=== PATIENT | female | born 1970 | race Caucasian/White ===

== ENCOUNTER 2016-06-30 13:53 | Observation (INO) | payer OTHER ==
[2016-06-30] VITALS (11 sets, daily range): BP systolic 98–119; BP diastolic 49–74; PULSE 52–82; RESP 12–18; TEMP 97.1; O2SAT 71–99
[~2016-06-30] VITALS: Ht 147.3 cm; Wt 70.0 kg
[~2016-06-30 13:53] MED LIST: ABIL30TA2 PO; ANTI2CAP PO; BACT2OIN2 TOPICAL; CALC600T25 PO; CETALOT TOPICAL; CHOL50008 PO; DEPO150I IM; DIAZ5 PO; FERR325T PO; FURO1TAB60 PO; GUAI200T PO; HALC0.25 PO; IBUP-232 PO; K-TA10TA PO; LEXA20TA PO; LOTR15T TOPICAL; NIAC500C4 PO; PROBCAP28 PO; SODI1TAB PO; THERTAB17 PO; THICPOW5; TRIL600T PO; TYLE325T PO; ZOCO10TA PO; ZYRT10CA PO; [UNRECOGNIZED DRUG - CODE] PO; [UNRECOGNIZED DRUG - CODE] TOP; [UNRECOGNIZED DRUG - CODE] TOPICAL; [UNRECOGNIZED DRUG - OTHER] TOP; [UNRECOGNIZED DRUG - OTHER] TOP
[2016-06-30] MEDS ORDERED: RESP: ALBUTEROL 2.5 MG/IPRATROPIUM 0.5 MG NEB (SCH) INH ONE (14:00)
[2016-06-30 14:35] LABS: AUTOMATED NEUTROPHIL # 2.6 TH/MM3 (1.8-7.7); BASOPHIL # 0.1 TH/MM3 (0-0.2); BASOPHIL % 1.3 % (0.0-2.0); EOSINOPHIL # 0.3 TH/MM3 (0-0.4); EOSINOPHIL % 6.7 % (0.0-4.0); HEMO FLAGS DIFF FINAL; LYMPH % 36.3 % (9.0-44.0); LYMPHOCYTE # 1.9 TH/MM3 (1.0-4.8); MEAN CELL VOLUME 98.9 FL (80.0-100.0); MEAN CORPUSCULAR HEMOGLOBIN 32.6 PG (27.0-34.0); MONO % 5.9 % (0.0-8.0); NEUT % 49.8 % (16.0-70.0); PLATELET COUNT 192 TH/MM3 (150-450); RED BLOOD COUNT 3.54 MIL/MM3 (4.00-5.30); RED CELL DISTRIBUTION WIDTH 14.4 % (11.6-17.2); WHITE BLOOD COUNT 5.1 TH/MM3 (4.0-11.0)
--- NOTE | 2016-06-30 14:36 | RADRPT ---
EXAM DATE/TIME: 06/30/2016 13:56 [place] COMPARISON: CHEST SINGLE AP, January 28, 2013, 11:00. INDICATIONS : Short of breath. MEDICAL HISTORY : Down's syndrome. SURGICAL HISTORY : None. ENCOUNTER: Initial ACUITY: 1 day PAIN SCORE: 0/10 LOCATION: Bilateral chest FINDINGS: A single view of the chest demonstrates the lungs to be symmetrically aerated without evidence of mas s, infiltrate or effusion. The cardiomediastinal contours are unremarkable. Osseous structures are intact. CONCLUSION: No acute disease. Heidi Forbes MD on June 30, 2016 at 14:35 Board Certified Radiologist. This report was verified electronically.
[2016-06-30 14:41] LABS: PROTHROMBIN TIME - PATIENT 10.8 SEC (9.8-11.6)
--- NOTE | 2016-06-30 14:42 | PD ---
HPI Chief Complaint: Respiratory Symptoms Time Seen by Provider: 13:57 Travel History International Travel<30 days: No Contact w/Intl Traveler<30days: No Traveled to known affect area: No History of Present Illness HPI 46 years old female was brought in by EMS for respiratory distress and hypoxemia. Patient was seen at the dentist around 11:00 this morning and had IV sedation for dental work. Patient was discharged back to the [facility] facility. Patient was found to be lethargic and almost unresponsive on the couch by staff member. EMS was called. O2 saturation was 58%. Patient was given 1 nitroglycerin sublingual, Lasix 75 mg IV and transported to the ED. Patient has history of Down's syndrome and usually nonverbal. Patient is on Lasix 40 mg daily for edema. No reported history of CHF or COPD. Patient has history of seizure disorder, anemia, anxiety, dyslipidemia. PFSH Past Medical History Anemia: Yes (ANEMIA; HYPERLIPIDEMIA) Arthritis: No Asthma: No Autoimmune Disease: No Blood Disorders: Yes (ANEMIA) Anxiety: Yes Heart Rhythm Problems: No Cancer: No Cardiovascular Problems: Yes High Cholesterol: No Chemotherapy: No Chest Pain: No Congestive Heart Failure: No COPD: No Cerebrovascular Accident: No Developmental Delay: Yes (DOWN SYNDROME) Diabetes: No Diminished Hearing: No Endocrine: No Gastrointestinal Disorders: No GERD: No Glaucoma: No Genitourinary: No Headaches: No Hepatitis: No Hiatal Hernia: No Hypertension: No Immune Disorder: No Kidney Stones: No Musculoskeletal: No Neurologic: No Psychiatric: Yes (intermittent explosive d/o) Respiratory: Yes Myocardial Infarction: No Pneumonia: Yes Radiation Therapy: No Renal Failure: No Seizures: Yes Sleep Apnea: No Thyroid Disease: No Ulcer: No Tetanus Vaccination: < 5 Years Influenza Vaccination: No ?: Unknown Past Surgical History Abdominal Surgery: Yes ("GASTROINTESTINAL SURGERY UNSURE WHAT EXACTLY") AICD: No Joint Replacement: No Pacemaker: No Other Surgery: No Social History Alcohol Use: No Tobacco Use: No Substance Use: No Allergies-Medications (Allergen,Severity, Reaction): Coded Allergies: No Known Allergies (Unverified , 04/19/16) Reported Meds & Prescriptions Reported Meds & Active Scripts Active Reported Solbar Pf Liquid/Gel Spf3 (Sunscreens) 1 Gel Gel 1 Applic TOP DIRECTED PRN Halcion (Triazolam) 0.25 Mg Tab 0.5 Mg PO DIRECTED PRN Probiotic Daily (Probiotic Product) 1 Cap Cap 1 Cap PO DAILY Niacin Flush Free (Inositol Niacinate) 500 Mg Cap 500 Mg PO HS Calcium (Calcium Carbonate) 600 Mg Tab 1,200 Mg PO BID Off [facility] Unscented (Diethyltoluamide (Deet)) 7 % Spr 1 Applic TOP DIRECTED PRN Bactroban (Mupirocin) 2 % Oin 1 Applic TOPICAL BID PRN Ibuprofen 600 Mg Tab 600 Mg PO BID PRN Lotrisone Topical (Betamethasone/Clotrimazole) 1-0.05% Cream 1 Applic TOPICAL BID Apply to affected area(s) on arms,legs,perineal area for rash,mild burning or stinging Guaifenesin 200 Mg Tab 200 Mg PO Q4HR PRN Anti-Diarrheal (Loperamide HCl) 2 Mg Cap 2 Mg PO DIRECTED PRN One capsule after each loose stool. Not to exceed 4 capsules per day. Tylenol (Acetaminophen) 325 Mg Tab 650 Mg PO Q4H PRN Not to exceed 3,000mg/24hr Zeasorb-AF Topical Powder (Miconazole Topical Powder) 2 % Pow 1 Applic TOPICAL DAILY Apply to areas on inner thighs Thick-It Original (Starch-Maltodextrin (Thickenin) 1 Pow Pow DIRECTED [place] Thick Liquids Thera-M (Multiple Vitamins W/ Minerals) 1 Tab 1 Tab PO DAILY Sodium Chloride 1 Gm Tab 1 Gm PO BID Zocor (Simvastatin) 10 Mg Tab 10 Mg PO HS K-Tab (Potassium Chloride) 10 Meq Tab 10 Meq PO DAILY Trileptal (Oxcarbazepine) 600 Mg Tab 600 Mg PO BID Depo-Provera Inj (Medroxyprogesterone Inj) 150 Mg/Ml Inj 150 Mg IM Q90D Vitamin D3 (Cholecalciferol) 5,000 Unit Tab 5,000 Units PO DAILY @ 1700 Lasix (Furosemide) 40 Mg Tab 40 Mg PO DAILY Flexitol Heel [place] (Podiatric Products) 1 Oin Oin 1 Applic TOP BID Apply to both heels Ferrous Sulfate 325 Mg Tab 325 Mg PO BID Lexapro (Escitalopram Oxalate) 20 Mg Tab 20 Mg PO DAILY Valium (Diazepam) 5 Mg Tab 5 Mg PO TID [place] Pro-Health (Cetylpyridinium Chloride (Mout) 0.07 % Liq 1 Applic PO BID Moisten toothette swab with mouthwash for oral hygiene Zyrtec Allergy (Cetirizine HCl) 10 Mg Cap 10 Mg PO DAILY Cetaphil Moisturizing (Emollient) 1 Lot Lot 1 Applic TOPICAL DAILY APPLY FROM NECK TO TOES Abilify (Aripiprazole) 30 Mg Tab 30 Mg PO DAILY Review of Systems General / Constitutional: No: Fever Eyes: No: Visual changes HENT: No: Headaches Cardiovascular: No: Chest Pain or Discomfort Respiratory: No: Shortness of Breath Gastrointestinal: No: Abdominal Pain Genitourinary: No: Dysuria Musculoskeletal: No: Pain Skin: No Rash Neurologic: No: Weakness Psychiatric: No: Depression Endocrine: No: Polydipsia Hematologic/Lymphatic: No: Easy Bruising Physical Exam Narrative GENERAL: Well-nourished, well-developed patient. SKIN: Warm and dry. HEAD: Normocephalic. EYES: No scleral icterus. No injection or drainage. NECK: Supple, trachea midline. No JVD or lymphadenopathy. CARDIOVASCULAR: Regular rate and rhythm without murmurs, gallops, or rubs. RESPIRATORY: Breath sounds equal bilaterally. No accessory muscle use. Patient had diffuse rhonchi bilaterally with mild expiratory wheezes. GASTROINTESTINAL: Abdomen soft, non-tender, nondistended. MUSCULOSKELETAL: No cyanosis, or edema. BACK: Nontender without obvious deformity. No CVA tenderness. Neurologic exam: Patient awake and alert noncommunicative. Patient moves all extremity well. Data Data Last Documented VS Vital Signs Date Time Temp Pulse Resp B/P Pulse Ox O2 Delivery O2 Flow Rate FiO2 06/30/16 14:26 97 75 06/30/16 14:04 12 Non-Rebreather 15 06/30/16 14:04 75 98/57 06/30/16 13:57 97.1 Orders Electrocardiogram (06/30/16 13:57) Complete Blood Count With Diff (06/30/16 13:57) Comprehensive Metabolic Panel (06/30/16 13:57) Creatine Kinase (Cpk) (06/30/16 13:57) Troponin I (06/30/16 13:57) B-Type Natriuretic Peptide (06/30/16 13:57) Prothrombin Time / Inr (Pt) (06/30/16 13:57) Act Partial Throm Time (Ptt) (06/30/16 13:57) Blood Culture (06/30/16 13:57) Urinalysis - C+S If Indicated (06/30/16 13:57) Chest, Single Ap (06/30/16 13:57) Iv Access Insert/Monitor (06/30/16 13:57) Ecg Monitoring (06/30/16 13:57) Oximetry (06/30/16 13:57) Lactic Acid (06/30/16 13:57) Albuterol-Ipratropium Neb (Duoneb Neb) (06/30/16 14:00) Urinary Catheter Insert/Apply (06/30/16 14:27) Labs Laboratory Tests Test 06/30/16 06/30/16 06/30/16 14:00 14:15 14:30 White Blood Count 5.1 TH/MM3 Red Blood Count 3.54 MIL/MM3 Hemoglobin 11.5 GM/DL Hematocrit 35.0 % Mean Corpuscular Volume 98.9 FL Mean Corpuscular Hemoglobin 32.6 PG Mean Corpuscular Hemoglobin 33.0 % Concent Red Cell Distribution Width 14.4 % Platelet Count 192 TH/MM3 Mean Platelet Volume 10.5 FL Neutrophils (%) (Auto) 49.8 % Lymphocytes (%) (Auto) 36.3 % Monocytes (%) (Auto) 5.9 % Eosinophils (%) (Auto) 6.7 % Basophils (%) (Auto) 1.3 % Neutrophils # (Auto) 2.6 TH/MM3 Lymphocytes # (Auto) 1.9 TH/MM3 Monocytes # (Auto) 0.3 TH/MM3 Eosinophils # (Auto) 0.3 TH/MM3 Basophils # (Auto) 0.1 TH/MM3 CBC Comment DIFF FINAL Differential Comment Prothrombin Time 10.8 SEC Prothromb Time International 1.0 RATIO Ratio Activated Partial 24.0 SEC Thromboplast Time Sodium Level 134 MEQ/L Potassium Level 3.3 MEQ/L Chloride Level 98 MEQ/L Carbon Dioxide Level 27.1 MEQ/L Anion Gap 9 MEQ/L Blood Urea Nitrogen 8 MG/DL Creatinine 0.59 MG/DL Estimat Glomerular Filtration 110 ML/MIN Rate Random Glucose 123 MG/DL Calcium Level 8.1 MG/DL Total Bilirubin LESS THAN 0.1 MG/DL Aspartate Amino Transf 28 U/L (AST/SGOT) Alanine Aminotransferase 38 U/L (ALT/SGPT) Alkaline Phosphatase 102 U/L Total Creatine Kinase 91 U/L Troponin I LESS THAN 0.02 NG/ML B-Type Natriuretic Peptide 51 PG/ML Total Protein 6.8 GM/DL Albumin 2.9 GM/DL Lactic Acid Level 2.0 mmol/L Urine Color COLORLESS Urine Turbidity CLEAR Urine pH 7.0 Urine Specific [place] 1.006 Urine Protein NEG mg/dL Urine Glucose (UA) NEG mg/dL Urine Ketones NEG mg/dL Urine Occult Blood NEG Urine Nitrite NEG Urine Bilirubin NEG Urine Urobilinogen LESS THAN 2.0 MG/DL Urine Leukocyte Esterase NEG Urine RBC LESS THAN 1 /hpf Urine WBC LESS THAN 1 /hpf Urine Squamous Epithelial <1 /hpf Cells Urine Mucus FEW /lpf Microscopic Urinalysis Comment CULT NOT INDICATED MDM Medical Decision Making Medical Screen Exam Complete: Yes Emergency Medical Condition: Yes Interpretation(s) Last Impressions Chest X-Ray 06/30/16 1357 Signed Impressions: Service Date/Time: Thursday, June 30, 2016 13:56 - CONCLUSION: No acute disease. Heidi Forbes MD 1509 PM. CBC within normal limit. Sodium 134. Potassium 3.3. BNP 51. 1517 p.m. CMP within normal limit. Calcium 8.1. Cardiac enzymes are normal. UA is negative. Differential Diagnosis Differential diagnosis including medication overdose, CHF, reactive airway disease, respiratory failure, TIA, CVA, electrolyte imbalance, sepsis. Narrative Course 46 his old female with lethargy and shortness of breath. Status post sedation for dental work this morning. Patient has history of Down's syndrome and normally noncommunicative. Patient was given Lasix 75 mg IV ride to arrival. Albuterol Atrovent unit dose treatment times one. Diagnosis Primary Impression: Medication overdose Qualified Code: T50.901A - Medication overdose, accidental or unintentional, initial encounter Additional Impression: Reactive airway disease Qualified Code: J45.20 - Reactive airway disease, mild intermittent, uncomplicated Admitting Information Admitting Physician Requests: Observation Josh Painter MD Jun 30, 2016 14:41
[2016-06-30 14:54] LABS: ANION GAP 9 MEQ/L (5-15); BICARBONATE 27.1 MEQ/L (21.0-32.0); BLOOD UREA NITROGEN 8 MG/DL (7-18); CHLORIDE 98 MEQ/L (98-107); GLOMERULAR FILTRATION RATE 110 ML/MIN (>89); POTASSIUM 3.3 MEQ/L (3.5-5.1); SODIUM (NA) 134 MEQ/L (136-145)
[2016-06-30 15:00] LABS: ALKALINE PHOSPHATASE 102 U/L (45-117); ALT (GPT) 38 U/L (10-53); AST (GOT) 28 U/L (15-37); TOTAL BILIRUBIN ADULT LESS THAN 0.1 MG/DL (0.2-1.0)
[2016-06-30 15:10] LABS: CREATINE KINASE 91 U/L (26-192)
[2016-06-30 15:11] LABS: BLOOD, URINE NEG (NEG); COMMENT (UR) CULT NOT INDICATED; CULTURE IF INDICATED CULT NOT INDICATED; GLUCOSE,URINE NEG (NEG); KETONE, URINE NEG (NEG); MUCUS URINE FEW /lpf (OCC); NITRITE,URINE NEG (NEG); SQUAMOUS EPITHELIAL CELL URINE <1 /hpf (0-5); URINE COLOR COLORLESS (YELLW/STRAW)
--- NOTE | 2016-06-30 16:59 | HHI.HP ---
[facility] Service [place] [facility] Primary Care Physician Unknown Admission Diagnosis medication overdose. Reactive airway disease. Diagnoses: Travel History International Travel<30 Days: No Contact w/Intl Traveler <30 Da: No Traveled to Known Affected Are: No Past Family Social History Allergies: Coded Allergies: No Known Allergies (Unverified , 04/19/16) Physical Exam Vital Signs Vital Signs Date Time Temp Pulse Resp B/P Pulse Ox O2 Delivery O2 Flow Rate FiO2 06/30/16 15:59 52 12 107/49 90 Non-Rebreather 15 06/30/16 15:00 52 12 101/53 99 Non-Rebreather 06/30/16 14:26 97 75 06/30/16 14:04 12 91 Non-Rebreather 15 06/30/16 14:04 75 12 98/57 85 BiPAP 06/30/16 14:04 83 12 90 Non-Rebreather 15 06/30/16 13:57 97.1 82 12 117/55 71 Physical Exam GENERAL: This is a well-nourished, well-developed patient, in no apparent distress. SKIN: No rashes, ecchymoses or lesions. Cool and dry. HEAD: Atraumatic. Normocephalic. No temporal or scalp tenderness. EYES: Pupils equal round and reactive. Extraocular motions intact. No scleral icterus. No injection or drainage. ENT: Nose without bleeding, purulent drainage or septal hematoma. Throat without erythema, tonsillar hypertrophy or exudate. Uvula midline. Airway patent. NECK: Trachea midline. No JVD or lymphadenopathy. Supple, nontender, no meningeal signs. CARDIOVASCULAR: Regular rate and rhythm without murmurs, gallops, or rubs. RESPIRATORY: Clear to auscultation. Breath sounds equal bilaterally. No wheezes , rales, or rhonchi. GASTROINTESTINAL: Abdomen soft, non-tender, nondistended. No hepato-splenomegaly , or palpable masses. No guarding. MUSCULOSKELETAL: Extremities without clubbing, cyanosis, or edema. No joint tenderness, effusion, or edema noted. No calf tenderness. Negative Homans sign bilaterally. NEUROLOGICAL: Awake and alert. Cranial nerves II through XII intact. Motor and sensory grossly within normal limits. Five out of 5 muscle strength in all muscle groups. Normal speech. Laboratory Laboratory Tests Test 06/30/16 06/30/16 06/30/16 14:00 14:15 14:30 White Blood Count 5.1 Red Blood Count 3.54 Hemoglobin 11.5 Hematocrit 35.0 Mean Corpuscular Volume 98.9 Mean Corpuscular Hemoglobin 32.6 Mean Corpuscular Hemoglobin 33.0 Concent Red Cell Distribution Width 14.4 Platelet Count 192 Mean Platelet Volume 10.5 Neutrophils (%) (Auto) 49.8 Lymphocytes (%) (Auto) 36.3 Monocytes (%) (Auto) 5.9 Eosinophils (%) (Auto) 6.7 Basophils (%) (Auto) 1.3 Neutrophils # (Auto) 2.6 Lymphocytes # (Auto) 1.9 Monocytes # (Auto) 0.3 Eosinophils # (Auto) 0.3 Basophils # (Auto) 0.1 CBC Comment DIFF FINAL Differential Comment Prothrombin Time 10.8 Prothromb Time International 1.0 Ratio Activated Partial 24.0 Thromboplast Time Sodium Level 134 Potassium Level 3.3 Chloride Level 98 Carbon Dioxide Level 27.1 Anion Gap 9 Blood Urea Nitrogen 8 Creatinine 0.59 Estimat Glomerular Filtration 110 Rate Random Glucose 123 Calcium Level 8.1 Total Bilirubin LESS THAN 0.1 Aspartate Amino Transf 28 (AST/SGOT) Alanine Aminotransferase 38 (ALT/SGPT) Alkaline Phosphatase 102 Total Creatine Kinase 91 Troponin I LESS THAN 0.02 B-Type Natriuretic Peptide 51 Total Protein 6.8 Albumin 2.9 Lactic Acid Level 2.0 Urine Color COLORLESS Urine Turbidity CLEAR Urine pH 7.0 Urine Specific [place] 1.006 Urine Protein NEG Urine Glucose (UA) NEG Urine Ketones NEG Urine Occult Blood NEG Urine Nitrite NEG Urine Bilirubin NEG Urine Urobilinogen LESS THAN 2.0 Urine Leukocyte Esterase NEG Urine RBC LESS THAN 1 Urine WBC LESS THAN 1 Urine Squamous Epithelial <1 Cells Urine Mucus FEW Microscopic Urinalysis Comment CULT NOT INDICATED Date/Time Procedure Status Source Growth 06/30/16 14:15 Aerobic Blood Culture Received Blood Peripheral Pending 06/30/16 14:15 Anaerobic Blood Culture Received Blood Peripheral Pending Result Diagram: 06/30/16 1400 06/30/16 1400 Physician Certification Order for Inpatient Services The services are ordered in accordance with Medicare regulations or non- Medicare payer requirements, as applicable. In the case of services not specified as inpatient-only, they are appropriately provided as inpatient services in accordance with the 2-midnight benchmark. days is the estimated time the patient will need to remain in the hospital, assuming treatment plan goals are met and no additional complications. Yesi Garza Jun 30, 2016 16:59
[2016-06-30] MEDS ORDERED: guaiFENesin SOLUTION 200 MG/10 ML CUP PO PRN (17:15)
[2016-06-30] MEDS ORDERED: ONDANSETRON HCL 4 MG/2 ML VIAL IVP PRN (17:15)
[2016-06-30] MEDS ORDERED: RESP: ALBUTEROL 2.5 MG/IPRATROPIUM 0.5 MG NEB (PRN) NEB (17:15)
[2016-06-30] MEDS ORDERED: SODIUM CHLORIDE 0.9% FLUSH 5 ML FLUSH FLUSH PRN (17:15)
[2016-06-30] MEDS ORDERED: ACETAMINOPHEN 325 MG TAB PO PRN (17:15)
[2016-06-30] MEDS ORDERED: POTASSIUM CL 40 MEQ/30 ML LIQ UDC PO ONE (17:15)
[2016-06-30] MEDS ORDERED: NALOXONE HCL 0.4 MG/ML AMP IV PRN (17:15)
--- NOTE | 2016-06-30 18:59 | HHI.PR ---
Objective Objective Results - Vital Signs Date Time Temp Pulse Resp B/P Pulse Ox O2 Delivery O2 Flow Rate FiO2 06/30/16 18:30 75 18 119/72 96 Nasal Cannula 3 06/30/16 17:32 72 18 119/62 97 Partial Rebreather 15 06/30/16 15:59 52 12 107/49 90 Non-Rebreather 15 06/30/16 15:00 52 12 101/53 99 Non-Rebreather 06/30/16 14:26 97 75 06/30/16 14:04 12 91 Non-Rebreather 15 06/30/16 14:04 75 12 98/57 85 BiPAP 06/30/16 14:04 83 12 90 Non-Rebreather 15 06/30/16 13:57 97.1 82 12 117/55 71 Result Diagram: 06/30/16 1400 06/30/16 1400 Other Results Laboratory Tests Test 06/30/16 06/30/16 06/30/16 14:00 14:15 14:30 White Blood Count 5.1 Red Blood Count 3.54 Hemoglobin 11.5 Hematocrit 35.0 Mean Corpuscular Volume 98.9 Mean Corpuscular Hemoglobin 32.6 Mean Corpuscular Hemoglobin 33.0 Concent Red Cell Distribution Width 14.4 Platelet Count 192 Mean Platelet Volume 10.5 Neutrophils (%) (Auto) 49.8 Lymphocytes (%) (Auto) 36.3 Monocytes (%) (Auto) 5.9 Eosinophils (%) (Auto) 6.7 Basophils (%) (Auto) 1.3 Neutrophils # (Auto) 2.6 Lymphocytes # (Auto) 1.9 Monocytes # (Auto) 0.3 Eosinophils # (Auto) 0.3 Basophils # (Auto) 0.1 CBC Comment DIFF FINAL Differential Comment Prothrombin Time 10.8 Prothromb Time International 1.0 Ratio Activated Partial 24.0 Thromboplast Time Sodium Level 134 Potassium Level 3.3 Chloride Level 98 Carbon Dioxide Level 27.1 Anion Gap 9 Blood Urea Nitrogen 8 Creatinine 0.59 Estimat Glomerular Filtration 110 Rate Random Glucose 123 Calcium Level 8.1 Total Bilirubin LESS THAN 0.1 Aspartate Amino Transf 28 (AST/SGOT) Alanine Aminotransferase 38 (ALT/SGPT) Alkaline Phosphatase 102 Total Creatine Kinase 91 Troponin I LESS THAN 0.02 B-Type Natriuretic Peptide 51 Total Protein 6.8 Albumin 2.9 Lactic Acid Level 2.0 Urine Color COLORLESS Urine Turbidity CLEAR Urine pH 7.0 Urine Specific [place] 1.006 Urine Protein NEG Urine Glucose (UA) NEG Urine Ketones NEG Urine Occult Blood NEG Urine Nitrite NEG Urine Bilirubin NEG Urine Urobilinogen LESS THAN 2.0 Urine Leukocyte Esterase NEG Urine RBC LESS THAN 1 Urine WBC LESS THAN 1 Urine Squamous Epithelial <1 Cells Urine Mucus FEW Microscopic Urinalysis Comment CULT NOT INDICATED Date/Time Procedure Status Source Growth 06/30/16 14:15 Aerobic Blood Culture Received Blood Peripheral Pending 06/30/16 14:15 Anaerobic Blood Culture Received Blood Peripheral Pending Physical Exam Physical Exam PT is seen & Examined d/w PT's intensive care anaesthetist at bedside d/w Yesi see orders see H&P will observe overnight will f/u Rosanna Allen MD Jun 30, 2016 18:59
[2016-06-30] MEDS: RESP: ALBUTEROL 2.5 MG/IPRATROPIUM 0.5 MG NEB (SCH) NEB (20:18)
--- NOTE | 2016-06-30 20:35 | HHI.HP ---
HPI Service [facility] Primary Care Physician Unknown Admission Diagnosis medication overdose. Reactive airway disease. Diagnoses: Chief Complaint: lethargic, hypoxic (Yesi Garza) Travel History International Travel<30 Days: No Contact w/Intl Traveler <30 Da: No Traveled to Known Affected Are: No (Yesi Gazra) History of Present Illness This a 46-year-old female with history of Down syndrome explosive disorder, anemia, hyperlipidemia. Patient was brought in for evaluation for respiratory distress and hypoxemia. Patient is unable to provide any details, information is obtained from the emergency room record. Apparently patient had a dental procedure on 11 AM and was given IV sedation. Patient was discharge back to the detention. A staff member found the patient lethargic, almost unresponsive. EMS was called and O2 sats were found at 58%. Patient was given nitroglycerin sublingual, Lasix 75 mg IV and oxygen. Patient was transported for evaluation. Patient does take Lasix 40 mg possibly for edema, no documented history of congestive heart failure. No history of COPD. Patient is not on any oxygen at home. Patient was given DuoNeb's, was initially put on CPAP then changed to BiPAP. She was noted with diffuse rhonchi and expiratory wheezing. Laboratory workup was completed, no elevation in troponin, BNP was 51. Lactic acid was 2. Patient was hypokalemic, potassium of 3.3. Sodium was 134. White blood count elevation, hemoglobin 11.5, hematocrit 35. Blood pressure was 117/55, temperature 97.1, respiratory rate 12, pulse rate 82. EKG did not show any acute ST segment elevation, was noted with bradycardia and occasional PVC. Chest x-ray did not reveal any fluid overload, no infiltrates. Blood cultures were obtained, no antibiotics were initiated. There is no reported cough, no sputum, no fever. Patient is evaluated in the emergency room , caregiver is at bedside. Patient is calm, she is noncommunicative. Per caregiver, she only talks to people familiar to her. She is ambulatory, no recent illnesses. Does have history of explosive disorder and occasional becomes agitated. Patient has been titrated down to 3 L, she is on a face mask as she was removing nasal cannula. There is no accessory muscle use. Patient is not able to verbalize whether she is in any discomfort. Sats are 97%. Patient is admitted for further evaluation and treatment. (Yesi Garza) Review of Systems ROS Limitations: Poor Historian (Yesi Garza) Past Family Social History Past Medical History Anemia Hyperlipidemia Down syndrome Intermittent explosive disorder Prior history of pneumonia Left eye blindness Dysphagia Constipation Past Surgical History Recent dental surgery Umbilical hernia repair Reported Medications Reported Meds & Active Scripts Active Reported Solbar Pf Liquid/Gel Spf3 (Sunscreens) 1 Gel Gel 1 Applic TOP DIRECTED PRN Halcion (Triazolam) 0.25 Mg Tab 0.5 Mg PO DIRECTED PRN Probiotic Daily (Probiotic Product) 1 Cap Cap 1 Cap PO DAILY Niacin Flush Free (Inositol Niacinate) 500 Mg Cap 500 Mg PO HS Calcium (Calcium Carbonate) 600 Mg Tab 1,200 Mg PO BID Off [facility] Unscented (Diethyltoluamide (Deet)) 7 % Spr 1 Applic TOP DIRECTED PRN Bactroban (Mupirocin) 2 % Oin 1 Applic TOPICAL BID PRN Ibuprofen 600 Mg Tab 600 Mg PO BID PRN Lotrisone Topical (Betamethasone/Clotrimazole) 1-0.05% Cream 1 Applic TOPICAL BID Apply to affected area(s) on arms,legs,perineal area for rash,mild burning or stinging Guaifenesin 200 Mg Tab 200 Mg PO Q4HR PRN Anti-Diarrheal (Loperamide HCl) 2 Mg Cap 2 Mg PO DIRECTED PRN One capsule after each loose stool. Not to exceed 4 capsules per day. Tylenol (Acetaminophen) 325 Mg Tab 650 Mg PO Q4H PRN Not to exceed 3,000mg/24hr Zeasorb-AF Topical Powder (Miconazole Topical Powder) 2 % Pow 1 Applic TOPICAL DAILY Apply to areas on inner thighs Thick-It Original (Starch-Maltodextrin (Thickenin) 1 Pow Pow DIRECTED [place] Thick Liquids Thera-M (Multiple Vitamins W/ Minerals) 1 Tab 1 Tab PO DAILY Sodium Chloride 1 Gm Tab 1 Gm PO BID Zocor (Simvastatin) 10 Mg Tab 10 Mg PO HS K-Tab (Potassium Chloride) 10 Meq Tab 10 Meq PO DAILY Trileptal (Oxcarbazepine) 600 Mg Tab 600 Mg PO BID Depo-Provera Inj (Medroxyprogesterone Inj) 150 Mg/Ml Inj 150 Mg IM Q90D Vitamin D3 (Cholecalciferol) 5,000 Unit Tab 5,000 Units PO DAILY @ 1700 Lasix (Furosemide) 40 Mg Tab 40 Mg PO DAILY Flexitol Heel [place] ([employer]iatric Products) 1 Oin Oin 1 Applic TOP BID Apply to both heels Ferrous Sulfate 325 Mg Tab 325 Mg PO BID Lexapro (Escitalopram Oxalate) 20 Mg Tab 20 Mg PO DAILY Valium (Diazepam) 5 Mg Tab 5 Mg PO TID [place] [facility] (Cetylpyridinium Chloride (Mout) 0.07 % Liq 1 Applic PO BID Moisten toothette swab with mouthwash for oral hygiene Zyrtec Allergy (Cetirizine HCl) 10 Mg Cap 10 Mg PO DAILY Cetaphil Moisturizing (Emollient) 1 Lot Lot 1 Applic TOPICAL DAILY APPLY FROM NECK TO TOES Abilify (Aripiprazole) 30 Mg Tab 30 Mg PO DAILY (Yesi Garza) Allergies: Coded Allergies: No Known Allergies (Unverified , 04/19/16) Active Ordered Medications Inpatient Medications Acetaminophen (Tylenol) 650 mg Q4H PRN PO TEMP > 100.4; Start 06/30/16 at 17:15 Albuterol/ Ipratropium (Duoneb Neb) 1 ampule Q4HR NEB PRN NEB WHEEZING; Start 06/30/16 at 17:15 Aripiprazole (Abilify) 30 mg DAILY PO ; Start 07/01/16 at 09:00 Cetirizine HCl (ZyrTEC) 10 mg DAILY PO ; Start 07/01/16 at 09:00 Escitalopram Oxalate (Lexapro) 20 mg DAILY PO ; Start 07/01/16 at 09:00 Ferrous Sulfate (Ferrous Sulfate) 325 mg BID PO ; Start 06/30/16 at 21:00 Furosemide (Lasix) 40 mg DAILY PO ; Start 07/01/16 at 09:00 Guaifenesin (Robitussin Liq) 200 mg Q4HR PRN PO COUGH; Start 06/30/16 at 17:15 IV Flush (NS Flush) 2 ml BID FLUSH ; Start 06/30/16 at 21:00 Naloxone HCl (Narcan Inj) 0.4 mg UNSCH PRN IV SEE LABEL COMMENTS; Start at 17:15 Ondansetron HCl (Zofran Inj) 4 mg Q6H PRN IVP NAUSEA OR VOMITING; Start at 17:15 Oxcarbazepine (Trileptal) 600 mg BID PO ; Start 06/30/16 at 21:00 Potassium Chloride (KCl 40 Meq/30 ml Liq) 40 meq ONCE ONCE PO Last administered on 06/30/16t 17:15; Start 06/30/16 at 17:15; Stop 06/30/16 at 17:31 ; Status DC Potassium Chloride (KCl) 10 meq DAILY PO ; Start 07/01/16 at 09:00 Pravastatin Sodium (Pravachol) 20 mg HS PO CM; Start 06/30/16 at 21:00 Family History Unable to obtain Social History Resident at a detention, has family who live out of town. No documented history of smoking, no alcohol, no illegal drug use. (Yesi Garza) Physical Exam Vital Signs Vital Signs Date Time Temp Pulse Resp B/P Pulse Ox O2 Delivery O2 Flow Rate FiO2 06/30/16 19:41 65 18 110/71 99 Nasal Cannula 3 06/30/16 18:30 75 18 119/72 96 Nasal Cannula 3 06/30/16 17:32 72 18 119/62 97 Partial Rebreather 15 06/30/16 15:59 52 12 107/49 90 Non-Rebreather 15 06/30/16 15:00 52 12 101/53 99 Non-Rebreather 06/30/16 14:26 97 75 06/30/16 14:04 12 91 Non-Rebreather 15 06/30/16 14:04 75 12 98/57 85 BiPAP 06/30/16 14:04 83 12 90 Non-Rebreather 15 06/30/16 13:57 97.1 82 12 117/55 71 Physical Exam GENERAL: This is a well-nourished female, does not appear in any distress. SKIN: No rashes, ecchymoses or lesions. Cool and dry. HEAD: Atraumatic. Normocephalic. No temporal or scalp tenderness. EYES: Left diaper line. Right eye exophthalmus, possibly prosthetic eye. ENT: Nose without bleeding, purulent drainage or septal hematoma. Throat without erythema, tonsillar hypertrophy or exudate. Uvula midline. Airway patent. Oral mucosa dry. Poor dentition. NECK: Trachea midline. No JVD or lymphadenopathy. Supple, nontender, no meningeal signs. CARDIOVASCULAR: Regular rate and rhythm without murmurs, gallops, or rubs. RESPIRATORY: Faint bibasilar Rales, diminished, mild expiratory wheezes. No accessory muscle use. GASTROINTESTINAL: Abdomen soft, non-tender, nondistended. No hepato-splenomegaly , or palpable masses. No guarding. MUSCULOSKELETAL: Extremities without clubbing, cyanosis, has trace ankle edema. Pedal pulses 1+ bilat. No joint tenderness, effusion, or edema noted. No calf tenderness. Negative Homans sign bilaterally. NEUROLOGICAL: Patient is awake, she is not talking, not following commands. Cooperative. Appears to move all extremities well. Laboratory Laboratory Tests Test 06/30/16 06/30/16 06/30/16 14:00 14:15 14:30 White Blood Count 5.1 Red Blood Count 3.54 Hemoglobin 11.5 Hematocrit 35.0 Mean Corpuscular Volume 98.9 Mean Corpuscular Hemoglobin 32.6 Mean Corpuscular Hemoglobin 33.0 Concent Red Cell Distribution Width 14.4 Platelet Count 192 Mean Platelet Volume 10.5 Neutrophils (%) (Auto) 49.8 Lymphocytes (%) (Auto) 36.3 Monocytes (%) (Auto) 5.9 Eosinophils (%) (Auto) 6.7 Basophils (%) (Auto) 1.3 Neutrophils # (Auto) 2.6 Lymphocytes # (Auto) 1.9 Monocytes # (Auto) 0.3 Eosinophils # (Auto) 0.3 Basophils # (Auto) 0.1 CBC Comment DIFF FINAL Differential Comment Prothrombin Time 10.8 Prothromb Time International 1.0 Ratio Activated Partial 24.0 Thromboplast Time Sodium Level 134 Potassium Level 3.3 Chloride Level 98 Carbon Dioxide Level 27.1 Anion Gap 9 Blood Urea Nitrogen 8 Creatinine 0.59 Estimat Glomerular Filtration 110 Rate Random Glucose 123 Calcium Level 8.1 Total Bilirubin LESS THAN 0.1 Aspartate Amino Transf 28 (AST/SGOT) Alanine Aminotransferase 38 (ALT/SGPT) Alkaline Phosphatase 102 Total Creatine Kinase 91 Troponin I LESS THAN 0.02 B-Type Natriuretic Peptide 51 Total Protein 6.8 Albumin 2.9 Lactic Acid Level 2.0 Urine Color COLORLESS Urine Turbidity CLEAR Urine pH 7.0 Urine Specific [place] 1.006 Urine Protein NEG Urine Glucose (UA) NEG Urine Ketones NEG Urine Occult Blood NEG Urine Nitrite NEG Urine Bilirubin NEG Urine Urobilinogen LESS THAN 2.0 Urine Leukocyte Esterase NEG Urine RBC LESS THAN 1 Urine WBC LESS THAN 1 Urine Squamous Epithelial <1 Cells Urine Mucus FEW Microscopic Urinalysis Comment CULT NOT INDICATED Date/Time Procedure Status Source Growth 06/30/16 14:15 Aerobic Blood Culture Received Blood Peripheral Pending 06/30/16 14:15 Anaerobic Blood Culture Received Blood Peripheral Pending (Yesi Garza) Result Diagram: 06/30/16 1400 06/30/16 1400 Imaging Last Impressions Chest X-Ray 06/30/16 1357 Signed Impressions: Service Date/Time: Thursday, June 30, 2016 13:56 - CONCLUSION: No acute disease. Heidi Forbes MD (Yesi Garza) Assessment and Plan Problem List: (1) Respiratory failure with hypoxia Plan: resolved (2) Medication overdose (3) Reactive airway disease (4) History of recent dental procedure (5) Down syndrome (6) Hyperlipidemia Assessment and Plan Admit to Dr. Allen 46-year-old female with history of Down syndrome, underwent dental procedure today and was discharged back to detention. Patient was found lethargic, almost unresponsive with hypoxia, sats 58%. Patient was given Lasix, Ntg paste , DuoNeb, was put on him CPAP and BiPAP. Patient is now awake, no respiratory distress, oxygen down to 3 L. No evidence of infection, no evidence of congestive heart failure via x-ray. Possibly medication overdose leading to hypoxic respiratory failure. Patient is on oral diuretics at home. No history of CHF. -Patient will be monitored closely, continue with oxygen at 3 L via facemask, keep sats greater than 92% DuoNeb's 4 times a day and when necessary Cardiac telemetry -We will check 2-D echo -We will resume Lasix 40 mg by mouth daily Hypokalemia Replace potassium History of Down syndrome with explosive disorder, cooperative at this time, not agitated. Patient has 24-hour ggenr-knb-rftoa caregiver, she will stay with patient Continue with home medications Hyperlipidemia Continue with home medications SCDs for DVT prophylaxis Plan of care has been discussed with the patient's caregiver, RN and attending. Further management of the patient will be dependent on the hospital course This patient was seen by myself and Dr. Allen, this H&P is written on his behalf (Yesi Garza) Assessment and Plan PT is seen & Examined d/w PT's pet care technician at bedside d/w Yesi see orders see H&P will observe overnight will f/u Rosanna Allen MD Jun 30, 2016 18:59 (Rosanna Allen MD) Problem Qualifiers (1) Respiratory failure with hypoxia: Qualified Code: J96.01 - Acute respiratory failure with hypoxia (2) Medication overdose: Qualified Code: T50.901A - Medication overdose, accidental or unintentional, initial encounter (3) Reactive airway disease: Qualified Code: J45.20 - Reactive airway disease, mild intermittent, uncomplicated (4) Hyperlipidemia: Qualified Code: E78.5 - Hyperlipidemia, unspecified hyperlipidemia type Yesi Garza Jun 30, 2016 20:35 Rosanna Allen MD Jul 02, 2016 09:26
[2016-06-30] MEDS: SODIUM CHLORIDE 0.9% FLUSH 5 ML FLUSH FLUSH SCH (21:00)
[2016-06-30] MEDS: PRAVASTATIN SOD 20 MG TAB PO SCH (21:24)
[2016-06-30] MEDS: FERROUS SULFATE 325 MG (65 MG ELEMENTAL IRON) TAB PO SCH (21:24)
[2016-06-30] MEDS: OXcarbazepine 600 MG TAB PO SCH (21:25)
[2016-07-01] VITALS (7 sets, daily range): BP systolic 90–117; BP diastolic 50–64; PULSE 63–84; RESP 18–20; TEMP 96.9–98.6; O2SAT 95–97
[2016-07-01 05:19] LABS: BASOPHIL % 0.4 % (0.0-2.0); EOSINOPHIL # 0.1 TH/MM3 (0-0.4); EOSINOPHIL % 0.7 % (0.0-4.0); HEMATOCRIT 31.6 % (35.0-46.0); HEMO FLAGS DIFF FINAL; LYMPH % 6.5 % (9.0-44.0); LYMPHOCYTE # 0.6 TH/MM3 (1.0-4.8); MEAN CELL VOLUME 96.7 FL (80.0-100.0); MEAN CORPUSCULAR HEMOGLOBIN 32.9 PG (27.0-34.0); MONO % 2.5 % (0.0-8.0); NEUT % 89.9 % (16.0-70.0); PLATELET COUNT 166 TH/MM3 (150-450); RED BLOOD COUNT 3.27 MIL/MM3 (4.00-5.30); RED CELL DISTRIBUTION WIDTH 14.2 % (11.6-17.2); WHITE BLOOD COUNT 8.9 TH/MM3 (4.0-11.0)
[2016-07-01 05:38] LABS: BICARBONATE 30.2 MEQ/L (21.0-32.0); POTASSIUM 3.9 MEQ/L (3.5-5.1)
[2016-07-01] MEDS: RESP: ALBUTEROL 2.5 MG/IPRATROPIUM 0.5 MG NEB (SCH) NEB ×4 (08:00→20:06)
--- NOTE | 2016-07-01 08:54 | HHI.PR ---
Subjective History of Present Illness sitting up in bed smiling/playing w her Dolls Non verbal occ follow very simple commands not able to communicate or provide info Vitals/Results Vital Signs Vital Signs Date Time Temp Pulse Resp B/P Pulse Ox O2 Delivery O2 Flow Rate FiO2 07/01/16 07:56 98.5 76 18 103/50 97 07/01/16 04:02 98.6 84 20 90/50 95 07/01/16 02:40 80 07/01/16 00:09 97.6 84 20 99/64 96 06/30/16 23:09 18 97 Room Air 06/30/16 21:57 60 18 112/74 94 Nasal Cannula 3 06/30/16 20:22 94 21 06/30/16 19:41 65 18 110/71 99 Nasal Cannula 3 06/30/16 18:30 75 18 119/72 96 Nasal Cannula 3 06/30/16 17:32 72 18 119/62 97 Partial Rebreather 15 06/30/16 15:59 52 12 107/49 90 Non-Rebreather 15 06/30/16 15:00 52 12 101/53 99 Non-Rebreather 06/30/16 14:26 97 75 06/30/16 14:04 12 91 Non-Rebreather 15 06/30/16 14:04 75 12 98/57 85 BiPAP 06/30/16 14:04 83 12 90 Non-Rebreather 15 06/30/16 13:57 97.1 82 12 117/55 71 CBC/BMP: 07/01/16 0454 07/01/16 0454 Lab Results Laboratory Tests Test 06/30/16 06/30/16 06/30/16 06/30/16 14:00 14:15 14:30 20:45 White Blood Count 5.1 TH/MM3 Red Blood Count 3.54 MIL/MM3 Hemoglobin 11.5 GM/DL Hematocrit 35.0 % Mean Corpuscular Volume 98.9 FL Mean Corpuscular Hemoglobin 32.6 PG Mean Corpuscular Hemoglobin 33.0 % Concent Red Cell Distribution Width 14.4 % Platelet Count 192 TH/MM3 Mean Platelet Volume 10.5 FL Neutrophils (%) (Auto) 49.8 % Lymphocytes (%) (Auto) 36.3 % Monocytes (%) (Auto) 5.9 % Eosinophils (%) (Auto) 6.7 % Basophils (%) (Auto) 1.3 % Neutrophils # (Auto) 2.6 TH/MM3 Lymphocytes # (Auto) 1.9 TH/MM3 Monocytes # (Auto) 0.3 TH/MM3 Eosinophils # (Auto) 0.3 TH/MM3 Basophils # (Auto) 0.1 TH/MM3 CBC Comment DIFF FINAL Differential Comment Prothrombin Time 10.8 SEC Prothromb Time International 1.0 RATIO Ratio Activated Partial 24.0 SEC Thromboplast Time Sodium Level 134 MEQ/L Potassium Level 3.3 MEQ/L Chloride Level 98 MEQ/L Carbon Dioxide Level 27.1 MEQ/L Anion Gap 9 MEQ/L Blood Urea Nitrogen 8 MG/DL Creatinine 0.59 MG/DL Estimat Glomerular Filtration 110 ML/MIN Rate Random Glucose 123 MG/DL Calcium Level 8.1 MG/DL Total Bilirubin LESS THAN 0.1 MG/DL Aspartate Amino Transf 28 U/L (AST/SGOT) Alanine Aminotransferase 38 U/L (ALT/SGPT) Alkaline Phosphatase 102 U/L Total Creatine Kinase 91 U/L 117 U/L Troponin I LESS THAN 0.02 0.12 NG/ML NG/ML B-Type Natriuretic Peptide 51 PG/ML Total Protein 6.8 GM/DL Albumin 2.9 GM/DL Lactic Acid Level 2.0 mmol/L Urine Color COLORLESS Urine Turbidity CLEAR Urine pH 7.0 Urine Specific [place] 1.006 Urine Protein NEG mg/dL Urine Glucose (UA) NEG mg/dL Urine Ketones NEG mg/dL Urine Occult Blood NEG Urine Nitrite NEG Urine Bilirubin NEG Urine Urobilinogen LESS THAN 2.0 MG/DL Urine Leukocyte Esterase NEG Urine RBC LESS THAN 1 /hpf Urine WBC LESS THAN 1 /hpf Urine Squamous Epithelial <1 /hpf Cells Urine Mucus FEW /lpf Microscopic Urinalysis Comment CULT NOT INDICATED Test 07/01/16 04:54 White Blood Count 8.9 TH/MM3 Red Blood Count 3.27 MIL/MM3 Hemoglobin 10.7 GM/DL Hematocrit 31.6 % Mean Corpuscular Volume 96.7 FL Mean Corpuscular Hemoglobin 32.9 PG Mean Corpuscular Hemoglobin 34.0 % Concent Red Cell Distribution Width 14.2 % Platelet Count 166 TH/MM3 Mean Platelet Volume 10.5 FL Neutrophils (%) (Auto) 89.9 % Lymphocytes (%) (Auto) 6.5 % Monocytes (%) (Auto) 2.5 % Eosinophils (%) (Auto) 0.7 % Basophils (%) (Auto) 0.4 % Neutrophils # (Auto) 8.0 TH/MM3 Lymphocytes # (Auto) 0.6 TH/MM3 Monocytes # (Auto) 0.2 TH/MM3 Eosinophils # (Auto) 0.1 TH/MM3 Basophils # (Auto) 0.0 TH/MM3 CBC Comment DIFF FINAL Differential Comment Sodium Level 136 MEQ/L Potassium Level 3.9 MEQ/L Chloride Level 99 MEQ/L Carbon Dioxide Level 30.2 MEQ/L Anion Gap 7 MEQ/L Blood Urea Nitrogen 10 MG/DL Creatinine 0.72 MG/DL Estimat Glomerular Filtration 87 ML/MIN Rate Random Glucose 91 MG/DL Calcium Level 8.6 MG/DL Total Creatine Kinase 67 U/L Troponin I 0.07 NG/ML Microbiology Microbiology 06/30/16 Aerobic Blood Culture, Received Pending 06/30/16 Anaerobic Blood Culture, Received Pending 06/30/16 Aerobic Blood Culture, Received Pending 06/30/16 Anaerobic Blood Culture, Received Pending Physical Exam General General Appearance: No Acute Distress, Comfortable Eyes Eye Remarks keeps left eye close, Right pupil appears ok Throat Throat Exam: Oral Mucosa [place] & Moist Throat Remarks poor dentition Pulmonary Resp Exam: Clear Bilaterally, Breath Sounds Equal Cardiology CV Exam: Regular, Normal Sinus Rhythm Gastrointestinal/Abdomen GI Exam: Soft, Non-Tender Integumentary Skin Exam: Warm, Dry Neurologic Neuro Exam: Alert, Awake, Moving All Extremities Assessment/Plan Assessment/Plan Assessment and Plan Problem List: (1) s/p Hypoxemic Respiratory failure, Resolved (2) possible Medication overdose (3) Reactive airway disease (4) History of recent dental procedure (5) Down syndrome/ severe Mental Retardation (6) Hyperlipidemia (7) Elevated trop ? sig ?? NSTEMI Assessment and Plan 46-year-old female with history of Down syndrome, underwent dental procedure today and was [facility]. Patient was found lethargic, almost unresponsive with hypoxia, sats 58%. Patient was given Lasix, Ntg paste , DuoNeb, -Off oxygen. On RA sat 9ater than 92% DuoNeb's 4 times a day and when necessary Cardiac telemetry - 2-D echo [p] -Lasix 40 mg by mouth daily -Trop noted - start ASA - obtain card consult - check lipid profile - I am not sure if pt is candidate for any procedure d/t her severe mental retardation. - I called & poke w PT's mother over the phone d/w findings with her , explained her theoretical need for further diagnostic w/u & explained her practical limitations d/t her mental retardation. Mom verbalized understanding & Requested conservative treatment . R/B were explained to her. We decided not to persue invasive testing or treatment. Hypokalemia Replace potassium History of Down syndrome with explosive disorder, cooperative at this time, not agitated. Patient has 24-hour soiey-egy-uzrle caregiver, she will stay with patient Continue with home medications severe Mental retardation d/t down syndrome Hyperlipidemia Continue with home medications SCDs for DVT prophylaxis Rosanna Allen MD Jul 01, 2016 08:54
[2016-07-01] MEDS: SODIUM CHLORIDE 0.9% FLUSH 5 ML FLUSH FLUSH SCH ×2 (09:00→21:55)
[2016-07-01] MEDS: FERROUS SULFATE 325 MG (65 MG ELEMENTAL IRON) TAB PO SCH ×2 (09:00→22:00)
[2016-07-01] MEDS ORDERED: ASPI325T PO (09:48)
[2016-07-01] MEDS: OXcarbazepine 600 MG TAB PO SCH ×2 (10:11→22:00)
[2016-07-01] MEDS: POTASSIUM CHLORIDE 10 MEQ CONTROLLED RELEASE TAB PO SCH (10:12)
[2016-07-01] MEDS: ARIPiprazole 30 MG TAB PO SCH (10:12)
[2016-07-01] MEDS: CETIRIZINE HCL 10 MG TAB PO SCH (10:12)
[2016-07-01] MEDS: ASPIRIN 325 MG TAB PO SCH (10:12)
[2016-07-01] MEDS: FUROSEMIDE 40 MG TAB PO SCH (10:12)
[2016-07-01] MEDS: ESCITALOPRAM OXALATE 20 MG TAB PO SCH (10:13)
--- NOTE | 2016-07-01 12:03 | MB ---
cc: TONI DUPONT M.D. DATE OF CONSULTATION 07/01/2016 REASON FOR THE CONSULTATION Abnormal troponin levels. HISTORY OF THE PRESENT ILLNESS History is obtained from medical records as the patient is nonverbal and has a history of Down syndrome. She is a 46-year-old white female with a history of Down syndrome, intermittent explosive disorder, pneumonia in 2012, seizure disorder, hyperlipidemia, who was brought to the hospital with respiratory distress. The patient apparently was at the dentist's office yesterday morning where she was given intravenous sedation for dental work. In the early afternoon she was found to be lethargic, minimally responsive with oxygen saturation in the 50's. Chest x-ray in the emergency department apparently showed no acute disease. Troponin levels were checked and found to be slightly abnormal. There is no definite documented history of congenital heart disease. PAST MEDICAL HISTORY As above. CURRENT CARDIAC MEDICATIONS 1. Furosemide 40 mg p.o. daily. 2. Potassium chloride 10 mEq p.o. daily. 3. Aspirin 325 mg p.o. q.d. 4. Pravastatin 20 mg p.o. q.h.s. ALLERGIES No known drug allergies. FAMILY HISTORY Unobtainable. SOCIAL HISTORY The patient apparently has no history of alcohol or tobacco use. REVIEW OF SYSTEMS Currently unobtainable. PHYSICAL EXAMINATION VITAL SIGNS: On physical examination her blood pressure is 103/50 with a pulse of 76, respirations 18. GENERAL: She is a well-developed, well-nourished white female currently in no acute distress and playing with her dolls. HEENT EXAMINATION/NECK: Jugular venous pressure is normal. Carotid pulses are 2+ bilaterally and without bruits. EXAMINATION OF THE CHEST: Clear lung rowe. CARDIAC EXAMINATION: She has a regular rhythm and rate with a grade 2/6 systolic ejection murmur heard at the base of the heart. The S2 heart sound is normal. No gallop is audible. ABDOMINAL EXAMINATION: She has a soft, nontender abdomen. Bowel sounds are present. There is no definite hepatosplenomegaly. EXTREMITIES: Examination of the extremities reveals no clubbing, cyanosis or edema. LABORATORY DATA WBC 0.9, hemoglobin 10.7, platelets 166. Potassium 3.9, BUN 10, creatinine 0.72. CK 117. Troponin 0.12. CHEST X-RAY No acute disease. EKG From today shows a normal sinus rhythm, left atrial abnormality. IMPRESSION Slightly abnormal troponin levels in this 46-year-old white female with a history of Down syndrome, intermittent explosive disorder, hyperlipidemia, seizure disorder. Overall I doubt the slightly elevated troponin level is due to an acute coronary process. There is no definite evidence for acute EKG changes. There is no evidence for congestive heart failure. The patient does have a murmur, probably of aortic valve origin by exam, although exam suggests the aortic stenosis is not severe. Overall she is not a good candidate for aggressive cardiac evaluation. RECOMMENDATIONS 1. Continue daily aspirin and statin therapy. 2. Check a 2-D echo to assess her left ventricular function. MD MAHI Llanes/MAYTE /11:29 AM /11:53 AM IVETT
--- NOTE | 2016-07-01 16:27 | EC ---
Study Study Date:07/01/2016 STUDY CONCLUSIONS SUMMARY - Procedure narrative: Image quality was fair. The study was technically limited due to poor acoustic window availability and poor patient compliance. - Left ventricle: The cavity size was normal. Systolic function was normal. The estimated ejection fraction was in the range of 55% to 60%. Although no diagnostic regional wall motion abnormality was identified, this possibility cannot be completely excluded on the basis of this study. - Pulmonary arteries: PA peak pressure: 45mm Hg (S). - Pericardium, extracardiac: A trivial pericardial effusion was identified. If LV function is below 40, please consider prescribing an ACEI or ARB or document rationale for non-use. PROCEDURE DATA STUDY STATUS: Elective. Procedure: Transthoracic echocardiography. Image quality was fair. The study was technically limited due to poor acoustic window availability and poor patient compliance. Scanning was performed from the parasternal, apical, and subcostal acoustic windows. Study completion: The patient tolerated the procedure well. Transthoracic echocardiography. M-mode, complete 2D, complete spectral Doppler, and color Doppler. Patient status: Inpatient. CARDIAC ANATOMY LEFT VENTRICLE: The cavity size was normal. There was no hypertrophy. Systolic function was normal. The estimated ejection fraction was in the range of 55% to 60%. Although no diagnostic regional wall motion abnormality was identified, this possibility cannot be completely excluded on the basis of this study. AORTIC VALVE: The valve appears to be grossly normal. Trileaflet. Doppler: There was no stenosis. No significant regurgitation. MITRAL VALVE: The valve appears to be grossly normal. Normal thickness leaflets, . Doppler: There was no evidence for stenosis. Trace regurgitation. Mean gradient: 2mm Hg (D). Peak gradient: 8mm Hg (D). LEFT ATRIUM: The atrium was normal in size. ATRIAL SEPTUM: No defect or patent foramen ovale was identified. RIGHT VENTRICLE: The cavity size was normal. Systolic function was normal. PULMONIC VALVE: Not well visualized. Doppler: There was no evidence for stenosis. Trace regurgitation. TRICUSPID VALVE: The valve appears to be grossly normal. Doppler: There was no evidence for stenosis. Trace regurgitation. PERICARDIUM: A trivial pericardial effusion was identified. BASIC MEASUREMENTS ADULT Normal Left ventricle LV internal dimension, ED, chordal level, *39.8 mm 43-52 PLAX LV posterior wall thickness, ED 5.43 mm IVS/LVPW ratio, ED *1.54 <1.3 Ventricular septum Septal thickness, ED 8.38 mm Left atrium Anterior-posterior dimension 23 mm Right ventricle RV internal dimension, ED, PLAX 19.4 mm 19-38 DOPPLER MEASUREMENTS ADULT Normal Main pulmonary artery Pressure, S *45 mm Hg =30 Aortic valve VTI, S 51.9 cm Mitral valve Peak E-wave velocity 121 cm/s Peak A-wave velocity 73.4 cm/s Mean velocity, D 61.1 cm/s Mean gradient, D 2 mm Hg Peak gradient, D 8 mm Hg Peak E/A ratio 1.6 Tricuspid valve Regurgitant peak velocity 238 cm/s Peak RV-RA gradient, S 23 mm Hg Maximal regurgitant velocity 238 cm/s Systemic veins Estimated CVP 10 mm Hg Right ventricle RV pressure, S *45 mm Hg <30 LEGEND: Mean values are shown as u=mean value. Asterisk (*) herring values outside specified normal range. Prepared and signed by Washington Badillo [id number]
--- NOTE | 2016-07-01 20:58 | EKG ---
Date Performed: 07/01/2016 Time Performed: 04:07:56 PTAGE: 46 years EKG: Sinus rhythm POSSIBLE LEFT ATRIAL ENLARGEMENT BORDERLINE ECG PREVIOUS TRACING : 06/30/2016 21.13 DOCTOR: Brandon Gentile Interpretating Date/Time 07/01/2016 20:55:40
--- NOTE | 2016-07-01 21:06 | EKG ---
Date Performed: 06/30/2016 Time Performed: 21:13:04 PTAGE: 46 years EKG: Sinus rhythm POSSIBLE LEFT ATRIAL ENLARGEMENT BORDERLINE ECG PREVIOUS TRACING : 06/30/2016 16.15 DOCTOR: Brandon Gentile Interpretating Date/Time 07/01/2016 21:02:24
--- NOTE | 2016-07-01 21:15 | EKG ---
Date Performed: 06/30/2016 Time Performed: 16:15:37 PTAGE: 46 years EKG: SINUS BRADYCARDIA WITH OCCASIONAL VENTRICULAR PREMATURE COMPLEXES BORDERLINE ECG PREVIOUS TRACING : 12/25/2012 09.25 DOCTOR: Brandon Gentile Interpretating Date/Time 07/01/2016 21:07:05
[2016-07-01] MEDS: PRAVASTATIN SOD 20 MG TAB PO SCH (22:00)
[2016-07-02 04:42] VITALS: BP 161/74; PULSE 53; RESP 19; TEMP 97.2; O2SAT 94
--- NOTE | 2016-07-02 07:20 | PD.CARD.PN ---
Subjective Subjective Remarks Awake. Nonverbal. Appears comfortable. Objective Medications Item Value Date Time Furosemide 40 mg 07/01/16 0900 (Lasix) DAILY/PO 07/01/16 1012 Aspirin 325 mg 07/01/16 0900 (Aspirin) DAILY/PO 07/01/16 1012 Potassium Chloride 10 meq 07/01/16 0900 (KCl) DAILY/PO 07/01/16 1012 Pravastatin Sodium 20 mg 06/30/16 2100 (Pravachol) HS/PO 07/01/16 2200 Vital Signs / I&O Vital Signs Date Time Temp Pulse Resp B/P Pulse Ox O2 Delivery O2 Flow Rate FiO2 07/02/16 04:42 97.2 53 19 161/74 94 07/01/16 21:28 96.9 65 19 110/60 95 07/01/16 15:46 98.1 64 18 103/55 07/01/16 11:32 98.0 63 18 117/63 97 07/01/16 07:56 98.5 76 18 103/50 97 I/O 07/01/16 07/01/16 07/01/16 07/02/16 07/02/16 07/02/16 07:00 15:00 23:00 07:00 15:00 23:00 Intake Total 120 ml Balance 120 ml Intake Oral 120 ml # Voids 1 2 Physical Exam GENERAL: Well developed, well nourished. No acute distress. HEENT: Jugular venous pressure is normal. CHEST: Lungs clear to auscultation bilaterally. Unlabored respiratory effort. CARDIAC: Regular rate and rhythm without S3, S4. II/ MATEO base. Normal S2. ABDOMEN: Soft, nontender, no hepatosplenomegaly. Bowel sounds present. EXTREMITIES: No clubbing, cyanosis, or edema. Assessment and Plan Problem List: (1) Elevated troponin Assessment and Plan: Cardiac status stable overnight. Echo reportedly unremarkable. Etiology of slight troponin elevation not entirely clear. In light of her comorbid conditions, recommend conservative cardiac management. REC OK to discharge from a cardiac standpoint Code Status full code Ivan Velazquez MD Jul 02, 2016 07:20
[2016-07-02 07:46] VITALS: BP 130/60; PULSE 64; RESP 18; TEMP 98.5; O2SAT 97
[2016-07-02] MEDS: RESP: ALBUTEROL 2.5 MG/IPRATROPIUM 0.5 MG NEB (SCH) NEB ×2 (08:43→11:50)
[2016-07-02 08:46] VITALS: O2SAT 97
[2016-07-02] MEDS: FERROUS SULFATE 325 MG (65 MG ELEMENTAL IRON) TAB PO SCH (09:00)
[2016-07-02] MEDS: ASPIRIN 325 MG TAB PO SCH (09:42)
[2016-07-02] MEDS: ARIPiprazole 30 MG TAB PO SCH (09:42)
[2016-07-02] MEDS: SODIUM CHLORIDE 0.9% FLUSH 5 ML FLUSH FLUSH SCH (09:42)
[2016-07-02] MEDS: CETIRIZINE HCL 10 MG TAB PO SCH (09:42)
[2016-07-02] MEDS: FUROSEMIDE 40 MG TAB PO SCH (09:43)
[2016-07-02] MEDS: POTASSIUM CHLORIDE 10 MEQ CONTROLLED RELEASE TAB PO SCH (09:43)
[2016-07-02] MEDS: OXcarbazepine 600 MG TAB PO SCH (09:43)
[2016-07-02] MEDS: ESCITALOPRAM OXALATE 20 MG TAB PO SCH (09:43)
[2016-07-02 09:44] LABS: HEMATOCRIT 34.1 % (35.0-46.0); MEAN CORPUSCULAR HEMOGLOBIN 33.2 PG (27.0-34.0); MEAN CORPUSCULAR HGB CONC 34.3 % (32.0-36.0); PLATELET COUNT 168 TH/MM3 (150-450); RED BLOOD COUNT 3.51 MIL/MM3 (4.00-5.30); RED CELL DISTRIBUTION WIDTH 14.4 % (11.6-17.2); REVIEW FLAG FINAL; WHITE BLOOD COUNT 4.3 TH/MM3 (4.0-11.0)
--- NOTE | 2016-07-02 10:28 | HHI.PR ---
Subjective History of Present Illness PT's d/c was with held yesterday d/t +ve blood c/s resting comfortably in bed smiling/playing w her Dolls Non verbal occ follow very simple commands had breakfast this am not able to communicate or provide info health care technician at bedside , per her pt is back to her baseline Vitals/Results Intake & Output 07/01/16 07/01/16 07/02/16 15:00 23:00 07:00 Intake Total 120 ml Balance 120 ml Intake Oral 120 ml # Voids 2 Vital Signs Vital Signs Date Time Temp Pulse Resp B/P Pulse Ox O2 Delivery O2 Flow Rate FiO2 07/02/16 08:46 97 07/02/16 07:46 98.5 64 18 130/60 97 07/02/16 04:42 97.2 53 19 161/74 94 07/01/16 21:28 96.9 65 19 110/60 95 07/01/16 15:46 98.1 64 18 103/55 07/01/16 11:32 98.0 63 18 117/63 97 CBC/BMP: 07/02/16 0841 07/01/16 0454 Lab Results Laboratory Tests Test 07/02/16 08:41 White Blood Count 4.3 TH/MM3 Red Blood Count 3.51 MIL/MM3 Hemoglobin 11.7 GM/DL Hematocrit 34.1 % Mean Corpuscular Volume 97.0 FL Mean Corpuscular Hemoglobin 33.2 PG Mean Corpuscular Hemoglobin 34.3 % Concent Red Cell Distribution Width 14.4 % Platelet Count 168 TH/MM3 Mean Platelet Volume 10.5 FL Physical Exam General General Appearance: No Acute Distress, Comfortable Eyes Eye Remarks keeps left eye close, Right pupil appears ok Throat Throat Exam: Oral Mucosa Amber & Moist Throat Remarks poor dentition Pulmonary Resp Exam: Clear Bilaterally, Breath Sounds Equal Cardiology CV Exam: Regular, Normal Sinus Rhythm Gastrointestinal/Abdomen GI Exam: Soft, Non-Tender Integumentary Skin Exam: Warm, Dry Neurologic Neuro Exam: Alert, Awake, Moving All Extremities Assessment/Plan Assessment/Plan Assessment and Plan Problem List: (1) s/p Hypoxemic Respiratory failure, Resolved (2) possible Medication overdose (3) Reactive airway disease (4) History of recent dental procedure (5) Down syndrome/ severe Mental Retardation (6) Hyperlipidemia (7) Elevated trop ? sig ?? NSTEMI Assessment and Plan 46-year-old female with history of Down syndrome, underwent dental procedure today and was discharged back to [facility]. Patient was found lethargic, almost unresponsive with hypoxia, sats 58%. Patient was given Lasix, Ntg paste , DuoNeb, -Off oxygen. On RA sat 9ater than 92% DuoNeb's 4 times a day and when necessary Cardiac telemetry - 2-D echo NL LVF EF 55 to 60% No wall motion abn No sig valvular disease -Lasix 40 mg by mouth daily -Trop noted - start ASA - card consult appreciated No cardiac intervention rec - GPC in blood likely a contaminant -I called [facility], they are working on ID of blood c/s -left my cell number - Hypokalemia Replace potassium History of Down syndrome with explosive disorder, cooperative at this time, not agitated. Patient has 24-hour [id number] caregiver, she will stay with patient Continue with home medications severe Mental retardation d/t down syndrome Hyperlipidemia Continue with home medications SCDs for DVT prophylaxis ADDENDUM 2 diff types of CONS in blood c/s , most likely contaminant NO further testing clinically no s/s of infection d/c back to [facility] Rosanna Allen MD Jul 02, 2016 10:28
[2016-07-02 11:33] VITALS: BP 118/60; PULSE 63; RESP 18; TEMP 99.1; O2SAT 95
== END 2016-07-02 12:45 | disposition home or self-care (01) ==
LOC: NEPA 13:53 → NEDA 16:10 → NEDH 21:43 → NEPHCDU 23:41
PROVIDERS: ADMIT Specialist; ATTEND Specialist
DX: T50.901A Poisoning by unspecified drugs, medicaments and biological substances, accidental (unintentional), initial encounter (principal); J96.01 Acute respiratory failure with hypoxia; J45.20 Mild intermittent asthma, uncomplicated; Q90.9 Down syndrome, unspecified; G40.909 Epilepsy, unspecified, not intractable, without status epilepticus; E78.5 Hyperlipidemia, unspecified; D64.9 Anemia, unspecified; F63.81 Intermittent explosive disorder; Z79.899 Other long term (current) drug therapy; E87.6 Hypokalemia; D72.829 Elevated white blood cell count, unspecified; H54.42 Blindness, left eye, normal vision right eye; R13.10 Dysphagia, unspecified; K59.00 Constipation, unspecified; R01.1 Cardiac murmur, unspecified; F72 Severe intellectual disabilities
CPT/HCPCS: 71010; 80048; 80053; 81001; 82550; 83605; 83880; 84484; 85025; 85027; 85610; 85730; 86403; 87040; 87205; 93005; 93306; 94002; 94640; 94664; 99285; G0378

== ENCOUNTER 2016-07-21 11:50 | Emergency (ER) | payer OTHER ==
[~2016-07-21] VITALS: Ht 154.9 cm; Wt 70.0 kg
[~2016-07-21 11:50] MED LIST changes: +ASPI325T PO; -HALC0.25 PO; -SODI1TAB PO
[2016-07-21 11:53] VITALS: BP 115/81; PULSE 78; RESP 20; TEMP 98.4; O2SAT 94
--- NOTE | 2016-07-21 15:17 | PD ---
HPI Chief Complaint: Cold / Flu Symptoms Time Seen by Provider: 15:15 Travel History International Travel<30 days: No Contact w/Intl Traveler<30days: No Traveled to known affect area: No History of Present Illness HPI 46 -year-old female presents to the emergency department for evaluation of cough and runny nose that started this morning. Patient has a history severe mental retardation, Down syndrome. She is nonverbal. According to caregiver at bedside, she lives in a assisted. She started with coughing and runny nose this morning. No fevers. No other complaints. According to chart, she does have a history of asthma. PFSH Past Medical History Anemia: Yes (ANEMIA; HYPERLIPIDEMIA) Arthritis: No Asthma: No Autoimmune Disease: No Blood Disorders: Yes (ANEMIA) Anxiety: Yes Heart Rhythm Problems: No Cancer: No Cardiovascular Problems: Yes High Cholesterol: Yes Chemotherapy: No Chest Pain: No Congestive Heart Failure: No COPD: No Cerebrovascular Accident: No Developmental Delay: Yes (DOWN SYNDROME) Diabetes: No Diminished Hearing: No Endocrine: No Gastrointestinal Disorders: No GERD: No Glaucoma: No Genitourinary: No Headaches: No Hepatitis: No Hiatal Hernia: No Hypertension: No Immune Disorder: No Kidney Stones: No Musculoskeletal: No Neurologic: No Psychiatric: Yes (intermittent explosive d/o) Respiratory: Yes (resp. distress after IV sedation at dentist) Myocardial Infarction: No Pneumonia: Yes Radiation Therapy: No Renal Failure: No Seizures: Yes Sleep Apnea: No Thyroid Disease: No Ulcer: No Past Surgical History Abdominal Surgery: Yes ("GASTROINTESTINAL SURGERY UNSURE WHAT EXACTLY") AICD: No Joint Replacement: No Pacemaker: No Other Surgery: No Social History Alcohol Use: No Tobacco Use: No Substance Use: No Allergies-Medications (Allergen,Severity, Reaction): Coded Allergies: No Known Allergies (Unverified , 07/21/16) Reported Meds & Prescriptions Reported Meds & Active Scripts Active Flonase Allergy Relief Nasal [place] (Fluticasone Nasal [place]) 50 Mcg/Act [place] 50 Mcg EACH NARE BID Robitussin 12 Hour Cough Liq (Dextromethorphan Polistirex Liq) 30 Mg/5 Ml Gaye 5 Ml PO Q12H PRN 5 Days Ventolin Hfa 18 GM Inh (Albuterol Sulfate) 90 Mcg/Act Aer 2 Puff INH Q4H PRN Aspirin 325 Mg Tab 325 Mg PO DAILY Reported Solbar Pf Liquid/Gel Spf3 (Sunscreens) 1 Gel Gel 1 Applic TOP DIRECTED PRN Probiotic Daily (Probiotic Product) 1 Cap Cap 1 Cap PO DAILY Niacin Flush Free (Inositol Niacinate) 500 Mg Cap 500 Mg PO HS Calcium (Calcium Carbonate) 600 Mg Tab 1,200 Mg PO BID Off Familycare Unscented (Diethyltoluamide (Deet)) 7 % Spr 1 Applic TOP DIRECTED PRN Bactroban (Mupirocin) 2 % Oin 1 Applic TOPICAL BID PRN Ibuprofen 600 Mg Tab 600 Mg PO BID PRN Lotrisone Topical (Betamethasone/Clotrimazole) 1-0.05% Cream 1 Applic TOPICAL BID Apply to affected area(s) on arms,legs,perineal area for rash,mild burning or stinging Guaifenesin 200 Mg Tab 200 Mg PO Q4HR PRN Anti-Diarrheal (Loperamide HCl) 2 Mg Cap 2 Mg PO DIRECTED PRN One capsule after each loose stool. Not to exceed 4 capsules per day. Tylenol (Acetaminophen) 325 Mg Tab 650 Mg PO Q4H PRN Not to exceed 3,000mg/24hr Zeasorb-AF Topical Powder (Miconazole Topical Powder) 2 % Pow 1 Applic TOPICAL DAILY Apply to areas on inner thighs Thick-It Original (Starch-Maltodextrin (Thickenin) 1 Pow Pow DIRECTED [place] Thick Liquids Thera-M (Multiple Vitamins W/ Minerals) 1 Tab 1 Tab PO DAILY Zocor (Simvastatin) 10 Mg Tab 10 Mg PO HS K-Tab (Potassium Chloride) 10 Meq Tab 10 Meq PO DAILY Trileptal (Oxcarbazepine) 600 Mg Tab 600 Mg PO BID Depo-Provera Inj (Medroxyprogesterone Inj) 150 Mg/Ml Inj 150 Mg IM Q90D Vitamin D3 (Cholecalciferol) 5,000 Unit Tab 5,000 Units PO DAILY @ 1700 Lasix (Furosemide) 40 Mg Tab 40 Mg PO DAILY Flexitol Heel [place] (Podiatric Products) 1 Oin Oin 1 Applic TOP BID Apply to both heels Ferrous Sulfate 325 Mg Tab 325 Mg PO BID Lexapro (Escitalopram Oxalate) 20 Mg Tab 20 Mg PO DAILY Valium (Diazepam) 5 Mg Tab 5 Mg PO TID [place] Pro-Health (Cetylpyridinium Chloride (Mout) 0.07 % Liq 1 Applic PO BID Moisten toothette swab with mouthwash for oral hygiene Zyrtec Allergy (Cetirizine HCl) 10 Mg Cap 10 Mg PO DAILY Cetaphil Moisturizing (Emollient) 1 Lot Lot 1 Applic TOPICAL DAILY APPLY FROM NECK TO TOES Abilify (Aripiprazole) 30 Mg Tab 30 Mg PO DAILY Review of Systems Except as stated in HPI: all other systems reviewed are Neg Physical Exam Narrative GENERAL: Well-developed well-nourished female patient, afebrile. SKIN: Warm and dry. HEAD: Normocephalic. Atraumatic. EYES: No scleral icterus. No injection or drainage. NECK: Supple, trachea midline. No JVD or lymphadenopathy. CARDIOVASCULAR: Regular rate and rhythm without murmurs, gallops, or rubs. RESPIRATORY: Breath sounds equal bilaterally. No accessory muscle use. Lungs sounds are clear to auscultation. GASTROINTESTINAL: Abdomen soft, non-tender, nondistended. MUSCULOSKELETAL: No cyanosis, or edema. BACK: Nontender without obvious deformity. No CVA tenderness. Data Data Last Documented VS Vital Signs Date Time Temp Pulse Resp B/P Pulse Ox O2 Delivery O2 Flow Rate FiO2 07/21/16 15:56 97 18 114/74 98 Room Air 07/21/16 11:53 98.4 Orders Influenzae A/B Antigen (07/21/16 15:14) Chest, Single Ap (07/21/16 ) MDM Medical Decision Making Medical Screen Exam Complete: Yes Emergency Medical Condition: Yes Medical Record Reviewed: Yes Differential Diagnosis Pneumonia versus bronchitis versus URI versus asthma exacerbation Narrative Course 46 year old female presents to the emergency department for evaluation of cough and runny nose that started this morning. Patient appears well on exam. Influenza and chest x-ray are ordered and pending. Workup is initiated in triage. Patient will be moved to medical pod for further evaluation and disposition. Scripts Fluticasone Nasal [place] (Flonase Allergy Relief Nasal [place])50 Mcg/Act Spray50 Mcg EACH NARE BID #1 BOTTLE Ref 0 Prov:Janneth Toledo DO 07/21/16 Dextromethorphan Polistirex Liq (Robitussin 12 Hour Cough Liq)30 Mg/5 Ml Sus5 Ml PO Q12H PRN (COUGH) 5 Days Ref 0 Prov:Janneth Toledo DO 07/21/16 Albuterol 18 GM Inh (Ventolin Hfa 18 GM Inh)90 Mcg/Act Aer2 Puff INH Q4H PRN ( SHORTNESS OF BREATH) #1 INHALER Ref 0 Prov:Janneth Toledo DO 07/21/16 Lupis Mon Jul 21, 2016 15:17
[2016-07-21 15:56] VITALS: BP 114/74; PULSE 97; RESP 18; O2SAT 98
--- NOTE | 2016-07-21 16:04 | RADRPT ---
EXAM DATE/TIME: 07/21/2016 15:49 [facility] COMPARISON: CHEST SINGLE AP, June 30, 2016, 13:56. INDICATIONS : Cough. MEDICAL HISTORY : None. SURGICAL HISTORY : None. ENCOUNTER: Initial ACUITY: 1 day PAIN SCORE: 0/10 LOCATION: Bilateral chest FINDINGS: A single view of the chest demonstrates the lungs to be symmetrically aerated without evidence of mas s, infiltrate or effusion. The cardiomediastinal contours are unremarkable. Scoliosis otherwise neg ative. CONCLUSION: No acute disease. Delonte Ibarra MD FACR on July 21, 2016 at 16:01 Board Certified Radiologist. This report was verified electronically.
[2016-07-21] MEDS ORDERED: DEXT1SUS PO (17:45)
[2016-07-21] MEDS ORDERED: VENTAER INH (17:45)
[2016-07-21] MEDS ORDERED: FLUT1SPR5 EACH NARE (17:45)
--- NOTE | 2016-07-21 17:45 | PD ---
HPI Chief Complaint: Cold / Flu Symptoms Time Seen by Provider: 17:29 Travel History International Travel<30 days: No Contact w/Intl Traveler<30days: No Traveled to known affect area: No History of Present Illness HPI 46yo F with Down Syndrome, asthma presents from [facility] with c/o cough and nasal congestion for 1 day. Denies any fever or any other complaints. Pt is at baseline mental status and has a one to one aid. PFSH Past Medical History Anemia: Yes (ANEMIA; HYPERLIPIDEMIA) Arthritis: No Asthma: No Autoimmune Disease: No Blood Disorders: Yes (ANEMIA) Anxiety: Yes Heart Rhythm Problems: No Cancer: No Cardiovascular Problems: Yes High Cholesterol: Yes Chemotherapy: No Chest Pain: No Congestive Heart Failure: No COPD: No Cerebrovascular Accident: No Developmental Delay: Yes (DOWN SYNDROME) Diabetes: No Diminished Hearing: No Endocrine: No Gastrointestinal Disorders: No GERD: No Glaucoma: No Genitourinary: No Headaches: No Hepatitis: No Hiatal Hernia: No Hypertension: No Immune Disorder: No Kidney Stones: No Musculoskeletal: No Neurologic: No Psychiatric: Yes (intermittent explosive d/o) Respiratory: Yes (resp. distress after IV sedation at dentist) Myocardial Infarction: No Pneumonia: Yes Radiation Therapy: No Renal Failure: No Seizures: Yes Sleep Apnea: No Thyroid Disease: No Ulcer: No ?: Not Past Surgical History Abdominal Surgery: Yes ("GASTROINTESTINAL SURGERY UNSURE WHAT EXACTLY") AICD: No Joint Replacement: No Pacemaker: No Other Surgery: No Social History Alcohol Use: No Tobacco Use: No Substance Use: No Allergies-Medications (Allergen,Severity, Reaction): Coded Allergies: No Known Allergies (Unverified , 07/21/16) Reported Meds & Prescriptions Reported Meds & Active Scripts Active Aspirin 325 Mg Tab 325 Mg PO DAILY Reported Solbar Pf Liquid/Gel Spf3 (Sunscreens) 1 Gel Gel 1 Applic TOP DIRECTED PRN Probiotic Daily (Probiotic Product) 1 Cap Cap 1 Cap PO DAILY Niacin Flush Free (Inositol Niacinate) 500 Mg Cap 500 Mg PO HS Calcium (Calcium Carbonate) 600 Mg Tab 1,200 Mg PO BID Off Familycare Unscented (Diethyltoluamide (Deet)) 7 % Spr 1 Applic TOP DIRECTED PRN Bactroban (Mupirocin) 2 % Oin 1 Applic TOPICAL BID PRN Ibuprofen 600 Mg Tab 600 Mg PO BID PRN Lotrisone Topical (Betamethasone/Clotrimazole) 1-0.05% Cream 1 Applic TOPICAL BID Apply to affected area(s) on arms,legs,perineal area for rash,mild burning or stinging Guaifenesin 200 Mg Tab 200 Mg PO Q4HR PRN Anti-Diarrheal (Loperamide HCl) 2 Mg Cap 2 Mg PO DIRECTED PRN One capsule after each loose stool. Not to exceed 4 capsules per day. Tylenol (Acetaminophen) 325 Mg Tab 650 Mg PO Q4H PRN Not to exceed 3,000mg/24hr Zeasorb-AF Topical Powder (Miconazole Topical Powder) 2 % Pow 1 Applic TOPICAL DAILY Apply to areas on inner thighs Thick-It Original (Starch-Maltodextrin (Thickenin) 1 Pow Pow DIRECTED [place] Thick Liquids Thera-M (Multiple Vitamins W/ Minerals) 1 Tab 1 Tab PO DAILY Zocor (Simvastatin) 10 Mg Tab 10 Mg PO HS K-Tab (Potassium Chloride) 10 Meq Tab 10 Meq PO DAILY Trileptal (Oxcarbazepine) 600 Mg Tab 600 Mg PO BID Depo-Provera Inj (Medroxyprogesterone Inj) 150 Mg/Ml Inj 150 Mg IM Q90D Vitamin D3 (Cholecalciferol) 5,000 Unit Tab 5,000 Units PO DAILY @ 1700 Lasix (Furosemide) 40 Mg Tab 40 Mg PO DAILY Flexitol Heel [place] (Podiatric Products) 1 Oin Oin 1 Applic TOP BID Apply to both heels Ferrous Sulfate 325 Mg Tab 325 Mg PO BID Lexapro (Escitalopram Oxalate) 20 Mg Tab 20 Mg PO DAILY Valium (Diazepam) 5 Mg Tab 5 Mg PO TID [facility] (Cetylpyridinium Chloride (Mout) 0.07 % Liq 1 Applic PO BID Moisten toothette swab with mouthwash for oral hygiene Zyrtec Allergy (Cetirizine HCl) 10 Mg Cap 10 Mg PO DAILY Cetaphil Moisturizing (Emollient) 1 Lot Lot 1 Applic TOPICAL DAILY APPLY FROM NECK TO TOES Abilify (Aripiprazole) 30 Mg Tab 30 Mg PO DAILY Review of Systems Except as stated in HPI: all other systems reviewed are Neg Physical Exam Narrative GENERAL: 46yo F not in distress. SKIN: Warm and dry. HEAD: Atraumatic. Normocephalic. EYES: Pupils equal and round. No scleral icterus. No injection or drainage. ENT: +Increased nasal turbinate edema. Throat: Clear. NECK: Trachea midline. No JVD. CARDIOVASCULAR: Regular rate and rhythm. No murmur appreciated. RESPIRATORY: No accessory muscle use. Clear to auscultation. Breath sounds equal bilaterally. GASTROINTESTINAL: Abdomen soft, non-tender, nondistended. Hepatic and splenic margins not palpable. MUSCULOSKELETAL: No obvious deformities. No clubbing. No cyanosis. No edema. NEUROLOGICAL: Awake and alert. Pt is at baseline mental status. Nonverbal. Not following commands. Data Data Last Documented VS Vital Signs Date Time Temp Pulse Resp B/P Pulse Ox O2 Delivery O2 Flow Rate FiO2 07/21/16 15:56 97 18 114/74 98 Room Air 07/21/16 11:53 98.4 Orders Influenzae A/B Antigen (07/21/16 15:14) Chest, Single Ap (07/21/16 ) MDM Medical Decision Making Medical Screen Exam Complete: Yes Emergency Medical Condition: Yes Interpretation(s) Last Impressions Chest X-Ray 07/21/16 0000 Signed Impressions: Service Date/Time: Thursday, July 21, 2016 15:49 - CONCLUSION: No acute disease. Delonte Ibarra MD FACR Differential Diagnosis URI vs. asthma exacerbation vs. bronchitis Narrative Course 46yo F here with URI like symptoms. Pt is not tachypneic and saturating at 98% on room air. No wheezing on exam and does not take any medications for asthma at home. CXR showed no acute disease. VS stable. Will discharge with flonase , ventolin PRN and robitussin. Return precautions given. Diagnosis Primary Impression: URI (upper respiratory infection) Qualified Code: J06.9 - Upper respiratory tract infection, unspecified type Patient Instructions: General Instructions Departure Forms: Tests/Procedures Additional Instructions: Please return to the ED if she has any fever, worsening breathing or any other concerning symptoms. Please follow up with PMD in 3-7 days. Med/Other Pt SpecificInfo: Prescription(s) given Scripts Fluticasone Nasal [place] (Flonase Allergy Relief Nasal [place])50 Mcg/Act Spray50 Mcg EACH NARE BID #1 BOTTLE Ref 0 Prov:Janneth Toledo DO 07/21/16 Dextromethorphan Polistirex Liq (Robitussin 12 Hour Cough Liq)30 Mg/5 Ml Sus5 Ml PO Q12H PRN (COUGH) 5 Days Ref 0 Prov:Janneth Toledo DO 07/21/16 Albuterol 18 GM Inh (Ventolin Hfa 18 GM Inh)90 Mcg/Act Aer2 Puff INH Q4H PRN ( SHORTNESS OF BREATH) #1 INHALER Ref 0 Prov:Janneth Toledo DO 07/21/16 Disposition: 01 DISCHARGE HOME Condition: Stable Janneth Toledo DO Jul 21, 2016 17:45
== END 2016-07-21 18:24 | disposition home or self-care (01) ==
LOC: NEPB 11:50
DX: J06.9 Acute upper respiratory infection, unspecified (principal); D64.9 Anemia, unspecified; E78.00 Pure hypercholesterolemia, unspecified; E78.5 Hyperlipidemia, unspecified; Q90.9 Down syndrome, unspecified; F72 Severe intellectual disabilities
CPT/HCPCS: 71010; 87804; 99283

== ENCOUNTER → 2016-09-28 | Outpatient (CLI) | payer OTHER ==
[~2016-09-28] MED LIST changes: +CEPH500C PO; +CETACRE5; +DEXT1SUS PO; +FLUT1SPR5 EACH NARE; +PRED10PA PO; +VENTAER INH
--- NOTE | 2016-09-28 12:03 | RADRPT ---
EXAM DATE/TIME: 09/28/2016 00:00 CORRECTION Corrected on: September 29, 2016; report was replaced [facility] COMPARISON: BA SWALLOW W/SPEECH PATHOLOGY, February 06, 2013, 0:00. INDICATIONS : Dysphagia. FLUORO TIME: 2.0 minutes IMAGE COUNT: 0 CONTRAST: Dose as prescribed by speech pathologist. MEDICAL HISTORY : None. SURGICAL HISTORY : None. ENCOUNTER: Initial ACUITY: 1 month PAIN SCORE: 0/10 LOCATION: Esophagus. FINDINGS: A modified barium swallow was performed with speech pathology. Patient was given a variety of liquids , semisolid, and solid to swallow. There is some aspiration seen swallowing of liquids. This is delayed and caused from Elan spell int o the larynx from the hypopharynx. There is normal swallowing mechanics with thicker consistency. For a full detailed report, see report by the speech pathologist. CONCLUSION: There is some aspiration seen with liquids. Julito Suh MD on September 28, 2016 at 12:01 Board Certified Radiologist. This report was verified electronically. Julito Suh MD on September 29, 2016 at 9:41 Board Certified Radiologist. This report was verified electronically.
== END ==
LOC: HRAD 10:13
PROVIDERS: ATTEND Family Medicine
DX: R13.10 Dysphagia, unspecified (principal); F72 Severe intellectual disabilities
CPT/HCPCS: 74230; 92611; G8996; G8997; G8998

== ENCOUNTER 2016-10-15 08:47 | Emergency (ER) | payer OTHER ==
[~2016-10-15] VITALS: Ht 154.9 cm; Wt 70.0 kg
[~2016-10-15 08:47] MED LIST changes: -CEPH500C PO; -CETACRE5; -PRED10PA PO
[2016-10-15 08:49] VITALS: BP 134/68; PULSE 54; RESP 15; TEMP 97.6; O2SAT 100
[2016-10-15 09:05] VITALS: BP 133/60; PULSE 56; RESP 18; O2SAT 98
[2016-10-15] MEDS ORDERED: RESP: ALBUTEROL 2.5 MG/IPRATROPIUM 0.5 MG NEB (SCH) NEB ONE (09:30)
--- NOTE | 2016-10-15 09:49 | PD ---
HPI Chief Complaint: Respiratory Symptoms Time Seen by Provider: 09:17 Travel History International Travel<30 days: No Contact w/Intl Traveler<30days: No Traveled to known affect area: No History of Present Illness HPI This is a 46-year-old female with history of Down syndrome, asthma, reactive airway disease, presents today with complaints of wheezing. The patient ran out of her albuterol and has had wheezing for the last 2 days. Caregiver also states that she got into some crackers and had a choking episode last night. They sent her here to be checked out. They're also requesting I write a prescription for an albuterol MDI with spacer and large facemask. PFSH Past Medical History Anemia: Yes (ANEMIA; HYPERLIPIDEMIA) Arthritis: No Asthma: No Autoimmune Disease: No Blood Disorders: Yes (ANEMIA) Anxiety: Yes Heart Rhythm Problems: No Cancer: No Cardiovascular Problems: Yes High Cholesterol: Yes Chemotherapy: No Chest Pain: No Congestive Heart Failure: No COPD: No Cerebrovascular Accident: No Developmental Delay: Yes (DOWN SYNDROME) Diabetes: No Diminished Hearing: No Endocrine: No Gastrointestinal Disorders: No GERD: No Glaucoma: No Genitourinary: No Headaches: No Hepatitis: No Hiatal Hernia: No Hypertension: No Immune Disorder: No Kidney Stones: No Musculoskeletal: No Neurologic: No Psychiatric: Yes (intermittent explosive d/o) Respiratory: Yes (resp. distress after IV sedation at dentist) Myocardial Infarction: No Pneumonia: Yes Radiation Therapy: No Renal Failure: No Seizures: Yes Sleep Apnea: No Thyroid Disease: No Ulcer: No Tetanus Vaccination: < 5 Years Influenza Vaccination: Yes ?: Not Past Surgical History Abdominal Surgery: Yes ("GASTROINTESTINAL SURGERY UNSURE WHAT EXACTLY") AICD: No Joint Replacement: No Pacemaker: No Other Surgery: No Social History Alcohol Use: No Tobacco Use: No Substance Use: No Allergies-Medications (Allergen,Severity, Reaction): Coded Allergies: No Known Allergies (Unverified , 07/21/16) Reported Meds & Prescriptions Reported Meds & Active Scripts Active Ventolin Hfa 18 GM Inh (Albuterol Sulfate) 90 Mcg/Act Aer 2 Puff INH Q6H PRN Flonase Nasal [place] (Fluticasone Nasal [place]) 50 Mcg/Act [place] 50 Mcg EACH NARE BID Ventolin Hfa 18 GM Inh (Albuterol Sulfate) 90 Mcg/Act Aer 2 Puff INH Q4H PRN Aspirin 325 Mg Tab 325 Mg PO DAILY Reported Cetaphil (Emollient) 1 Cre Cre DAILY Solbar Pf Liquid/Gel Spf3 (Sunscreens) 1 Gel Gel 1 Applic TOP DIRECTED PRN Probiotic Daily (Probiotic Product) 1 Cap Cap 1 Cap PO DAILY Niacin Flush Free (Inositol Niacinate) 500 Mg Cap 500 Mg PO HS Calcium (Calcium Carbonate) 600 Mg Tab 1,200 Mg PO BID Bactroban (Mupirocin) 2 % Oin 1 Applic TOPICAL BID PRN Ibuprofen 600 Mg Tab 600 Mg PO BID PRN Lotrisone Topical (Betamethasone/Clotrimazole) 1-0.05% Cream 1 Applic TOPICAL BID Apply to affected area(s) on arms,legs,perineal area for rash,mild burning or stinging Guaifenesin 200 Mg Tab 200 Mg PO Q4HR PRN Anti-Diarrheal (Loperamide HCl) 2 Mg Cap 2 Mg PO DIRECTED PRN One capsule after each loose stool. Not to exceed 4 capsules per day. Tylenol (Acetaminophen) 325 Mg Tab 650 Mg PO Q4H PRN Not to exceed 3,000mg/24hr Zeasorb-AF Topical Powder (Miconazole Topical Powder) 2 % Pow 1 Applic TOPICAL DAILY Apply to areas on inner thighs Thick-It Original (Starch-Maltodextrin (Thickenin) 1 Pow Pow DIRECTED [place] Thick Liquids Thera-M (Multiple Vitamins W/ Minerals) 1 Tab 1 Tab PO DAILY Zocor (Simvastatin) 10 Mg Tab 10 Mg PO HS K-Tab (Potassium Chloride) 10 Meq Tab 10 Meq PO DAILY Trileptal (Oxcarbazepine) 600 Mg Tab 600 Mg PO BID Depo-Provera Inj (Medroxyprogesterone Inj) 150 Mg/Ml Inj 150 Mg IM Q90D Lasix (Furosemide) 40 Mg Tab 40 Mg PO DAILY Flexitol Heel [place] (Podiatric Products) 1 Oin Oin 1 Applic TOP BID Apply to both heels Ferrous Sulfate 325 Mg Tab 325 Mg PO BID Lexapro (Escitalopram Oxalate) 20 Mg Tab 20 Mg PO DAILY Valium (Diazepam) 5 Mg Tab 5 Mg PO TID [facility] (Cetylpyridinium Chloride (Mout) 0.07 % Liq 1 Applic PO BID Moisten toothette swab with mouthwash for oral hygiene Zyrtec Allergy (Cetirizine HCl) 10 Mg Cap 10 Mg PO DAILY Cetaphil Moisturizing (Emollient) 1 Lot Lot 1 Applic TOPICAL DAILY APPLY FROM NECK TO TOES Abilify (Aripiprazole) 30 Mg Tab 30 Mg PO DAILY Review of Systems ROS Limitations: Other: (patient with Down syndrome and not able to provide any history.) Respiratory: Positive: Wheezing, Other (coughing and choking episode last night , none today.) Gastrointestinal: No: Vomiting, Abdominal Pain Physical Exam Narrative GENERAL: Well-nourished, well-developed patient. SKIN: Focused skin assessment warm/dry. HEAD: Normocephalic/atraumatic. EYES: No scleral icterus. No injection or drainage. NECK: Supple, trachea midline. CARDIOVASCULAR: Regular rate and rhythm without murmurs, gallops, or rubs. RESPIRATORY: Fine wheezes heard at the bilateral lung bases. No Rales. No stridor. MUSCULOSKELETAL: No cyanosis, or edema. NEUROLOGICAL: Awake and alert. Cranial nerves II through XII intact. Motor grossly within normal limits. Five out of 5 muscle strength in all muscle groups. Data Data Last Documented VS Vital Signs Date Time Temp Pulse Resp B/P Pulse Ox O2 Delivery O2 Flow Rate FiO2 10/15/16 09:05 56 20 98 Room Air 10/15/16 09:05 133/60 10/15/16 08:49 97.6 Orders Chest, Single Ap (10/15/16 09:17) Albuterol-Ipratropium Neb (Duoneb Neb) (10/15/16 09:30) MDM Medical Decision Making Medical Screen Exam Complete: Yes Emergency Medical Condition: Yes Differential Diagnosis Asthma exacerbation versus pneumonia versus aspiration versus bronchitis Narrative Course 46-year-old female with a history of Down syndrome, reactive airway disease, who presents from the care facility for complaints of wheezing. Patient has out of her albuterol. The patient also had an episode of choking while eating crackers yesterday. That has since resolved. There is no evidence of Rales on examination. Chest x-ray shows no acute findings. She's been given 1 DuoNeb. She'll be discharged with a prescription for an albuterol MDI. She also be given a prescription for a spacer and facemask. She'll be discharged back to her facility. Diagnosis Primary Impression: Reactive airway disease Med/Other Pt SpecificInfo: Prescription(s) given Scripts Albuterol 18 GM Inh (Ventolin Hfa 18 GM Inh)90 Mcg/Act Aer2 Puff INH Q6H PRN ( SHORTNESS OF BREATH) #1 INHALER Ref 1 Prov:Loco Mcdowell MD 10/15/16 Disposition: 01 DISCHARGE HOME Condition: Stable Loco Mcdowell MD October 15, 2016 09:48
--- NOTE | 2016-10-15 09:55 | RADRPT ---
EXAM DATE/TIME: 10/15/2016 09:21 [facility] COMPARISON: CHEST SINGLE AP, July 21, 2016, 15:49. INDICATIONS : Wheezing, cough and congestion. MEDICAL HISTORY : Down's syndrome. SURGICAL HISTORY : None. ENCOUNTER: Initial ACUITY: 1 week PAIN SCORE: Non-responsive. LOCATION: Bilateral chest FINDINGS: Rotated and underinflated AP view of the chest demonstrates a normal-sized cardiac silhouette. No eff usion, consolidation, or pneumothorax is visualized. There is mild atelectasis at the lung bases. The re is thoracolumbar scoliosis. CONCLUSION: Underinflation with mild atelectasis at the bases. However, no acute cardiopulmonary abnormality is i dentified. Marco Fitch MD on October 15, 2016 at 9:52 Board Certified Radiologist. This report was verified electronically.
[2016-10-15] MEDS ORDERED: CETACRE5 (10:33)
[2016-10-15] MEDS ORDERED: VENTAER INH (10:54)
== END 2016-10-15 11:22 | disposition home or self-care (01) ==
LOC: NEPC 08:47
DX: J45.909 Unspecified asthma, uncomplicated (principal); Q90.9 Down syndrome, unspecified
CPT/HCPCS: 71010; 94664; 99283

== ENCOUNTER 2016-11-17 09:27 | Observation (INO) | payer OTHER ==
[~2016-11-17] VITALS: Ht 144.8 cm; Wt 66.0 kg
[~2016-11-17 09:27] MED LIST changes: +CETACRE5; -CHOL50008 PO; -DEXT1SUS PO; -[UNRECOGNIZED DRUG - CODE] TOP
[2016-11-17 09:30] VITALS: BP 123/59; PULSE 65; RESP 18; TEMP 97.9; O2SAT 94
[2016-11-17] MEDS ORDERED: SODIUM CHLORIDE 0.9% FLUSH 10 ML FLUSH IVF PRN (10:00)
[2016-11-17] MEDS ORDERED: methylPREDNISolone SOD SUCC 125 MG/2 ML VIAL IVP ONE (10:00)
--- NOTE | 2016-11-17 10:01 | PD ---
HPI Chief Complaint: Cold / Flu Symptoms Time Seen by Provider: 09:54 Travel History International Travel<30 days: No Contact w/Intl Traveler<30days: No Traveled to known affect area: No History of Present Illness HPI 46-year-old female with history of Down syndrome currently living in a group facility, presents to the ER today brought in by her plastics worker because she has had several days' history of cough, cold symptoms, and today was wheezing. They had given her several her nebulizers without significant improvement. They deny any fevers, vomiting, or any other issues. Patient is nonverbal and unable to give any further history. They do not know any sick contacts. Next Modifying Factors: None Associated Signs & Symptoms: Cough, cold symptoms, wheezing Risk Factors: Down syndrome PFSH Past Medical History Anemia: Yes (ANEMIA; HYPERLIPIDEMIA) Arthritis: No Asthma: No Autoimmune Disease: No Blood Disorders: Yes (ANEMIA) Anxiety: Yes Heart Rhythm Problems: No Cancer: No Cardiovascular Problems: Yes High Cholesterol: Yes Chemotherapy: No Chest Pain: No Congestive Heart Failure: No COPD: No Cerebrovascular Accident: No Developmental Delay: Yes (DOWN SYNDROME) Diabetes: No Diminished Hearing: No Endocrine: No Gastrointestinal Disorders: No GERD: No Glaucoma: No Genitourinary: No Headaches: No Hepatitis: No Hiatal Hernia: No Hypertension: No Immune Disorder: No Kidney Stones: No Musculoskeletal: No Neurologic: No Psychiatric: Yes (intermittent explosive d/o) Respiratory: Yes (resp. distress after IV sedation at dentist) Myocardial Infarction: No Pneumonia: Yes Radiation Therapy: No Renal Failure: No Seizures: Yes Sleep Apnea: No Thyroid Disease: No Ulcer: No Past Surgical History Abdominal Surgery: Yes ("GASTROINTESTINAL SURGERY UNSURE WHAT EXACTLY") AICD: No Joint Replacement: No Pacemaker: No Other Surgery: No Social History Alcohol Use: No Tobacco Use: No Substance Use: No Allergies-Medications (Allergen,Severity, Reaction): Coded Allergies: No Known Allergies (Unverified , 11/17/16) Reported Meds & Prescriptions Reported Meds & Active Scripts Active Ventolin Hfa 18 GM Inh (Albuterol Sulfate) 90 Mcg/Act Aer 2 Puff INH Q6H PRN Flonase Nasal [place] (Fluticasone Nasal [place]) 50 Mcg/Act [place] 50 Mcg EACH NARE BID Ventolin Hfa 18 GM Inh (Albuterol Sulfate) 90 Mcg/Act Aer 2 Puff INH Q4H PRN Aspirin 325 Mg Tab 325 Mg PO DAILY Reported Cetaphil (Emollient) 1 Cre Cre DAILY Solbar Pf Liquid/Gel Spf3 (Sunscreens) 1 Gel Gel 1 Applic TOP DIRECTED PRN Probiotic Daily (Probiotic Product) 1 Cap Cap 1 Cap PO DAILY Niacin Flush Free (Inositol Niacinate) 500 Mg Cap 500 Mg PO HS Calcium (Calcium Carbonate) 600 Mg Tab 1,200 Mg PO BID Bactroban (Mupirocin) 2 % Oin 1 Applic TOPICAL BID PRN Ibuprofen 600 Mg Tab 600 Mg PO BID PRN Lotrisone Topical (Betamethasone/Clotrimazole) 1-0.05% Cream 1 Applic TOPICAL BID Apply to affected area(s) on arms,legs,perineal area for rash,mild burning or stinging Guaifenesin 200 Mg Tab 200 Mg PO Q4HR PRN Anti-Diarrheal (Loperamide HCl) 2 Mg Cap 2 Mg PO DIRECTED PRN One capsule after each loose stool. Not to exceed 4 capsules per day. Tylenol (Acetaminophen) 325 Mg Tab 650 Mg PO Q4H PRN Not to exceed 3,000mg/24hr Zeasorb-AF Topical Powder (Miconazole Topical Powder) 2 % Pow 1 Applic TOPICAL DAILY Apply to areas on inner thighs Thick-It Original (Starch-Maltodextrin (Thickenin) 1 Pow Pow DIRECTED [place] Thick Liquids Thera-M (Multiple Vitamins W/ Minerals) 1 Tab 1 Tab PO DAILY Zocor (Simvastatin) 10 Mg Tab 10 Mg PO HS K-Tab (Potassium Chloride) 10 Meq Tab 10 Meq PO DAILY Trileptal (Oxcarbazepine) 600 Mg Tab 600 Mg PO BID Depo-Provera Inj (Medroxyprogesterone Inj) 150 Mg/Ml Inj 150 Mg IM Q90D Lasix (Furosemide) 40 Mg Tab 40 Mg PO DAILY Flexitol Heel [place] (Podiatric Products) 1 Oin Oin 1 Applic TOP BID Apply to both heels Ferrous Sulfate 325 Mg Tab 325 Mg PO BID Lexapro (Escitalopram Oxalate) 20 Mg Tab 20 Mg PO DAILY Valium (Diazepam) 5 Mg Tab 5 Mg PO TID [facility] (Cetylpyridinium Chloride (Mout) 0.07 % Liq 1 Applic PO BID Moisten toothette swab with mouthwash for oral hygiene Zyrtec Allergy (Cetirizine HCl) 10 Mg Cap 10 Mg PO DAILY Cetaphil Moisturizing (Emollient) 1 Lot Lot 1 Applic TOPICAL DAILY APPLY FROM NECK TO TOES Abilify (Aripiprazole) 30 Mg Tab 30 Mg PO DAILY Review of Systems ROS Limitations: Poor Historian (Down syndrome) Physical Exam Narrative GENERAL: Well-developed middle age mentally impaired white female patient currently in mild distress. Awake and alert. SKIN: Focused skin assessment warm/dry. HEAD: Atraumatic. Normocephalic. EYES: No scleral icterus. No injection or drainage. ENT: No nasal bleeding or discharge. Mucous membranes pink and moist. NECK: Trachea midline. No JVD. CARDIOVASCULAR: Regular rate and rhythm. No murmur appreciated. RESPIRATORY: Mild accessory muscle use. Wheezing throughout bilaterally. Breath sounds equal bilaterally. GASTROINTESTINAL: Abdomen soft, non-tender, nondistended. Hepatic and splenic margins not palpable. MUSCULOSKELETAL: No obvious deformities. No clubbing. No cyanosis. No edema. NEUROLOGICAL: Awake and alert. No obvious cranial nerve deficits although exam is limited secondary to patient's Down syndrome and inability to follow directions. Moving all 4 extremities. Nonverbal. Data Data Last Documented VS Vital Signs Date Time Temp Pulse Resp B/P Pulse Ox O2 Delivery O2 Flow Rate FiO2 11/17/16 10:19 96 21 11/17/16 10:08 Room Air 11/17/16 10:01 70 11/17/16 09:30 97.9 18 123/59 Orders Complete Blood Count With Diff (11/17/16 09:54) Comprehensive Metabolic Panel (11/17/16 09:54) Chest, Single Ap (11/17/16 09:54) Ecg Monitoring (11/17/16 09:54) Iv Access Insert/Monitor (11/17/16 09:54) Oximetry (11/17/16 09:54) Oxygen Administration (11/17/16 09:54) Methylprednisolone So Succ Inj (Solumedr (11/17/16 10:00) Albuterol-Ipratropium Neb (Duoneb Neb) (11/17/16 10:00) Sodium Chloride 0.9% Flush (Ns Flush) (11/17/16 10:00) Influenzae A/B Antigen (11/17/16 09:54) Albuterol-Ipratropium Neb (Duoneb Neb) (11/17/16 11:15) Admit Order (Ed Use Only) (11/17/16 12:38) Labs Laboratory Tests Test 11/17/16 10:11 White Blood Count 5.5 TH/MM3 Red Blood Count 3.40 MIL/MM3 Hemoglobin 11.3 GM/DL Hematocrit 33.1 % Mean Corpuscular Volume 97.3 FL Mean Corpuscular Hemoglobin 33.1 PG Mean Corpuscular Hemoglobin 34.0 % Concent Red Cell Distribution Width 14.7 % Platelet Count 167 TH/MM3 Mean Platelet Volume 11.0 FL Neutrophils (%) (Auto) 75.4 % Lymphocytes (%) (Auto) 10.1 % Monocytes (%) (Auto) 4.3 % Eosinophils (%) (Auto) 9.3 % Basophils (%) (Auto) 0.9 % Neutrophils # (Auto) 4.2 TH/MM3 Lymphocytes # (Auto) 0.6 TH/MM3 Monocytes # (Auto) 0.2 TH/MM3 Eosinophils # (Auto) 0.5 TH/MM3 Basophils # (Auto) 0.0 TH/MM3 CBC Comment DIFF FINAL Differential Comment Sodium Level 134 MEQ/L Potassium Level 3.7 MEQ/L Chloride Level 96 MEQ/L Carbon Dioxide Level 32.7 MEQ/L Anion Gap 5 MEQ/L Blood Urea Nitrogen 9 MG/DL Creatinine 0.69 MG/DL Estimat Glomerular Filtration 92 ML/MIN Rate Random Glucose 97 MG/DL Calcium Level 8.9 MG/DL Total Bilirubin LESS THAN 0.1 MG/DL Aspartate Amino Transf 26 U/L (AST/SGOT) Alanine Aminotransferase 32 U/L (ALT/SGPT) Alkaline Phosphatase 108 U/L Total Protein 7.5 GM/DL Albumin 3.1 GM/DL MDM Medical Decision Making Medical Screen Exam Complete: Yes Emergency Medical Condition: Yes Medical Record Reviewed: Yes Interpretation(s) Laboratory Tests Test 11/17/16 10:11 Red Blood Count 3.40 MIL/MM3 (4.00-5.30) Hemoglobin 11.3 GM/DL (11.6-15.3) Hematocrit 33.1 % (35.0-46.0) Neutrophils (%) (Auto) 75.4 % (16.0-70.0) Eosinophils (%) (Auto) 9.3 % (0.0-4.0) Lymphocytes # (Auto) 0.6 TH/MM3 (1.0-4.8) Eosinophils # (Auto) 0.5 TH/MM3 (0-0.4) Sodium Level 134 MEQ/L (136-145) Chloride Level 96 MEQ/L (98-107) Carbon Dioxide Level 32.7 MEQ/L (21.0-32.0) Total Bilirubin LESS THAN 0.1 MG/DL (0.2-1.0) Albumin 3.1 GM/DL (3.4-5.0) Differential Diagnosis Coughing, wheezing, cold symptomsbronchitis versus asthma exacerbation versus pneumonia Narrative Course Chest x-ray is unremarkable for any significant acute pulmonary processes. Influenza is negative. I suspect underlying bronchitis and asthma exacerbation. Patient was given Solu-Medrol and DuoNeb's in the ER. And after reevaluation, patient needed further nebulizers and is continuing to wheeze. At this point, my plan would be to admit the patient for further treatment. Case was discussed with PA for [facility] hospitalists for admission. Diagnosis Primary Impression: Bronchitis Additional Impression: Asthma, intrinsic, without status asthmaticus Admitting Information Admitting Physician Requests: Admit Joseph Tipton MD Nov 17, 2016 10:01
[2016-11-17] MEDS: RESP: ALBUTEROL 2.5 MG/IPRATROPIUM 0.5 MG NEB (SCH) INH ×2 (10:15→11:29)
[2016-11-17 10:19] VITALS: O2SAT 96
[2016-11-17 10:27] LABS: AUTOMATED NEUTROPHIL # 4.2 TH/MM3 (1.8-7.7); BASOPHIL % 0.9 % (0.0-2.0); EOSINOPHIL # 0.5 TH/MM3 (0-0.4); EOSINOPHIL % 9.3 % (0.0-4.0); HEMATOCRIT 33.1 % (35.0-46.0); HEMO FLAGS DIFF FINAL; LYMPH % 10.1 % (9.0-44.0); LYMPHOCYTE # 0.6 TH/MM3 (1.0-4.8); MEAN CELL VOLUME 97.3 FL (80.0-100.0); MEAN CORPUSCULAR HEMOGLOBIN 33.1 PG (27.0-34.0); MONO % 4.3 % (0.0-8.0); NEUT % 75.4 % (16.0-70.0); PLATELET COUNT 167 TH/MM3 (150-450); RED CELL DISTRIBUTION WIDTH 14.7 % (11.6-17.2); WHITE BLOOD COUNT 5.5 TH/MM3 (4.0-11.0)
[2016-11-17 10:41] LABS: ALT (GPT) 32 U/L (10-53); ANION GAP 5 MEQ/L (5-15); AST (GOT) 26 U/L (15-37); BICARBONATE 32.7 MEQ/L (21.0-32.0); BLOOD UREA NITROGEN 9 MG/DL (7-18); CHLORIDE 96 MEQ/L (98-107); GLOMERULAR FILTRATION RATE 92 ML/MIN (>89); POTASSIUM 3.7 MEQ/L (3.5-5.1); SODIUM (NA) 134 MEQ/L (136-145)
[2016-11-17 10:44] LABS: ALKALINE PHOSPHATASE 108 U/L (45-117); TOTAL BILIRUBIN ADULT LESS THAN 0.1 MG/DL (0.2-1.0)
--- NOTE | 2016-11-17 11:00 | RADRPT ---
EXAM DATE/TIME: 11/17/2016 10:04 [facility] COMPARISON: CHEST SINGLE AP, October 15, 2016, 9:21. INDICATIONS : Wheezing and flu like symptoms. MEDICAL HISTORY : Seizures. Down syndrome. SURGICAL HISTORY : None. ENCOUNTER: Initial ACUITY: 3 days PAIN SCORE: 0/10 LOCATION: Bilateral chest FINDINGS: A single portable frontal view the chest shows the patient's chin and soft tissues obscuring the left lung apex. Visualized lungs are clear. No effusions. Heart is normal in size. Scoliotic curvature of the spine. CONCLUSION: No acute disease. Julito Shukla Jr., MD on November 17, 2016 at 10:57 Board Certified Radiologist. This report was verified electronically.
[2016-11-17] MEDS ORDERED: ONDANSETRON HCL 4 MG/2 ML VIAL IVP PRN (12:45)
[2016-11-17] MEDS ORDERED: LACTULOSE SYRUP 20 GM/30 ML CUP PO PRN (12:45)
[2016-11-17] MEDS ORDERED: ACETAMINOPHEN 325 MG TAB PO PRN (12:45)
[2016-11-17] MEDS ORDERED: MAGNESIUM HYDROXIDE SUSP 30 ML CUP PO PRN (12:45)
[2016-11-17] MEDS: SODIUM CHLORIDE 0.9% FLUSH 10 ML FLUSH IV FLUSH SCH ×2 (12:45→22:09)
[2016-11-17] MEDS ORDERED: SODIUM CHLORIDE 0.9% FLUSH 10 ML FLUSH IV FLUSH PRN (12:45)
[2016-11-17] MEDS ORDERED: NALOXONE HCL 0.4 MG/ML AMP IV PRN (12:45)
[2016-11-17] MEDS ORDERED: SENNOSIDES 8.6 MG TAB PO PRN (12:45)
[2016-11-17] MEDS ORDERED: RESP: ALBUTEROL 2.5 MG/IPRATROPIUM 0.5 MG NEB (PRN) NEB (13:00)
[2016-11-17] MEDS: HEPARIN SODIUM - SQ 10,000 UNITS/ML VIAL SQ SCH (13:00)
--- NOTE | 2016-11-17 14:03 | MH ---
cc: SINDHU MCDUFFIE MD DATE OF ADMISSION 11/17/2016 DATE OF 1970 REASON FOR EVALUATION AND ADMISSION Shortness of breath and wheezing. TRAVEL HISTORY In the last 30 days, none. HISTORY OF PRESENT ILLNESS This is a 46-year-old female currently living in her group for greater than 10 years, with Down syndrome. She had some cough and cold symptoms which had been noted per her caregivers which has waxed and waned over the past few days. She also was noted for some wheezing yesterday and today and was given her inhalers but did not seem to correct her shortness of breath. There is a caregiver currently with her who denies any fever, no nausea no vomiting. She is positive for some decreased appetite and some lethargy. According to the record and the patient care secretary and my assessment the patient is nonverbal and unable to contribute to her history. Most of the information is being gathered per the caregiver and the medical record. MEDICAL HISTORY Anemia, hyperlipidemia, anxiety disorder, Down syndrome since , cardiovascular disease, anxiety with explosive intermittent disorder, asthma, previous pneumonia, seizures, COPD. PAST SURGICAL HISTORY Some type of GI surgery. ALLERGIES None known. MEDICATIONS Reported: 1. Emollients. 2. Sunscreens. 3. Probiotics. 4. Niacin. 5. Calcium. 6. Bactroban ophthalmic ointment. 7. Ibuprofen. 8. Lotrisone. 9. Guaifenesin. 10. Antidiarrheal medications. 11. Tylenol. 12. Zeasorb. 13. Thick-It for her meals. 14. Vitamins. 15. Simvastatin. 16. K-Tab. 17. Trilpetal. 18. Depo-Provera. 19. Lasix. 20. Flexitol. 21. Iron tablets. 22. Lexapro. 23. Valium. 24. Mouth wash. 25. [facility] 26. Zyrtec. 27. Cetaphil moisturizer to neck and toes. 28. Abilify. SOCIAL HISTORY The patient currently lives in a long-term. She has been with this home for greater than 10 years. According to the caregiver no history of alcohol, tobacco or illicit drugs. PHYSICAL EXAMINATION VITAL SIGNS: Temperature is 97.9, pulse 70, respirations 18, blood pressure 123/59, O2 sat 94, currently on room air. GENERAL: Well-nourished, well-developed middle-aged white female with Down symptoms. She is resting on the stretcher. Eyes are closed. Does appear lethargic but does respond to tactile stimuli. SKIN: Warm and dry. HEENT: Atraumatic, normocephalic with small, low set ears. No nasal discharged or scleral icterus noted. NECK: Neck is supple. Trachea is midline. No nasal discharge. CARDIOVASCULAR: Regular rate and rhythm. Soft systolic murmur grade 3/6 to the left sternal border. RESPIRATORY: Volumes are low with some diminished breath sounds, mild wheezing noted anteriorly and posteriorly especially in the upper rowe. GI: Abdomen is flat, soft, nontender, nondistended. Active bowel sounds. MUSCULOSKELETAL: The patient is curled up in a position but laying on her back. She has no obvious deformities. No edema. NEUROLOGICALLY: She is lethargic but responds to soft, tactile stimuli. Non-verbal. She does appear to move her extremities randomly DIAGNOSTIC STUDIES WBC count 5.5, RBC 3.4, hemoglobin 11.3, hematocrit 33.1, platelet count 167, neutrophil count percentage auto 75.4, lymphocytes and 10.1, monocytes, 4.3 eosinophils 9.3. Chemistry, sodium 134, potassium 3.7, chloride 96, carbon dioxide 32.7, BUN is 9, creatinine 0.69, bilirubin less than 0.1, calcium 8.9, albumin is 3.1. IMAGING STUDIES Shows her chest x-ray to have no acute disease. ASSESSMENT Possible bronchitis with COPD exacerbation. History of Down syndrome, hyperlipidemia. Reactive airway disease. History of asthma without status asthmaticus. PLAN Our plan is to admit for observation. We will monitor her vital signs q. 4. Activity will be out of bed with assistance according to what her routine is. Will place her on telemetry, give her DuoNebs. Reconcile her medications. Maintain her IV access. P.r.n. meds for pain, nausea and fever. Will monitor her labs, DVT prophylaxis with SCDs and heparin. Stool softeners and bowel regimen according to what her needs are. In the emergency room she was given a dose of methylprednisolone 125, DuoNeb treatment, and continuous monitoring of her ECG. We will go ahead and continue IV steroids for at least 24 hours to control the patient's wheezing. To my knowledge and according to her records she is full code, full aggressive care. Her ventilator status has not been addressed but there is a note from her mother who is her POA that she requests no feeding tube or no artificial feeding for the patient. We will follow. Dictated by: ANTONETTE Lazo MD YUMIKO Parra/OPAL /1:13 PM /1:31 PM
[2016-11-17] MEDS: CEPHALEXIN MONOHYDRATE 500 MG CAP PO SCH ×2 (15:06→22:09)
[2016-11-17 15:18] VITALS: BP 134/86; PULSE 86; RESP 15; TEMP 98; O2SAT 95
[2016-11-17] MEDS: methylPREDNISolone SOD SUCC 40 MG/1 ML VIAL IV PUSH SCH (17:48)
[2016-11-17 19:53] VITALS: BP 131/81; PULSE 96; RESP 20; TEMP 98.2; O2SAT 93
[2016-11-17 20:08] VITALS: O2SAT 95
[2016-11-17] MEDS: DOCUSATE SODIUM 50 MG/SENNA 8.6 MG TAB PO SCH (22:09)
[2016-11-18 00:01] VITALS: BP 131/65; PULSE 95; RESP 20; TEMP 98.6; O2SAT 90
[2016-11-18] MEDS: methylPREDNISolone SOD SUCC 40 MG/1 ML VIAL IV PUSH SCH ×2 (02:25→08:05)
[2016-11-18] MEDS: HEPARIN SODIUM - SQ 10,000 UNITS/ML VIAL SQ SCH ×2 (02:30→13:04)
[2016-11-18 03:44] VITALS: PULSE 83
[2016-11-18 05:38] LABS: BICARBONATE 26.8 MEQ/L (21.0-32.0)
[2016-11-18] MEDS: CEPHALEXIN MONOHYDRATE 500 MG CAP PO SCH ×2 (05:39→14:51)
[2016-11-18 07:08] VITALS: BP 146/65; PULSE 87; RESP 20; TEMP 98.3; O2SAT 96
[2016-11-18] MEDS: DOCUSATE SODIUM 50 MG/SENNA 8.6 MG TAB PO SCH (08:05)
[2016-11-18] MEDS: SODIUM CHLORIDE 0.9% FLUSH 10 ML FLUSH IV FLUSH SCH (08:06)
[2016-11-18 08:45] VITALS: O2SAT 95
--- NOTE | 2016-11-18 08:45 | HHI.PR ---
Subjective Remarks awake non verbal now, but does cry out at times. anxiety taking off clothes, IV , telemetry (Selam Alvarado) Objective Objective Results - Vital Signs Date Time Temp Pulse Resp B/P Pulse Ox O2 Delivery O2 Flow Rate FiO2 11/18/16 07:08 98.3 87 20 146/65 96 11/18/16 03:44 83 11/18/16 00:01 98.6 95 20 131/65 90 11/17/16 20:08 95 21 11/17/16 19:53 98.2 96 20 131/81 93 11/17/16 15:18 98.0 86 15 134/86 95 11/17/16 10:19 96 21 11/17/16 10:08 97 Room Air 11/17/16 10:01 70 97 Room Air 11/17/16 09:30 97.9 65 18 123/59 94 (Selam Alvarado) Result Diagram: 11/17/16 1011 11/18/16 0443 ROS General: Weakness (mild), Other (10 point ROS done. positives noted) HEENT: Other (lt. eye ) Pulmonary: SOB (occ.) Neuro/MS: Confusion (new surroundings) (Selam Alvarado) Physical Exam Physical Exam PHYSICAL EXAMINATION GENERAL: This is a female who appears to be having no shortness of breath at present She is awake, not sleeping this past a.m. according to staff HEAD: Low-set ears, Down syndrome OROPHARYNGEAL: Oropharynx clear NECK: Supple. Trachea midline without deviation. CARDIAC: Regular rhythm, regular rate, S1 and S2 are heard distant LUNGS: Low volumes to auscultation bilaterally. Occasional upper airway wheeze , no rhonchi no rales ABDOMEN: Soft, nontender, EXTREMITIES: No acute edema. Pulses intact NEUROLOGICAL: Patient mood and affect flat, mild anxiety, unfamiliar surroundings SKIN:Warm , dry (Selam Alvarado) A/P Assessment and Plan Possible bronchitis COPD exacerbation. History of Down syndrome, hyperlipidemia. Reactive airway disease. History of asthma Monitoring her vital signs, monitoring her safety, patient did not sleep last and did occasionally cries out with some shortness of breath. Want keep any IVs O2 or or her garments on Monitor for her safety O2 if she wears Medical management with meds to control her COPD exacerbation and wheezes Discussed with nurse Discussed with Dr. 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
[2016-11-18 11:28] VITALS: BP 129/64; PULSE 71; RESP 17; TEMP 98.2; O2SAT 91
[2016-11-18] MEDS ORDERED: PRED10PA PO (12:54)
[2016-11-18] MEDS ORDERED: CEPH500C PO (12:54)
--- NOTE | 2016-11-18 15:50 | OTSOAPIP ---
TIME SESSION COMPLETED: PM TREATMENT TIME: 0 MINS. CHART REVIEWED. ATTEMPTED TO SEE FOR OT EVALUATION, HOWEVER PT ALREADY DISCHARGED. Therapist: DENILSON SALCIDO OT/L Signature on file
--- NOTE | 2016-11-18 17:36 | HHI.DS ---
Discharge Summary Admission Date Nov 17, 2016 at 12:40 Discharge Date: Nov 18, 2016 Admitting Diagnosis asthma exacerbation Procedures none CBC/BMP: 11/17/16 1011 11/18/16 0443 Significant Findings Laboratory Tests Test 11/17/16 11/18/16 10:11 04:43 Red Blood Count 3.40 MIL/MM3 (4.00-5.30) Hemoglobin 11.3 GM/DL (11.6-15.3) Hematocrit 33.1 % (35.0-46.0) Neutrophils (%) (Auto) 75.4 % (16.0-70.0) Eosinophils (%) (Auto) 9.3 % (0.0-4.0) Lymphocytes # (Auto) 0.6 TH/MM3 (1.0-4.8) Eosinophils # (Auto) 0.5 TH/MM3 (0-0.4) Sodium Level 134 MEQ/L 131 MEQ/L (136-145) (136-145) Chloride Level 96 MEQ/L 96 MEQ/L (98-107) (98-107) Carbon Dioxide Level 32.7 MEQ/L (21.0-32.0) Total Bilirubin LESS THAN 0.1 MG/DL (0.2-1.0) Albumin 3.1 GM/DL (3.4-5.0) Imaging Last Impressions Chest X-Ray 11/17/16 0967 Signed Impressions: Service Date/Time: Tuesday, November 17, 2016 10:04 - CONCLUSION: No acute disease. Julito Shukla Jr., MD Pt Condition on Discharge: Stable Discharge Disposition: Discharge Home Discharge Instructions DIET: Follow Instructions for: Heart Healthy Diet Speech Therapy-Diet Recommends: Pudding Thickened Liquids Activities you can perform: Regular-No Restrictions New Medications: Prednisone (21) 10 mg tab Dose Pack (Prednisone (21) 10 mg tab Dose Pack) 10 Mg Pack 10 MG PO DIRECTED Inflammation #1 Ref 0 DSPK Cephalexin (Cephalexin) 500 Mg Cap 500 MG PO Q8HR bronchitis #21 CAP Continued Medications: Acetaminophen (Tylenol) 325 Mg Tab 650 MG PO Q4H Not to exceed 3,000mg/24hr PRN PAIN 1-10 AND/OR FEVER >101F Ref 0 TAB Albuterol 18 GM Inh (Ventolin Hfa 18 GM Inh) 90 Mcg/Act Aer 2 PUFF INH Q4H PRN SHORTNESS OF BREATH #1 Ref 0 INHALER Albuterol 18 GM Inh (Ventolin Hfa 18 GM Inh) 90 Mcg/Act Aer 2 PUFF INH Q6H PRN SHORTNESS OF BREATH #1 Ref 1 INHALER Aripiprazole (Abilify) 30 Mg Tab 30 MG PO DAILY #30 Ref 0 TAB Aspirin (Aspirin) 325 Mg Tab 325 MG PO DAILY hypercholesterolemia #30 TAB Betamethasone-Clotrimazole Topical (Lotrisone Topical) 1-0.05% Cream 1 APPLIC TOPICAL BID Apply to affected area(s) on arms,legs,perineal area for rash,mild burning or stinging Fungal infection #15 Ref 0 GM Calcium Carbonate (Calcium) 600 Mg Tab 1200 MG PO BID Cetylpyridinium Chloride (Mout (Crest Pro-Health) 0.07 % Liq 1 APPLIC PO BID Moisten toothette swab with mouthwash for oral hygiene Diazepam (Valium) 5 Mg Tab 5 MG PO TID ANXIETY/AGITATION Ref 0 TAB Emollient (Cetaphil Moisturizing) 1 Lot Lot 1 APPLIC TOPICAL DAILY APPLY FROM NECK TO TOES Escitalopram (Lexapro) 20 Mg Tab 20 MG PO DAILY DEPRESSIVE DISORDER #30 Ref 0 TAB Ferrous Sulfate (Ferrous Sulfate) 325 Mg Tab 325 MG PO BID ANEMIA #30 Ref 0 TAB Fluticasone Nasal [place] (Flonase Nasal [place]) 50 Mcg/Act [place] 50 MCG EACH NARE BID Allergies #1 Ref 0 BOTTLE Furosemide (Lasix) 40 Mg Tab 40 MG PO DAILY EDEMA #30 Ref 0 TAB Guaifenesin (Guaifenesin) 200 Mg Tab 200 MG PO Q4HR PRN COUGH Medroxyprogesterone Inj (Depo-Provera Inj) 150 Mg/Ml Inj 150 MG IM Q90D Control Ref 0 VIAL Miconazole Topical Powder (Zeasorb-AF Topical Powder) 2 % Pow 1 APPLIC TOPICAL DAILY Apply to areas on inner thighs Ref 0 CAN Multiple Vitamins W/ Minerals (Thera-M) 1 Tab 1 TAB PO DAILY Nutritional Supplement Ref 0 TAB Mupirocin (Bactroban) 2 % Oin 1 APPLIC TOPICAL BID PRN PREVENT SKIN INFECTION Oxcarbazepine (Trileptal) 600 Mg Tab 600 MG PO BID EXPLOSIVE BEHAVIOR #60 Ref 0 TAB Podiatric Products (Flexitol Heel [place]chor) 1 Oin Oin 1 APPLIC TOP BID Apply to both heels Potassium Chloride ER (K-Tab) 10 Meq Tab 10 MEQ PO DAILY Electrolyte Replacement #30 Ref 0 TAB Probiotic Product (Probiotic Daily) 1 Cap Cap 1 CAP PO DAILY Simvastatin (Zocor) 10 Mg Tab 10 MG PO HS Cholesterol Management #30 Ref 0 TAB Starch-Maltodextrin (Thickenin (Thick-It Original) 1 Pow Pow DIRECTED [place] Thick Liquids Sunscreens (Solbar Pf Liquid/Gel Spf3) 1 Gel Gel 1 APPLIC TOP DIRECTED PRN PREVENT SUNBURN Discontinued Medications: Cetirizine (Zyrtec Allergy) 10 Mg Cap 10 MG PO DAILY Allergies Ref 0 CAP Emollient (Cetaphil) 1 Cre Cre DAILY Dry Skin Ibuprofen (Ibuprofen) 600 Mg Tab 600 MG PO BID PRN MENSES PAIN Ref 0 TAB Inositol Niacinate (Niacin Flush Free) 500 Mg Cap 500 MG PO HS LOW LDL Loperamide (Anti-Diarrheal) 2 Mg Cap 2 MG PO DIRECTED One capsule after each loose stool. Not to exceed 4 capsules per day. PRN DIARRHEA CAP Selam Alvarado Nov 18, 2016 17:36
== END 2016-11-18 15:32 | disposition home or self-care (01) ==
LOC: NEPE 09:27 → NEDA 12:40 → NEPGCP 14:14
PROVIDERS: ADMIT Internal Medicine; ATTEND Internal Medicine
DX: J44.1 Chronic obstructive pulmonary disease with (acute) exacerbation (principal); Q90.9 Down syndrome, unspecified; D64.9 Anemia, unspecified; E78.5 Hyperlipidemia, unspecified; F41.9 Anxiety disorder, unspecified; E78.00 Pure hypercholesterolemia, unspecified; F63.81 Intermittent explosive disorder; Z79.82 Long term (current) use of aspirin; Z87.01 Personal history of pneumonia (recurrent)
CPT/HCPCS: 71010; 80048; 80053; 85025; 87804; 94640; 94664; 96372; 96374; 97162; 99285; G0378; G8987; G8988; G8989; J1644; J2920; J2930

== ENCOUNTER 2017-05-01 15:07 | Observation (INO) | payer OTHER ==
[2017-05-01] VITALS (7 sets, daily range): BP systolic 103–135; BP diastolic 49–73; PULSE 70–91; RESP 16–20; TEMP 97.9–98.2; O2SAT 97–100
[~2017-05-01] VITALS: Ht 147.3 cm; Wt 68.0 kg
[~2017-05-01 15:07] MED LIST changes: -ABIL30TA2 PO; +ABIL30TA5 PO; -ANTI2CAP PO; +ASPI-183 PO; -ASPI325T PO; -CALC600T25 PO; +CALC600T5 PO; +CEPH500C PO; -CETACRE5; -IBUP-232 PO; -NIAC500C4 PO; +PRED10PA PO; -ZYRT10CA PO
--- NOTE | 2017-05-01 17:08 | PD ---
HPI Chief Complaint: GI Complaint Time Seen by Provider: 16:19 Travel History International Travel<30 days: No Contact w/Intl Traveler<30days: No Traveled to known affect area: No History of Present Illness HPI This is a 47-year-old female who has a history of Down syndrome who presents to the emergency department with constipation. Her staff at her [facility] living thinks that she has a fecal impaction because he can see stool in her rectum and she can't get it out. She seems uncomfortable. She has vomited twice today. She is unable to provide any history. PFSH Past Medical History Anemia: Yes (ANEMIA; HYPERLIPIDEMIA) Arthritis: No Asthma: No Autoimmune Disease: No Blood Disorders: No Anxiety: Yes Depression: No Heart Rhythm Problems: No Cancer: No Cardiovascular Problems: No High Cholesterol: Yes Chemotherapy: No Chest Pain: No Congestive Heart Failure: No COPD: No Cerebrovascular Accident: No Developmental Delay: Yes (DOWN SYNDROME) Diabetes: No Diminished Hearing: No Endocrine: No Gastrointestinal Disorders: No GERD: No Glaucoma: No Genitourinary: No Headaches: No Hepatitis: No Hiatal Hernia: No Hypertension: No Immune Disorder: No Kidney Stones: No Musculoskeletal: No Neurologic: Yes Psychiatric: Yes Reproductive: No Respiratory: No Myocardial Infarction: No Pneumonia: Yes Radiation Therapy: No Renal Failure: No Seizures: Yes Sleep Apnea: No Thyroid Disease: No Ulcer: No Tetanus Vaccination: < 5 Years Influenza Vaccination: Yes ?: Not Past Surgical History Abdominal Surgery: Yes ("GASTROINTESTINAL SURGERY UNSURE WHAT EXACTLY") AICD: No Joint Replacement: No Pacemaker: No Other Surgery: No Social History Alcohol Use: No Tobacco Use: No Substance Use: No Allergies-Medications (Allergen,Severity, Reaction): Coded Allergies: No Known Allergies (Unverified Adverse Reaction, Unknown, 05/01/17) Reported Meds & Prescriptions Reported Meds & Active Scripts Active Ventolin Hfa 18 GM Inh (Albuterol Sulfate) 90 Mcg/Act Aer 2 Puff INH Q6H PRN Reported Calcium (Calcium Carbonate) 600 Mg Tab 1,200 Mg PO BID Zocor (Simvastatin) 10 Mg Tab 10 Mg PO HS K-Tab (Potassium Chloride) 10 Meq Tab 10 Meq PO DAILY Trileptal (Oxcarbazepine) 600 Mg Tab 600 Mg PO BID Lasix (Furosemide) 40 Mg Tab 40 Mg PO DAILY Lexapro (Escitalopram Oxalate) 20 Mg Tab 20 Mg PO DAILY Abilify (Aripiprazole) 30 Mg Tab 30 Mg PO DAILY Review of Systems ROS Limitations: Poor Historian Physical Exam Exam Limitations: Uncooperative Narrative Deferred until patient received sedation Data Data Last Documented VS Vital Signs Date Time Temp Pulse Resp B/P (MAP) Pulse Ox O2 Delivery O2 Flow Rate FiO2 05/01/17 15:08 97.9 91 20 135/73 (93) 97 Room Air MDM Medical Decision Making Medical Screen Exam Complete: Yes Emergency Medical Condition: Yes Differential Diagnosis Constipation, fecal impaction, bowel obstruction, ileus Narrative Course This is a 47-year-old female who has a history of Down syndrome who presents to the emergency department impacted having had an episode of vomiting. She is difficult to examine and will lay down. I think she'll require some sedation and then we can try to do a manual fecal impaction and see if this takes her feel better. If this is unsuccessful she may require CT imaging. Paola Nino MD May 01, 2017 17:08
[2017-05-01] MEDS ORDERED: LORazepam 2 MG/ML VIAL IM ONE (17:15)
--- NOTE | 2017-05-01 17:18 | PD ---
Physical Exam Date Seen by Provider: May 01, 2017 Time Seen by Provider: 17:18 Narrative 47-year-old female history of mental retardation presents to the emergency department for constipation. The patient does not answer any questions. Her are at the [facility] is at bedside. She states that she has not had a bowel movement 3 days. She states this is quite unusual for the patient is a patient usually has diarrhea. The patient is uncooperative with exam, but this is apparently her baseline. They state they can see stool coming out of her rectum , but she is unable to go. She has vomited twice. The patient herself is a poor historian and unable to contribute any history or physical. GENERAL: Well-nourished, well-developed female patient, afebrile. SKIN: Focused skin assessment warm/dry. HEAD: Normocephalic. Atraumatic. EYES: No scleral icterus. No injection or drainage. NECK: Supple, trachea midline. No JVD or lymphadenopathy. CARDIOVASCULAR: Regular rate and rhythm without murmurs, gallops, or rubs. RESPIRATORY: Breath sounds equal bilaterally. No accessory muscle use. GASTROINTESTINAL: Abdomen soft, non-tender, nondistended. Patient does have large umbilical hernia. There is no moaning or grimacing upon my examination. MUSCULOSKELETAL: No cyanosis, or edema. BACK: Nontender without obvious deformity. No CVA tenderness. Data Data Last Documented VS Vital Signs Date Time Temp Pulse Resp B/P (MAP) Pulse Ox O2 Delivery O2 Flow Rate FiO2 05/01/17 20:45 100 4.00 05/01/17 20:45 Nasal Cannula 05/01/17 19:41 18 05/01/17 18:55 98.2 89 Orders Orders Lorazepam Inj (Ativan Inj) (05/01/17 17:15) Fleets Enema (Adult) (Fleets Enema (Adul (05/01/17 18:00) Complete Blood Count With Diff (05/01/17 18:00) Comprehensive Metabolic Panel (05/01/17 18:00) Lipase (05/01/17 18:00) Prothrombin Time / Inr (Pt) (05/01/17 18:00) Act Partial Throm Time (Ptt) (05/01/17 18:00) Ct Abd/Pel W Iv Contrast(Rout) (05/01/17 18:00) Iv Access Insert/Monitor (05/01/17 18:00) Ecg Monitoring (05/01/17 18:00) Oximetry (05/01/17 18:00) Sodium Chloride 0.9% Flush (Ns Flush) (05/01/17 18:00) Type And Screen (05/01/17 18:00) Sodium Chlorid 0.9% 500 Ml Inj (Ns 500 M (05/01/17 18:00) Ketamine Inj (Ketalar Inj) (05/01/17 20:15) Lorazepam Inj (Ativan Inj) (05/01/17 20:15) Iohexol 350 Inj (Omnipaque 350 Inj) (05/01/17 20:51) Admit Order (Ed Use Only) (05/01/17 21:24) Labs Laboratory Tests Test 05/01/17 18:44 White Blood Count 8.1 TH/MM3 Red Blood Count 2.91 MIL/MM3 Hemoglobin 9.7 GM/DL Hematocrit 30.4 % Mean Corpuscular Volume 104.5 FL Mean Corpuscular Hemoglobin 33.4 PG Mean Corpuscular Hemoglobin Concent 32.0 % Red Cell Distribution Width 19.1 % Platelet Count 186 TH/MM3 Mean Platelet Volume 10.8 FL Neutrophils (%) (Auto) 81.0 % Lymphocytes (%) (Auto) 14.6 % Monocytes (%) (Auto) 3.7 % Eosinophils (%) (Auto) 0.3 % Basophils (%) (Auto) 0.4 % Neutrophils # (Auto) 6.6 TH/MM3 Lymphocytes # (Auto) 1.2 TH/MM3 Monocytes # (Auto) 0.3 TH/MM3 Eosinophils # (Auto) 0.0 TH/MM3 Basophils # (Auto) 0.0 TH/MM3 CBC Comment DIFF FINAL Differential Comment Prothrombin Time 10.6 SEC Prothromb Time International Ratio 1.0 RATIO Activated Partial Thromboplast Time 26.1 SEC Blood Urea Nitrogen 18 MG/DL Creatinine 0.89 MG/DL Random Glucose 61 MG/DL Total Protein 7.1 GM/DL Albumin 2.9 GM/DL Calcium Level 8.3 MG/DL Alkaline Phosphatase 111 U/L Aspartate Amino Transf (AST/SGOT) 55 U/L Alanine Aminotransferase (ALT/SGPT) 60 U/L Total Bilirubin 0.2 MG/DL Sodium Level 144 MEQ/L Potassium Level 3.5 MEQ/L Chloride Level 109 MEQ/L Carbon Dioxide Level 27.0 MEQ/L Anion Gap 8 MEQ/L Estimat Glomerular Filtration Rate 68 ML/MIN Lipase 85 U/L MDM Medical Record Reviewed: Yes Supervised Visit with ARTIE: No Interpretation(s) Last Impressions Abdomen/Pelvis CT 05/01/17 1800 Signed Impressions: Service Date/Time: Monday, May 01, 2017 20:40 - CONCLUSION: 1. Heterogeneous appearance of the gallbladder suggesting gallstones and possible wall thickening. This finding could be evaluated with greater sensitivity and specificity using ultrasound. 2. Prominent amount of stool in the colon. Diffusely distended colon. No evidence of small bowel obstruction. 3. Fat-containing midline lower anterior abdominal wall hernia measuring 8 cm. 4. Patchy consolidation at the lung bases. Jeremy Nunes MD Narrative Course 47-year-old female presents to the emergency department with history of mental retardation from [facility] for evaluation constipation 3 days. Patient given Ativan 1 mg IM. Manual disimpaction is attempted. I was able to obtain a large metal stool. The stool was very dark and tarry. Hemoccult is positive. Patient is given fleets enema. IV access established. CBC, CMP, lipase, PTT, PT/INR, type and screen, CT abdomen/pelvis with IV contrast are ordered and pending. My attending physician, Dr. Bynum, gave patient ketamine and performed conscious sedation before CT due to patient not being able to cooperate. Please see her note for further details. CBC shows hemoglobin 9.7 hematocrit 30.4. CMP shows elevated liver enzymes with an AST 55, ALT 60. Lipase is 85. Coags are unremarkable.. CT abdomen/ pelvis shows heterogeneous appearance of the gallbladder suggesting gallstones and possible wall thickening. This finding could be evaluated with greater sensitivity and specificity using ultrasound; Prominent amount of stool in the colon. Diffusely distended colon. No evidence of small bowel obstruction; Fat- containing midline lower anterior abdominal wall hernia measuring 8 cm; Patchy consolidation at the lung bases. I discussed the case with my attending physician, Dr. Bynum. Patient will be admitted for GI bleed, constipation as she does need bowel cleansing due to constipation. HemaPrompt Test Point of Care Internal Pos. & Neg. Controls: Passed Fecal Specimen Occult Blood: Positive Diagnosis Primary Impression: GI bleed Qualified Codes: K92.2 - Gastrointestinal hemorrhage, unspecified Additional Impression: Constipation Qualified Codes: K59.00 - Constipation, unspecified Admitting Information Admitting Physician Requests: Lupis Armenta May 01, 2017 17:18
[2017-05-01] MEDS ORDERED: SODIUM CHLORIDE 0.9% FLUSH 10 ML FLUSH IV FLUSH PRN ×2 (18:00→21:30)
[2017-05-01] MEDS ORDERED: SODIUM CHLORID 0.9% 500 ML INJ 500 ML IV ONE (18:00)
[2017-05-01] MEDS ORDERED: SOD PHOSPHATE/SOD BIPHOSPHATE (ADULT) ENEMA 133ML RECTAL ONE (18:00)
[2017-05-01 19:04] LABS: AUTOMATED NEUTROPHIL # 6.6 TH/MM3 (1.8-7.7); BASOPHIL % 0.4 % (0.0-2.0); EOSINOPHIL % 0.3 % (0.0-4.0); HEMATOCRIT 30.4 % (35.0-46.0); HEMO FLAGS DIFF FINAL; LYMPH % 14.6 % (9.0-44.0); LYMPHOCYTE # 1.2 TH/MM3 (1.0-4.8); MEAN CELL VOLUME 104.5 FL (80.0-100.0); MEAN CORPUSCULAR HEMOGLOBIN 33.4 PG (27.0-34.0); MONO % 3.7 % (0.0-8.0); PLATELET COUNT 186 TH/MM3 (150-450); RED BLOOD COUNT 2.91 MIL/MM3 (4.00-5.30); RED CELL DISTRIBUTION WIDTH 19.1 % (11.6-17.2); WHITE BLOOD COUNT 8.1 TH/MM3 (4.0-11.0)
[2017-05-01 19:14] LABS: APTT (PATIENT) 26.1 SEC (24.3-30.1); PROTHROMBIN TIME - PATIENT 10.6 SEC (9.8-11.6)
[2017-05-01 19:25] LABS: ALT (GPT) 60 U/L (10-53); ANION GAP 8 MEQ/L (5-15); AST (GOT) 55 U/L (15-37); BLOOD UREA NITROGEN 18 MG/DL (7-18); CHLORIDE 109 MEQ/L (98-107); GLOMERULAR FILTRATION RATE 68 ML/MIN (>89); POTASSIUM 3.5 MEQ/L (3.5-5.1); SODIUM (NA) 144 MEQ/L (136-145)
[2017-05-01 19:28] LABS: ALKALINE PHOSPHATASE 111 U/L (45-117); TOTAL BILIRUBIN ADULT 0.2 MG/DL (0.2-1.0)
[2017-05-01] MEDS ORDERED: LORazepam 2 MG/ML VIAL IV PUSH ONE (20:15)
[2017-05-01] MEDS ORDERED: KETAMINE HCL 500 MG/10 ML VIAL IV SCH (20:15)
[2017-05-01] MEDS ORDERED: IOHEXOL 350 MG/ML 10 ML VIAL (for RAD DIAG) IVCONTRAST ONE (20:51)
--- NOTE | 2017-05-01 20:57 | PD ---
Physical Exam Date Seen by Provider: May 01, 2017 Time Seen by Provider: 20:40 Narrative This is a patient with Spanish syndrome needed to have a CT of her abdomen for evaluation of Hemoccult positive stools. She was not mentally capable of cooperating for the exam. Data Data Last Documented VS Vital Signs Date Time Temp Pulse Resp B/P (MAP) Pulse Ox O2 Delivery O2 Flow Rate FiO2 05/01/17 19:41 18 Room Air 05/01/17 18:55 98.2 89 98 Orders Orders Lorazepam Inj (Ativan Inj) (05/01/17 17:15) Fleets Enema (Adult) (Fleets Enema (Adul (05/01/17 18:00) Complete Blood Count With Diff (05/01/17 18:00) Comprehensive Metabolic Panel (05/01/17 18:00) Lipase (05/01/17 18:00) Prothrombin Time / Inr (Pt) (05/01/17 18:00) Act Partial Throm Time (Ptt) (05/01/17 18:00) Ct Abd/Pel W Iv Contrast(Rout) (05/01/17 18:00) Iv Access Insert/Monitor (05/01/17 18:00) Ecg Monitoring (05/01/17 18:00) Oximetry (05/01/17 18:00) Sodium Chloride 0.9% Flush (Ns Flush) (05/01/17 18:00) Type And Screen (05/01/17 18:00) Sodium Chlorid 0.9% 500 Ml Inj (Ns 500 M (05/01/17 18:00) Ketamine Inj (Ketalar Inj) (05/01/17 20:15) Lorazepam Inj (Ativan Inj) (05/01/17 20:15) Iohexol 350 Inj (Omnipaque 350 Inj) (05/01/17 20:51) Labs Laboratory Tests Test 05/01/17 18:44 White Blood Count 8.1 TH/MM3 Red Blood Count 2.91 MIL/MM3 Hemoglobin 9.7 GM/DL Hematocrit 30.4 % Mean Corpuscular Volume 104.5 FL Mean Corpuscular Hemoglobin 33.4 PG Mean Corpuscular Hemoglobin Concent 32.0 % Red Cell Distribution Width 19.1 % Platelet Count 186 TH/MM3 Mean Platelet Volume 10.8 FL Neutrophils (%) (Auto) 81.0 % Lymphocytes (%) (Auto) 14.6 % Monocytes (%) (Auto) 3.7 % Eosinophils (%) (Auto) 0.3 % Basophils (%) (Auto) 0.4 % Neutrophils # (Auto) 6.6 TH/MM3 Lymphocytes # (Auto) 1.2 TH/MM3 Monocytes # (Auto) 0.3 TH/MM3 Eosinophils # (Auto) 0.0 TH/MM3 Basophils # (Auto) 0.0 TH/MM3 CBC Comment DIFF FINAL Differential Comment Prothrombin Time 10.6 SEC Prothromb Time International Ratio 1.0 RATIO Activated Partial Thromboplast Time 26.1 SEC Blood Urea Nitrogen 18 MG/DL Creatinine 0.89 MG/DL Random Glucose 61 MG/DL Total Protein 7.1 GM/DL Albumin 2.9 GM/DL Calcium Level 8.3 MG/DL Alkaline Phosphatase 111 U/L Aspartate Amino Transf (AST/SGOT) 55 U/L Alanine Aminotransferase (ALT/SGPT) 60 U/L Total Bilirubin 0.2 MG/DL Sodium Level 144 MEQ/L Potassium Level 3.5 MEQ/L Chloride Level 109 MEQ/L Carbon Dioxide Level 27.0 MEQ/L Anion Gap 8 MEQ/L Estimat Glomerular Filtration Rate 68 ML/MIN Lipase 85 U/L MDM Supervised Visit with ARTIE: Yes Procedures Procedure Narrative After the risks and benefits were discussed the following procedure was performed: MODERATE SEDATION: The patient was placed on a cardiac monitor technician and pulse oximetry. An ambu bag and suction was immediately available at bedside. The patient was monitored by the nurse. Oxygen saturation , heart rate and blood pressure were monitored. Procedural sedation was acheived using Ativan 2 mg IV and ketamine 100 mg IV. The patient was observed until awake and alert. Procedural Sedation time in attendance was 20 minutes. Tereza Bynum MD May 01, 2017 20:57
--- NOTE | 2017-05-01 21:05 | RADRPT ---
EXAM DATE/TIME: 05/01/2017 20:40 [facility] COMPARISON: No previous studies available for comparison. INDICATIONS : Constipation for three days. IV CONTRAST: 75 cc Omnipaque 350 (iohexol) IV ORAL CONTRAST: No oral contrast ingested. RADIATION DOSE: 11.62 CTDIvol (mGy) MEDICAL HISTORY : Seizures. SURGICAL HISTORY : GI surgery. ENCOUNTER: Initial ACUITY: 3 days PAIN SCALE: Non-responsive LOCATION: abdomen TECHNIQUE: Volumetric scanning of the abdomen and pelvis was performed. Using automated exposure control and ad justment of the mA and/or kV according to patient size, radiation dose was kept as low as reasonably achievable to obtain optimal diagnostic quality images. DICOM format image data is available electro nically for review and comparison. FINDINGS: LOWER LUNGS: Patchy consolidation/atelectasis in the right middle lobe, lingula, and left lower lobe posteriorly. LIVER: Heterogeneous appearance of the gallbladder suggesting cholelithiasis and possible wall thickening. L iver is within normal limits. SPLEEN: Normal size without lesion. PANCREAS: Within normal limits. KIDNEYS: Normal in size and shape. There is no mass, stone or hydronephrosis. ADRENAL GLANDS: Within normal limits. VASCULAR: There is no aortic aneurysm. BOWEL/MESENTERY: Small to moderate-sized hiatal hernia. Prominent amount of stool in the colon. Colon is diffusely dis tended measuring up to 10 cm in diameter. Appendix is not identified. No free air or free fluid. No s mall bowel dilatation. ABDOMINAL WALL: Fact containing midline anterior abdominal wall hernia measuring 7.9 cm x 4.8 cm. RETROPERITONEUM: There is no lymphadenopathy. BLADDER: No wall thickening or mass. REPRODUCTIVE: Within normal limits. INGUINAL: There is no lymphadenopathy or hernia. MUSCULOSKELETAL: Prominent lumbar scoliosis and degenerative findings. CONCLUSION: 1. Heterogeneous appearance of the gallbladder suggesting gallstones and possible wall thickening. Th is finding could be evaluated with greater sensitivity and specificity using ultrasound. 2. Prominent amount of stool in the colon. Diffusely distended colon. No evidence of small bowel obst ruction. 3. Fat-containing midline lower anterior abdominal wall hernia measuring 8 cm. 4. Patchy consolidation at the lung bases. Jeremy Nunes MD on May 01, 2017 at 20:56 Board Certified Radiologist. This report was verified electronically.
[2017-05-01] MEDS ORDERED: SENNOSIDES 8.6 MG TAB PO PRN (21:30)
[2017-05-01] MEDS ORDERED: ONDANSETRON HCL 4 MG/2 ML VIAL IVP PRN (21:30)
[2017-05-01] MEDS ORDERED: MORPHINE SULFATE 4 MG/ML INJ IV PUSH PRN (21:30)
[2017-05-01] MEDS ORDERED: ACETAMINOPHEN 325 MG TAB PO PRN (21:30)
[2017-05-01] MEDS ORDERED: ALBUTEROL SULFATE 90 MCG/ACT HFA 8 GM INHALER INH PRN (21:30)
[2017-05-01] MEDS ORDERED: MAGNESIUM HYDROXIDE SUSP 30 ML CUP PO PRN (21:30)
[2017-05-01] MEDS ORDERED: BISACODYL 10 MG SUPP RECTAL PRN (21:30)
[2017-05-01] MEDS ORDERED: ACETAMINOPHEN/HYDROcodone 325 MG/5 MG TAB PO PRN (21:30)
--- NOTE | 2017-05-01 21:30 | HHI.HP ---
[facility] Service [place] [facility] Primary Care Physician Néstor Correia MD (Paul) Admission Diagnosis constipation, GI Bleed Diagnoses: (1) Constipation Diagnosis: Principal (2) GI bleed Diagnosis: Principal (3) Dehydration Diagnosis: Principal (4) Down syndrome Diagnosis: Principal Travel History International Travel<30 Days: No Contact w/Intl Traveler <30 Da: No Traveled to Known Affected Are: No History of Present Illness This is a 47-year-old female with Down's Syndrome who was sent to the ER from Nursing Home secondary to constipation. Pt unable to provide history due to mental retardation, RN from facility at bedside providing history. States pt w / obvious fecal impaction, attempted disimpaction but unsuccessful, notes pt seems uncomfortable. Denies fever, chills or diarrhea, but notes few episodes of vomiting today. On arrival, BP 130/61, HR 89, O2 sat 98% on RA, Afebrile. Hemoglobin 9.7, previously 11.3 on 11/17/16. Chemistry unremarkable except for GFR 68. CT Abd/Pelvis w/ gallstones/possible wall thickening, prominent stool in colon w/ diffusely distended colon, no evidence of obstruction. S/p partial disimpaction in ER. Hemoccult +. Review of Systems ROS: Unable to obtain secondary to mental retardation. Past Family Social History Past Medical History PMH: Down's Syndrome Past Surgical History PAST SURGICAL HISTORY: Abdominal Surgery Allergies: Coded Allergies: No Known Allergies (Unverified Adverse Reaction, Unknown, 05/01/17) Family History PAST FAMILY HISTORY: Reviewed. No h/o DM or CAD Social History PAST SOCIAL HISTORY: Negative for alcohol, tobacco or drugs. Physical Exam Vital Signs Vital Signs Date Time Temp Pulse Resp B/P (MAP) Pulse Ox O2 Delivery O2 Flow Rate FiO2 05/01/17 20:45 100 4.00 05/01/17 20:45 100 Nasal Cannula 4.00 05/01/17 19:41 18 Room Air 05/01/17 18:55 98.2 89 18 130/61 (84) 98 Room Air 05/01/17 15:08 97.9 91 20 135/73 (93) 97 Room Air Physical Exam PE: GENERAL: Middle-aged white female in no acute distress, +Downs features. RN from assisted at bedside. Exam difficult HEENT: PERRLA, EOMI. No scleral icterus or conjunctival pallor. No lid lag or facial droop. CARDIOVASCULAR: Regular rate and rhythm. No obvious murmurs to auscultation. No chest tenderness to palpation. RESPIRATORY: No obvious rhonchi or wheezing. Clear to auscultation. Breath sounds equal bilaterally. GASTROINTESTINAL: Abdomen soft, non-tender, nondistended. BS normal. MUSCULOSKELETAL: Extremities without clubbing, cyanosis, or edema. No obvious deformities. NEUROLOGICAL: Awake, alert and oriented x4. No focal neurologic deficits. Moving both upper and lower extremities spontaneously. Laboratory Laboratory Tests Test 05/01/17 18:44 White Blood Count 8.1 Red Blood Count 2.91 Hemoglobin 9.7 Hematocrit 30.4 Mean Corpuscular Volume 104.5 Mean Corpuscular Hemoglobin 33.4 Mean Corpuscular Hemoglobin Concent 32.0 Red Cell Distribution Width 19.1 Platelet Count 186 Mean Platelet Volume 10.8 Neutrophils (%) (Auto) 81.0 Lymphocytes (%) (Auto) 14.6 Monocytes (%) (Auto) 3.7 Eosinophils (%) (Auto) 0.3 Basophils (%) (Auto) 0.4 Neutrophils # (Auto) 6.6 Lymphocytes # (Auto) 1.2 Monocytes # (Auto) 0.3 Eosinophils # (Auto) 0.0 Basophils # (Auto) 0.0 CBC Comment DIFF FINAL Differential Comment Prothrombin Time 10.6 Prothromb Time International Ratio 1.0 Activated Partial Thromboplast Time 26.1 Blood Urea Nitrogen 18 Creatinine 0.89 Random Glucose 61 Total Protein 7.1 Albumin 2.9 Calcium Level 8.3 Alkaline Phosphatase 111 Aspartate Amino Transf (AST/SGOT) 55 Alanine Aminotransferase (ALT/SGPT) 60 Total Bilirubin 0.2 Sodium Level 144 Potassium Level 3.5 Chloride Level 109 Carbon Dioxide Level 27.0 Anion Gap 8 Estimat Glomerular Filtration Rate 68 Lipase 85 Result Diagram: 05/01/17184305/01/171843 Caprini VTE Risk Assessment Caprini VTE Risk Assessment: No/Low Risk (score <= 1) Caprini Risk Assessment Model Point Value = 1 Point Value = 2 Point Value = 3 Point Value = 5 Age 41-60 Minor surgery BMI > 25 kg/m2 Swollen legs Varicose veins or History of unexplained or recurrent spontaneous Oral contraceptives or hormone replacement Sepsis (< 1 month) Serious lung disease, including pneumonia (< 1 month) Abnormal pulmonary function Acute myocardial infarction Congestive heart failure (< 1 month) History of inflammatory bowel disease Medical patient at bed rest Age 61-74 Arthroscopic surgery Major open surgery (> 45 min) Laparoscopic surgery (> 45 min) Malignancy Confined to bed (> 72 hours) Immobilizing plaster cast Central venous access Age >= 75 History of VTE Family history of VTE Factor V Leiden Prothrombin [id number] Lupus anticoagulant Anticardiolipin antibodies Elevated serum homocysteine Heparin-induced thrombocytopenia Other congenital or acquired thrombophilia Stroke (< 1 month) Elective arthroplasty Hip, pelvis, or leg fracture Acute spinal cord injury (< 1 month) Prophylaxis Regimen Total Risk Factor Score Risk Level Prophylaxis Regimen 0-1 Low Early ambulation 2 Moderate Order ONE of the following: *Sequential Compression Device (SCD) *Heparin 5000 units SQ BID 3-4 Higher Order ONE of the following medications: *Heparin 5000 units SQ TID *Enoxaparin/Lovenox 40 mg SQ daily (WT < 150 kg, CrCl > 30 mL/min) *Enoxaparin/Lovenox 30 mg SQ daily (WT < 150 kg, CrCl > 10-29 mL/min) *Enoxaparin/Lovenox 30 mg SQ BID (WT < 150 kg, CrCl > 30 mL/min) AND/OR *Sequential Compression Device (SCD) 5 or more Highest Order ONE of the following medications: *Heparin 5000 units SQ TID (Preferred with Epidurals) *Enoxaparin/Lovenox 40 mg SQ daily (WT < 150 kg, CrCl > 30 mL/min) *Enoxaparin/Lovenox 30 mg SQ daily (WT < 150 kg, CrCl > 10-29 mL/min) *Enoxaparin/Lovenox 30 mg SQ BID (WT < 150 kg, CrCl > 30 mL/min) AND *Sequential Compression Device (SCD) Assessment and Plan Problem List: (1) Constipation ICD Code: K59.00 - Constipation, unspecified Status: Acute (2) GI bleed ICD Code: K92.2 - Gastrointestinal hemorrhage, unspecified Status: Acute (3) Dehydration ICD Code: E86.0 - Dehydration (4) Down syndrome ICD Code: Q90.9 - Down syndrome, unspecified Status: Acute Assessment and Plan A/P: 1. Constipation: RN from Nursing Home reports no BM x3 days, fecal impaction noted, partially disimpacted in ER. CT Abd/Pelvis w/ gallstones, possible wall thickening and prominent amount of stool w/ diffusely distended colon, images reviewed by me. S/p Enema in ER, IVF for hydration, Lactulose, Senna-S, Suppository prn. 2. GI Bleed: Hemoccult + on exam, +Anemia, Hgb 9.7, previously 11.7 on . Repeat labs in am. 3. Dehydration: GFR 68, IVF for hydration, repeat labs in am. 4. Down's Syndrome: Mental Retardation w/ h/o disruptive behavior, resume home medications. Sitter. Ativan prn if needed. 5. DVT Prophylaxis: SCD/Teds. 6. Social work for d/c planning as needed. 7. Case discussed w/ ER physician at length. Problem Qualifiers (1) Constipation: Qualified Codes: K59.00 - Constipation, unspecified (2) GI bleed: Qualified Codes: K92.2 - Gastrointestinal hemorrhage, unspecified Melanie Resendez MD May 01, 2017 21:30
[2017-05-01] MEDS: SODIUM CHLOR 0.9% 1000 ML INJ 1,000 ML IV SCH (22:16)
[2017-05-01] MEDS: DOCUSATE SODIUM 50 MG/SENNA 8.6 MG TAB PO SCH (23:51)
[2017-05-01] MEDS: LACTULOSE SYRUP 20 GM/30 ML CUP PO SCH (23:51)
[2017-05-02] MEDS ORDERED: SERO100T PO
[2017-05-02 03:45] VITALS: BP 128/74; PULSE 78; RESP 18; TEMP 98.8; O2SAT 98
[2017-05-02] MEDS: SODIUM CHLOR 0.9% 1000 ML INJ 1,000 ML IV SCH ×4 (05:33→23:39)
[2017-05-02] MEDS: LACTULOSE SYRUP 20 GM/30 ML CUP PO SCH ×3 (05:43→21:58)
[2017-05-02 05:59] LABS: AUTOMATED NEUTROPHIL # 4.8 TH/MM3 (1.8-7.7); BASOPHIL % 0.3 % (0.0-2.0); EOSINOPHIL # 0.1 TH/MM3 (0-0.4); EOSINOPHIL % 1.7 % (0.0-4.0); HEMATOCRIT 29.7 % (35.0-46.0); HEMO FLAGS DIFF FINAL; LYMPH % 15.9 % (9.0-44.0); MEAN CELL VOLUME 105.1 FL (80.0-100.0); MEAN CORPUSCULAR HEMOGLOBIN 33.8 PG (27.0-34.0); MEAN CORPUSCULAR HGB CONC 32.2 % (32.0-36.0); NEUT % 76.1 % (16.0-70.0); PLATELET COUNT 172 TH/MM3 (150-450); RED BLOOD COUNT 2.83 MIL/MM3 (4.00-5.30); RED CELL DISTRIBUTION WIDTH 19.6 % (11.6-17.2); WHITE BLOOD COUNT 6.4 TH/MM3 (4.0-11.0)
[2017-05-02 06:24] LABS: ANION GAP 9 MEQ/L (5-15); AST (GOT) 49 U/L (15-37); BICARBONATE 27.2 MEQ/L (21.0-32.0); BLOOD UREA NITROGEN 11 MG/DL (7-18); CHLORIDE 106 MEQ/L (98-107); GLOMERULAR FILTRATION RATE 72 ML/MIN (>89); POTASSIUM 3.5 MEQ/L (3.5-5.1); SODIUM (NA) 142 MEQ/L (136-145)
[2017-05-02 06:26] LABS: ALT (GPT) 61 U/L (10-53)
[2017-05-02 06:27] LABS: ALKALINE PHOSPHATASE 134 U/L (45-117); TOTAL BILIRUBIN ADULT 0.2 MG/DL (0.2-1.0)
[2017-05-02 08:09] VITALS: BP 138/69; PULSE 75; RESP 16; TEMP 98; O2SAT 98
[2017-05-02] MEDS: SODIUM CHLORIDE 0.9% FLUSH 10 ML FLUSH IV FLUSH SCH ×2 (09:00→21:58)
[2017-05-02] MEDS: DOCUSATE SODIUM 50 MG/SENNA 8.6 MG TAB PO SCH ×2 (09:00→21:58)
[2017-05-02] MEDS ORDERED: DOCUSATE SODIUM 50 MG/SENNA 8.6 MG TAB PO SCH (09:00)
[2017-05-02] MEDS: ESCITALOPRAM OXALATE 20 MG TAB PO SCH (10:04)
[2017-05-02] MEDS: ARIPiprazole 30 MG TAB PO SCH (10:05)
[2017-05-02] MEDS: OXcarbazepine 600 MG TAB PO SCH ×2 (10:05→21:58)
[2017-05-02 11:21] LABS: FERRITIN 66 NG/ML (8-252); TRANSFERRIN IRON PROFILE 254 MG/DL (200-360)
--- NOTE | 2017-05-02 14:45 | HHI.PR ---
Subjective Remarks Patient is nonverbal, however she would say yes or no randomly, eventually she had 3 bowel movements today as per the nurse no other issue going on Objective Vitals Vital Signs Date Time Temp Pulse Resp B/P (MAP) Pulse Ox O2 Delivery O2 Flow Rate FiO2 05/02/17 08:09 98.0 75 16 138/69 (92) 98 05/02/17 03:45 98.8 78 18 128/74 (92) 98 05/02/17 00:00 05/01/17 23:32 70 16 103/49 (67) 98 Room Air 05/01/17 22:15 85 18 113/54 (73) 97 Nasal Cannula 2.00 05/01/17 21:31 91 18 113/55 (74) 100 Room Air 05/01/17 20:45 100 4.00 05/01/17 20:45 100 Nasal Cannula 4.00 05/01/17 19:41 18 Room Air 05/01/17 18:55 98.2 89 18 130/61 (84) 98 Room Air 05/01/17 15:08 97.9 91 20 135/73 (93) 97 Room Air I/O 05/01/17 05/01/17 05/01/17 05/02/17 05/02/17 05/02/17 07:00 15:00 23:00 07:00 15:00 23:00 Intake Total 500 ml Balance 500 ml Intake IV Total 500 ml # Bowel Movements 2 Result Diagram: 05/02/1743905/02/17439 Objective Remarks GENERAL: This is a middle-age down syndrome patient, in no apparent distress. SKIN: No rashes, warm and dry HEAD: Atraumatic. Normocephalic. EYES: Pupils equal round and reactive. Extraocular motions intact. No scleral icterus. ENT: Nose without bleeding, or drainage, Airway patent. NECK: Trachea midline. Supple CARDIOVASCULAR: Regular rate and rhythm positive systolic murmur RESPIRATORY: Fair air entry bilaterally. No wheezes, rales, or rhonchi. GASTROINTESTINAL: Abdomen soft, non-tender, nondistended. Positive bowel sounds MUSCULOSKELETAL: Extremities without clubbing, cyanosis, or edema. Pedal pulses appreciated NEUROLOGICAL: Awake and alert. Moves all extremity. Normal speech.no focal neurological deficit A/P Problem List: (1) Constipation ICD Code: K59.00 - Constipation, unspecified Status: Acute (2) GI bleed ICD Code: K92.2 - Gastrointestinal hemorrhage, unspecified Status: Acute (3) Dehydration ICD Code: E86.0 - Dehydration (4) Down syndrome ICD Code: Q90.9 - Down syndrome, unspecified Status: Acute Assessment and Plan - Constipation: Resolved patient had 3 bowel movements today, initially RN from [facility] reports no BM x3 days, fecal impaction noted, partially disimpacted in ER. CT Abd/Pelvis w/ gallstones, possible wall thickening and prominent amount of stool w/ diffusely distended colon, images reviewed by me. S/p Enema in ER, IVF for hydration, Lactulose, Senna-S, Suppository prn. - GI Bleed: Hemoccult + on exam, +Anemia, Hgb 9.7, previously 11.7 on . Today 9.6 on 05/02 with increased MCV however low iron on indicis >> Consult GI and monitor H&H, check folate and methylmalonic acid - elevated LFT W thickening gallbladder on CT abd: GI consulted - Dehydration: GFR 68, IVF for hydration, monitor BMP - Down's Syndrome: Mental Retardation w/ h/o disruptive behavior, resume home medications. Sitter. Ativan prn if needed. - DVT Prophylaxis: SCD/Teds. Problem Qualifiers (1) Constipation: Qualified Codes: K59.00 - Constipation, unspecified (2) GI bleed: Qualified Codes: K92.2 - Gastrointestinal hemorrhage, unspecified Ele Tripp MD May 02, 2017 14:44
--- NOTE | 2017-05-02 15:22 | PD.CONS ---
HPI History of Present Illness This is a 47 year old with a history of Down's Syndrome, who was brought [facility] the emergency room [facility] her [facility] for evaluation of constipation and possible fecal impaction. The patient is a poor historian. She cannot state how often she moves her bowels or if she has had issues with this in the past. She does have some nausea. She denies abdominal pain at this time. She reports that she eats well without difficulty. CT Scan abdomen and pelvis (05/01/17)---> Heterogeneous appearance of the gallbladder suggesting gallstones and possible wall thickening. This finding could be evaluated with greater sensitivity and specificity using ultrasound. Prominent amount of stool in the colon. Diffusely distended colon. No evidence of small bowel obstruction. Fat- containing midline lower anterior abdominal wall hernia measuring 8 cm. Patchy consolidation at the lung bases. She was disimpacted, given enemas, and was started on Lactulose and Senokot. The nurse reports that she has had multiple bowel movements. The initial bowel movement was large and hard and she then had several loose stools afterwards. (Estefania Jean-Baptiste) PFSH Past Medical History Down's Syndrome Anemia Hyperlipidemia Past Surgical History Abdominal Surgery (Estefania Jean-Baptiste) Coded Allergies: No Known Allergies (Unverified Adverse Reaction, Unknown, 05/01/17) Medications Allergies Coded Allergies Type Severity Reaction Last Updated Verified No Known Allergies Adverse Reaction Unknown 05/01/17 No Active Scripts Medications Dose Route/Sig Max Daily Dose Days Date Category Seroquel (Quetiapine Fumarate) 100 Mg Tab 100 Mg PO BID 05/02/17 Reported Ventolin Hfa 18 GM Inh (Albuterol Sulfate) 90 Mcg/Act Aer 2 Puff INH Q6H PRN 10/15/16 Rx Calcium (Calcium Carbonate) 600 Mg Tab 1,200 Mg PO BID 05/25/16 Reported Zocor (Simvastatin) 10 Mg Tab 10 Mg PO HS 04/19/16 Reported K-Tab (Potassium Chloride) 10 Meq Tab 10 Meq PO DAILY 04/19/16 Reported Trileptal (Oxcarbazepine) 600 Mg Tab 600 Mg PO BID 04/19/16 Reported Lasix (Furosemide) 40 Mg Tab 40 Mg PO DAILY 04/19/16 Reported Lexapro (Escitalopram Oxalate) 20 Mg Tab 20 Mg PO DAILY 04/19/16 Reported Abilify (Aripiprazole) 30 Mg Tab 30 Mg PO DAILY 04/19/16 Reported Family History Noncontributory Social History Negative for alcohol, tobacco or drugs. Resides in a prison (Estefania Jean-Baptiste) Review of Systems Constitutional: COMPLAINS OF: Fatigue Gastrointestinal: COMPLAINS OF: Constipation, Nausea, Vomiting ROS Poor historian (Estefania Jean-Baptiste) GI Exam Vitals I&O Vital Signs Date Time Temp Pulse Resp B/P (MAP) Pulse Ox O2 Delivery O2 Flow Rate FiO2 05/02/17 08:09 98.0 75 16 138/69 (92) 98 05/02/17 03:45 98.8 78 18 128/74 (92) 98 05/02/17 00:00 05/01/17 23:32 70 16 103/49 (67) 98 Room Air 05/01/17 22:15 85 18 113/54 (73) 97 Nasal Cannula 2.00 05/01/17 21:31 91 18 113/55 (74) 100 Room Air 05/01/17 20:45 100 4.00 05/01/17 20:45 100 Nasal Cannula 4.00 05/01/17 19:41 18 Room Air 05/01/17 18:55 98.2 89 18 130/61 (84) 98 Room Air I/O 05/01/17 05/01/17 05/01/17 05/02/17 05/02/17 05/02/17 07:00 15:00 23:00 07:00 15:00 23:00 Intake Total 500 ml Balance 500 ml Intake IV Total 500 ml # Bowel Movements 2 Imaging Last Impressions Abdomen/Pelvis CT 05/01/17 1800 Signed Impressions: Service Date/Time: Monday, May 01, 2017 20:40 - CONCLUSION: 1. Heterogeneous appearance of the gallbladder suggesting gallstones and possible wall thickening. This finding could be evaluated with greater sensitivity and specificity using ultrasound. 2. Prominent amount of stool in the colon. Diffusely distended colon. No evidence of small bowel obstruction. 3. Fat-containing midline lower anterior abdominal wall hernia measuring 8 cm. 4. Patchy consolidation at the lung bases. Jeremy Nunes MD Laboratory Test 05/01/17 18:44 05/02/17 04:40 White Blood Count 8.1 TH/MM3 6.4 TH/MM3 Red Blood Count 2.91 MIL/MM3 2.83 MIL/MM3 Hemoglobin 9.7 GM/DL 9.6 GM/DL Hematocrit 30.4 % 29.7 % Mean Corpuscular Volume 104.5 FL 105.1 FL Mean Corpuscular Hemoglobin 33.4 PG 33.8 PG Mean Corpuscular Hemoglobin Concent 32.0 % 32.2 % Red Cell Distribution Width 19.1 % 19.6 % Platelet Count 186 TH/MM3 172 TH/MM3 Mean Platelet Volume 10.8 FL 11.1 FL Neutrophils (%) (Auto) 81.0 % 76.1 % Lymphocytes (%) (Auto) 14.6 % 15.9 % Monocytes (%) (Auto) 3.7 % 6.0 % Eosinophils (%) (Auto) 0.3 % 1.7 % Basophils (%) (Auto) 0.4 % 0.3 % Neutrophils # (Auto) 6.6 TH/MM3 4.8 TH/MM3 Lymphocytes # (Auto) 1.2 TH/MM3 1.0 TH/MM3 Monocytes # (Auto) 0.3 TH/MM3 0.4 TH/MM3 Eosinophils # (Auto) 0.0 TH/MM3 0.1 TH/MM3 Basophils # (Auto) 0.0 TH/MM3 0.0 TH/MM3 CBC Comment DIFF FINAL DIFF FINAL Differential Comment Prothrombin Time 10.6 SEC Prothromb Time International Ratio 1.0 RATIO Activated Partial Thromboplast Time 26.1 SEC Blood Urea Nitrogen 18 MG/DL 11 MG/DL Creatinine 0.89 MG/DL 0.85 MG/DL Random Glucose 61 MG/DL 77 MG/DL Total Protein 7.1 GM/DL 7.0 GM/DL Albumin 2.9 GM/DL 2.8 GM/DL Calcium Level 8.3 MG/DL 8.4 MG/DL Alkaline Phosphatase 111 U/L 134 U/L Aspartate Amino Transf (AST/SGOT) 55 U/L 49 U/L Alanine Aminotransferase (ALT/SGPT) 60 U/L 61 U/L Total Bilirubin 0.2 MG/DL 0.2 MG/DL Sodium Level 144 MEQ/L 142 MEQ/L Potassium Level 3.5 MEQ/L 3.5 MEQ/L Chloride Level 109 MEQ/L 106 MEQ/L Carbon Dioxide Level 27.0 MEQ/L 27.2 MEQ/L Anion Gap 8 MEQ/L 9 MEQ/L Estimat Glomerular Filtration Rate 68 ML/MIN 72 ML/MIN Lipase 85 U/L Iron Level 27 MCG/DL Total Iron Binding Capacity 356 MCG/DL Percent Iron Saturation 7.6 % Ferritin 66 NG/ML Vitamin B12 Level 889 PG/ML Thyroid Stimulating Hormone 3rd Gen 6.680 uIU/ML Physical Examination HEENT: Normocephalic; atraumatic; no jaundice. CHEST: Resp. even/unlabored, clear throughout CARDIAC: RRR ABDOMEN: Soft, obese, nondistended, nontender; no hepatosplenomegaly; bowel sounds are present in all four quadrants. EXTREMITIES: No clubbing, cyanosis, or edema. SKIN: Normal; no rash; no jaundice. 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 Left eye droop (Estefania Jean-Baptiste) Assessment and Plan Plan ASSESSMENT: - Fecal Impaction, Constipation. CT Scan abdomen and pelvis (05/01/17)---> Heterogeneous appearance of the gallbladder suggesting gallstones and possible wall thickening. This finding could be evaluated with greater sensitivity and specificity using ultrasound. Prominent amount of stool in the colon. Diffusely distended colon. No evidence of small bowel obstruction. Fat-containing midline lower anterior abdominal wall hernia measuring 8 cm. Patchy consolidation at the lung bases. S/P Disimpaction, enema, now on lactulose, senokot. + BM- large hard stool followed by multiple loose stools. Will get KUB in am to compare, but seems to be doing better. Of note, TSH is elevated and this could be contributing to her constipation. - Elevated LFTs. Mild. CT noted Heterogeneous appearance of the gallbladder suggesting gallstones and possible wall thickening. RUQ US ordered. Hepatitis profile. - Cholelithiasis with possible wall thickening. + Nausea, but unclear if this was related to constipation/fecal impaction or other. RUQ US pending. - Elevated TSH, Down's syndrome. Per attending. PLAN: - Clear liquids - Cont. Lactulose, Senokot - RUQ US - Hepatitis profile - CBC, CMP in am - KUB in am to fu on colonic distention/constipation - Hemoccult stools - Supportive care - Further recommendations to follow based on results of above - Pt seen and examined by Dr. 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 Repeat kub ordered for the morning. U/S gall bladder also ordered. Will follow, thank you (Isha Vincent MD) Estefania Jean-Baptiste May 02, 2017 15:22 Isha Vincent MD May 02, 2017 16:10
[2017-05-02 15:58] VITALS: BP 125/68; PULSE 72; RESP 16; TEMP 98; O2SAT 97
[2017-05-02 20:17] VITALS: BP 129/58; PULSE 70; RESP 17; TEMP 98.8; O2SAT 97
[2017-05-02] MEDS: PRAVASTATIN SOD 20 MG TAB PO SCH (21:58)
[2017-05-02 23:22] VITALS: BP 128/56; PULSE 63; RESP 17; TEMP 98.5; O2SAT 99
[2017-05-03] MEDS: SODIUM CHLOR 0.9% 1000 ML INJ 1,000 ML IV SCH ×3 (04:33→20:06)
[2017-05-03] MEDS: LACTULOSE SYRUP 20 GM/30 ML CUP PO SCH ×3 (04:33→21:18)
[2017-05-03 06:33] LABS: AUTOMATED NEUTROPHIL # 1.6 TH/MM3 (1.8-7.7); BASOPHIL % 1.1 % (0.0-2.0); EOSINOPHIL # 0.2 TH/MM3 (0-0.4); EOSINOPHIL % 7.1 % (0.0-4.0); HEMATOCRIT 28.3 % (35.0-46.0); HEMO FLAGS DIFF FINAL; LYMPH % 30.2 % (9.0-44.0); LYMPHOCYTE # 0.9 TH/MM3 (1.0-4.8); MEAN CELL VOLUME 106.2 FL (80.0-100.0); MEAN CORPUSCULAR HEMOGLOBIN 34.1 PG (27.0-34.0); MEAN CORPUSCULAR HGB CONC 32.1 % (32.0-36.0); MONO % 10.1 % (0.0-8.0); NEUT % 51.5 % (16.0-70.0); PLATELET COUNT 149 TH/MM3 (150-450); RED BLOOD COUNT 2.66 MIL/MM3 (4.00-5.30); RED CELL DISTRIBUTION WIDTH 19.5 % (11.6-17.2); WHITE BLOOD COUNT 3.1 TH/MM3 (4.0-11.0)
[2017-05-03 06:52] LABS: ANION GAP 8 MEQ/L (5-15); AST (GOT) 46 U/L (15-37); BICARBONATE 25.7 MEQ/L (21.0-32.0); BLOOD UREA NITROGEN 4 MG/DL (7-18); CHLORIDE 107 MEQ/L (98-107); GLOMERULAR FILTRATION RATE 98 ML/MIN (>89); POTASSIUM 3.1 MEQ/L (3.5-5.1); SODIUM (NA) 141 MEQ/L (136-145)
[2017-05-03 06:53] LABS: ALT (GPT) 53 U/L (10-53)
[2017-05-03 06:56] LABS: ALKALINE PHOSPHATASE 100 U/L (45-117); TOTAL BILIRUBIN ADULT 0.2 MG/DL (0.2-1.0)
[2017-05-03 07:11] VITALS: BP 123/72; PULSE 69; RESP 16; TEMP 98; O2SAT 100
[2017-05-03] MEDS ORDERED: LORazepam 2 MG/ML VIAL IV PUSH PRN (08:15)
[2017-05-03] MEDS ORDERED: POTASSIUM CHLORIDE 20 MEQ CONTROLLED RELEASE TAB PO ONE (08:30)
[2017-05-03] MEDS: ARIPiprazole 30 MG TAB PO SCH (08:34)
[2017-05-03] MEDS: OXcarbazepine 600 MG TAB PO SCH ×2 (08:34→20:17)
[2017-05-03] MEDS: DOCUSATE SODIUM 50 MG/SENNA 8.6 MG TAB PO SCH ×2 (08:34→20:05)
[2017-05-03] MEDS: ESCITALOPRAM OXALATE 20 MG TAB PO SCH (08:34)
[2017-05-03] MEDS: SODIUM CHLORIDE 0.9% FLUSH 10 ML FLUSH IV FLUSH SCH ×2 (08:35→20:06)
[2017-05-03 09:41] LABS: MAGNESIUM 2.2 MG/DL (1.5-2.5)
[2017-05-03 11:52] VITALS: BP 136/62; PULSE 64; RESP 16; TEMP 97.6; O2SAT 97
[2017-05-03] MEDS ORDERED: LORazepam 2 MG/ML VIAL IV PUSH ONE (12:00)
--- NOTE | 2017-05-03 12:08 | RADRPT ---
EXAM DATE/TIME: 05/02/2017 22:54 [facility] COMPARISON: No previous studies available for comparison. INDICATIONS : Gallstones. MEDICAL HISTORY : Hypercholesterolemia. Blind left eye. Seizures. Pneumonia. Anemia. Hyperlipidemia. Down syndrome. Anxiety. SURGICAL HISTORY : Gastrointestinal surgery. ENCOUNTER: Initial ACUITY: 1 day PAIN SCORE: Nonresponsive. LOCATION: Right upper quadrant MEASUREMENTS: LIVER: 14.1 cm length COMMON DUCT: 6 mm RIGHT KIDNEY: 9.6 x 3.9 x 4.5 cm FINDINGS: LIVER: Normal echotexture without focal lesion or ductal dilatation. COMMON DUCT: No intraluminal mass or stone visualized. GALLBLADDER: there is a large shadowing gallstone occupying the majority of the lumen of the nondistended gallblad isis. PANCREAS: The visualized portions are within normal limits. RIGHT KIDNEY: No evidence of hydronephrosis, stone, or mass. CONCLUSION: Normal examination except for a large stone within a contracted gallbladder. The patient was not appr eciably tender over the gallbladder. Ab Mazariegos MD on May 03, 2017 at 12:06 Board Certified Radiologist. This report was verified electronically.
--- NOTE | 2017-05-03 12:38 | HHI.PR ---
Subjective Remarks Patient sitting in the bed awake alert She is nonverbal, hard to communicate Even hard to examine, patient grabbed on my finger and did not ago without the help of the sitter Objective Vitals Vital Signs Date Time Temp Pulse Resp B/P (MAP) Pulse Ox O2 Delivery O2 Flow Rate FiO2 05/03/17 11:52 97.6 64 16 136/62 (86) 97 05/03/17 07:11 98.0 69 16 123/72 (89) 100 05/02/17 23:22 98.5 63 17 128/56 (80) 99 05/02/17 20:17 98.8 70 17 129/58 (81) 97 05/02/17 15:58 98.0 72 16 125/68 (87) 97 I/O 05/02/17 05/02/17 05/02/17 05/03/17 05/03/17 05/03/17 07:00 15:00 23:00 07:00 15:00 23:00 Intake Total 1000 ml Balance 1000 ml Intake IV Total 1000 ml # Voids 3 # Bowel Movements 2 2 Result Diagram: 05/03/1751405/03/1715 Objective Remarks GENERAL: This is a middle-age down syndrome patient, in no apparent distress. SKIN: No rashes, warm and dry HEAD: Atraumatic. Normocephalic. EYES: Pupils equal round and reactive. Extraocular motions intact. No scleral icterus. ENT: Nose without bleeding, or drainage, Airway patent. NECK: Trachea midline. Supple CARDIOVASCULAR: Regular rate and rhythm positive systolic murmur RESPIRATORY: Fair air entry bilaterally. No wheezes, rales, or rhonchi. GASTROINTESTINAL: Abdomen soft, non-tender, nondistended. Positive bowel sounds MUSCULOSKELETAL: Extremities without clubbing, cyanosis, or edema. Pedal pulses appreciated NEUROLOGICAL: Awake and alert. Moves all extremity. Normal speech.no focal neurological deficit A/P Problem List: (1) Constipation ICD Code: K59.00 - Constipation, unspecified Status: Acute (2) GI bleed ICD Code: K92.2 - Gastrointestinal hemorrhage, unspecified Status: Acute (3) Dehydration ICD Code: E86.0 - Dehydration (4) Down syndrome ICD Code: Q90.9 - Down syndrome, unspecified Status: Acute Assessment and Plan - Constipation: Resolved patient had 3 bowel movements today, initially RN from [facility] reports no BM x3 days, fecal impaction noted, partially disimpacted in ER. CT Abd/Pelvis w/ gallstones, possible wall thickening and prominent amount of stool w/ diffusely distended colon, images reviewed by me. S/p Enema in ER, IVF for hydration, Lactulose, Senna-S, Suppository prn. - GI Bleed: Hemoccult + on exam, +Anemia, Hgb 9.7, previously 11.7 on . Today 9.6 on 05/02 with increased MCV however low iron on indicis >> Consult GI and monitor H&H, check folate and methylmalonic acid - elevated LFT W thickening gallbladder on CT abd: GI consulted , awaiting liver and gallbladder ultrasound - Dehydration: GFR 68, IVF for hydration, monitor BMP - Down's Syndrome: Mental Retardation w/ h/o disruptive behavior, resume home medications. Sitter. Ativan prn if needed. - DVT Prophylaxis: SCD/Teds. Problem Qualifiers (1) Constipation: Qualified Codes: K59.00 - Constipation, unspecified (2) GI bleed: Qualified Codes: K92.2 - Gastrointestinal hemorrhage, unspecified Ele Tripp MD May 03, 2017 12:38
--- NOTE | 2017-05-03 14:23 | RADRPT ---
EXAM DATE/TIME: 05/03/2017 13:37 [facility] COMPARISON: CT ABDOMEN & PELVIS W CONTRAST, May 01, 2017, 20:40. INDICATIONS : Abdominal distention. Constipation. MEDICAL HISTORY : Hypercholesterolemia. Blind left eye. Seizures. Pneumonia. Anemia. Hyperlipidemia. Down syndrome. Anx iety. SURGICAL HISTORY : Gastrointestinal surgery. ENCOUNTER: Subsequent ACUITY: 3 days PAIN SCORE: Non-responsive. LOCATION: entire abdomen. FINDINGS: [id number] amount of stool is seen throughout the colon. There are no dilated loops of bowel. N o significant free air or pneumatosis. No abnormal calcifications. There is redemonstration of promin ent S-shaped rotary thoracolumbar scoliosis. CONCLUSION: 1. [id number] colonic stool consistent with constipation. No dilated loops of bowel to suggest obstruction at this time. Arjun Granados MD on May 03, 2017 at 14:19 Board Certified Radiologist. This report was verified electronically.
--- NOTE | 2017-05-03 15:24 | HHI.GIFU ---
Subjective Remarks Pt resting in bed in NAD. No BM today but had multiple solid BM yesterday, a solid BM last night and subsequent loose stool. (Stephany Barkley) Objective Vitals I&O Vital Signs Date Time Temp Pulse Resp B/P (MAP) Pulse Ox O2 Delivery O2 Flow Rate FiO2 05/03/17 11:52 97.6 64 16 136/62 (86) 97 05/03/17 07:11 98.0 69 16 123/72 (89) 100 05/02/17 23:22 98.5 63 17 128/56 (80) 99 05/02/17 20:17 98.8 70 17 129/58 (81) 97 05/02/17 15:58 98.0 72 16 125/68 (87) 97 I/O 05/02/17 05/02/17 05/02/17 05/03/17 05/03/17 05/03/17 07:00 15:00 23:00 07:00 15:00 23:00 Intake Total 1000 ml Balance 1000 ml Intake IV Total 1000 ml # Voids 3 # Bowel Movements 2 2 Laboratory Laboratory Tests Test 05/02/17 15:25 05/02/17 16:55 05/03/17 05:15 Blood Smear Pathologist Review Folate GREATER THAN 20.0 Hepatitis A IgM Antibody NEGATIVE Hepatitis B Surface Antigen NEGATIVE Hepatitis B Core IgM Antibody NEGATIVE Hepatitis C Antibody NEGATIVE White Blood Count 3.1 Red Blood Count 2.66 Hemoglobin 9.1 Hematocrit 28.3 Mean Corpuscular Volume 106.2 Mean Corpuscular Hemoglobin 34.1 Mean Corpuscular Hemoglobin Concent 32.1 Red Cell Distribution Width 19.5 Platelet Count 149 Mean Platelet Volume 11.0 Neutrophils (%) (Auto) 51.5 Lymphocytes (%) (Auto) 30.2 Monocytes (%) (Auto) 10.1 Eosinophils (%) (Auto) 7.1 Basophils (%) (Auto) 1.1 Neutrophils # (Auto) 1.6 Lymphocytes # (Auto) 0.9 Monocytes # (Auto) 0.3 Eosinophils # (Auto) 0.2 Basophils # (Auto) 0.0 CBC Comment DIFF FINAL Differential Comment Blood Urea Nitrogen 4 Creatinine 0.65 Random Glucose 65 Total Protein 6.5 Albumin 2.7 Calcium Level 8.1 Magnesium Level 2.2 Alkaline Phosphatase 100 Aspartate Amino Transf (AST/SGOT) 46 Alanine Aminotransferase (ALT/SGPT) 53 Total Bilirubin 0.2 Sodium Level 141 Potassium Level 3.1 Chloride Level 107 Carbon Dioxide Level 25.7 Anion Gap 8 Estimat Glomerular Filtration Rate 98 Date/Time Source Procedure Growth Status 05/02/17 19:56 Stool Stool Stool Occult Blood (LOIS) - Final HEMOCCULT NEGATIVE Complete Imaging Last Impressions Abdomen X-Ray 05/03/17 0600 Signed Impressions: Service Date/Time: Wednesday, May 03, 2017 13:37 - CONCLUSION: 1. Pvfe-[id number] colonic stool consistent with constipation. No dilated loops of bowel to suggest obstruction at this time. Arjun Granados MD Gall Bladder Ultrasound 05/03/17 0000 Signed Impressions: Service Date/Time: Tuesday, May 02, 2017 22:54 - CONCLUSION: Normal examination except for a large stone within a contracted gallbladder. The patient was not appreciably tender over the gallbladder. Ab Mazariegos MD Abdomen/Pelvis CT 05/01/17 1800 Signed Impressions: Service Date/Time: Monday, May 01, 2017 20:40 - CONCLUSION: 1. Heterogeneous appearance of the gallbladder suggesting gallstones and possible wall thickening. This finding could be evaluated with greater sensitivity and specificity using ultrasound. 2. Prominent amount of stool in the colon. Diffusely distended colon. No evidence of small bowel obstruction. 3. Fat-containing midline lower anterior abdominal wall hernia measuring 8 cm. 4. Patchy consolidation at the lung bases. Jeremy Nunes MD Physical Exam HEENT: normocephalic; atraumatic; no jaundice. CHEST: CTA CARDIAC: RRR + murmur ABDOMEN: Soft, nondistended, nontender; no hepatosplenomegaly; bowel sounds are present in all four quadrants. EXTREMITIES: No clubbing, cyanosis, or edema. SKIN: Normal; no rash; no jaundice. BINDERY TECHNICIAN: asleep (Stephany Barkley) Assessment and Plan Plan ASSESSMENT: - Fecal Impaction, Constipation. CT Scan abdomen and pelvis (05/01/17)---> Heterogeneous appearance of the gallbladder suggesting gallstones and possible wall thickening. This finding could be evaluated with greater sensitivity and specificity using ultrasound. Prominent amount of stool in the colon. Diffusely distended colon. No evidence of small bowel obstruction. Fat-containing midline lower anterior abdominal wall hernia measuring 8 cm. Patchy consolidation at the lung bases. S/P Disimpaction, enema, now on lactulose, senokot. + BM- large hard stool followed by multiple loose stools. Of note, TSH is elevated and this could be contributing to her constipation. - Elevated LFTs. Mild. CT noted Heterogeneous appearance of the gallbladder suggesting gallstones and possible wall thickening. RUQ US large stone w/contracted gallbladder. Hepatitis profile neg. - Cholelithiasis with possible wall thickening. + Nausea, but unclear if this was related to constipation/fecal impaction or other. RUQ US pending. - Elevated TSH, Down's syndrome. Per attending. 05/03/17 KUB showing mild to moderate colonic stool c/w constipation. US shows large stone with contracted gallbladder. hep panel neg. LFTs trending down. could consider HIDA but do not think pt able to sit still/tolerate. PLAN: - LOCO - continue pericolace - Supportive care - Pt seen and examined by Dr. Vincent and myself and this note is written on his behalf (Stephany Barkley) Physician Comments Seen and examined with ANTONETTE, constipation resolved. U/S noted. LFTs improving. Continue bowel regimen. GI will sign off, reconsult as needed. Thank you (Isha Vincent MD) Stephany Barkley May 03, 2017 15:24 Isha Vincent MD May 03, 2017 16:03
[2017-05-03 15:31] VITALS: BP 114/53; PULSE 60; RESP 16; TEMP 98; O2SAT 100
[2017-05-03 19:49] VITALS: BP 115/59; PULSE 72; RESP 18; TEMP 97.6; O2SAT 96
[2017-05-03] MEDS: PRAVASTATIN SOD 20 MG TAB PO SCH (20:06)
[2017-05-04] MEDS: SODIUM CHLOR 0.9% 1000 ML INJ 1,000 ML IV SCH (02:46)
[2017-05-04] MEDS: LACTULOSE SYRUP 20 GM/30 ML CUP PO SCH (05:01)
[2017-05-04 06:00] VITALS: BP 123/81; PULSE 117; RESP 18; TEMP 97.8; O2SAT 98
[2017-05-04 07:21] VITALS: BP 102/65; PULSE 65; RESP 18; TEMP 97.5
[2017-05-04] MEDS: ESCITALOPRAM OXALATE 20 MG TAB PO SCH (07:55)
[2017-05-04] MEDS: ARIPiprazole 30 MG TAB PO SCH (07:56)
[2017-05-04] MEDS: OXcarbazepine 600 MG TAB PO SCH (07:56)
[2017-05-04] MEDS: DOCUSATE SODIUM 50 MG/SENNA 8.6 MG TAB PO SCH (07:56)
[2017-05-04] MEDS: SODIUM CHLORIDE 0.9% FLUSH 10 ML FLUSH IV FLUSH SCH (07:57)
[2017-05-04] MEDS ORDERED: PERI PO (08:28)
--- NOTE | 2017-05-04 08:28 | HHI.DCPOC ---
Discharge Care Plan Diagnosis: (1) Constipation Goals to Promote Your Health * To prevent worsening of your condition and complications * To maintain your health at the optimal level Directions to Meet Your Goals Take your medications as prescribed Follow your dietary instruction Follow activity as directed Keep your appointments as scheduled Take your immunizations and boosters as scheduled If your symptoms worsen call your PCP, if no PCP go to Urgent Care Center or Emergency Room Smoking is Dangerous to Your Health. Avoid second hand smoke Call the 24-hour hour crisis hotline for domestic abuse at Conchita Eason PA-C May 04, 2017 8:28 am
--- NOTE | 2017-05-04 10:19 | HHI.DS ---
Discharge Summary Admission Date May 01, 2017 at 21:27 Discharge Date: May 04, 2017 Admitting Diagnosis constipation, GI Bleed (1) Constipation ICD Code: K59.00 - Constipation, unspecified Status: Acute (2) GI bleed ICD Code: K92.2 - Gastrointestinal hemorrhage, unspecified Status: Acute (3) Dehydration ICD Code: E86.0 - Dehydration (4) Down syndrome ICD Code: Q90.9 - Down syndrome, unspecified Status: Acute Procedures None Brief History - From Admission This is a 47-year-old female with Down's Syndrome who [facility] to constipation. Pt unable to provide history due to mental retardation, RN from facility at bedside providing history. States pt w / obvious fecal impaction, attempted disimpaction but unsuccessful, notes pt seems uncomfortable. Denies fever, chills or diarrhea, but notes few episodes of vomiting today. On arrival, BP 130/61, HR 89, O2 sat 98% on RA, Afebrile. Hemoglobin 9.7, previously 11.3 on 11/17/16. Chemistry unremarkable except for GFR 68. CT Abd/Pelvis w/ gallstones/possible wall thickening, prominent stool in colon w/ diffusely distended colon, no evidence of obstruction. S/p partial disimpaction in ER. Hemoccult +. CBC/BMP: 05/03/17 0515 05/03/17 0515 Significant Findings Laboratory Tests Test 05/01/17 18:44 05/02/17 04:40 05/02/17 15:25 05/02/17 16:55 Red Blood Count 2.91 MIL/MM3 (4.00-5.30) 2.83 MIL/MM3 (4.00-5.30) Hemoglobin 9.7 GM/DL (11.6-15.3) 9.6 GM/DL (11.6-15.3) Hematocrit 30.4 % (35.0-46.0) 29.7 % (35.0-46.0) Mean Corpuscular Volume 104.5 FL (80.0-100.0) 105.1 FL (80.0-100.0) Red Cell Distribution Width 19.1 % (11.6-17.2) 19.6 % (11.6-17.2) Neutrophils (%) (Auto) 81.0 % (16.0-70.0) 76.1 % (16.0-70.0) Random Glucose 61 MG/DL (74-106) Albumin 2.9 GM/DL (3.4-5.0) 2.8 GM/DL (3.4-5.0) Calcium Level 8.3 MG/DL (8.5-10.1) 8.4 MG/DL (8.5-10.1) Aspartate Amino Transf (AST/SGOT) 55 U/L (15-37) 49 U/L (15-37) Alanine Aminotransferase (ALT/SGPT) 60 U/L (10-53) 61 U/L (10-53) Chloride Level 109 MEQ/L (98-107) Estimat Glomerular Filtration Rate 68 ML/MIN (>89) 72 ML/MIN (>89) Mean Platelet Volume 11.1 FL (7.0-11.0) Alkaline Phosphatase 134 U/L (45-117) Iron Level 27 MCG/DL (50-170) Percent Iron Saturation 7.6 % (20-50) Thyroid Stimulating Hormone 3rd Gen 6.680 uIU/ML (0.358-3.740) Folate GREATER THAN 20.0 NG/ML Test 05/03/17 05:15 White Blood Count 3.1 TH/MM3 (4.0-11.0) Red Blood Count 2.66 MIL/MM3 (4.00-5.30) Hemoglobin 9.1 GM/DL (11.6-15.3) Hematocrit 28.3 % (35.0-46.0) Mean Corpuscular Volume 106.2 FL (80.0-100.0) Mean Corpuscular Hemoglobin 34.1 PG (27.0-34.0) Red Cell Distribution Width 19.5 % (11.6-17.2) Platelet Count 149 TH/MM3 (150-450) Monocytes (%) (Auto) 10.1 % (0.0-8.0) Eosinophils (%) (Auto) 7.1 % (0.0-4.0) Neutrophils # (Auto) 1.6 TH/MM3 (1.8-7.7) Lymphocytes # (Auto) 0.9 TH/MM3 (1.0-4.8) Blood Urea Nitrogen 4 MG/DL (7-18) Random Glucose 65 MG/DL (74-106) Albumin 2.7 GM/DL (3.4-5.0) Calcium Level 8.1 MG/DL (8.5-10.1) Aspartate Amino Transf (AST/SGOT) 46 U/L (15-37) Potassium Level 3.1 MEQ/L (3.5-5.1) PE at Discharge GENERAL: This is a middle-age down syndrome patient, in no apparent distress. SKIN: No rashes, warm and dry HEAD: Atraumatic. Normocephalic. EYES: Pupils equal round and reactive. Extraocular motions intact. No scleral icterus. ENT: Nose without bleeding, or drainage, Airway patent. NECK: Trachea midline. Supple CARDIOVASCULAR: Regular rate and rhythm positive systolic murmur RESPIRATORY: Fair air entry bilaterally. No wheezes, rales, or rhonchi. GASTROINTESTINAL: Abdomen soft, non-tender, nondistended. Positive bowel sounds MUSCULOSKELETAL: Extremities without clubbing, cyanosis, or edema. Pedal pulses appreciated NEUROLOGICAL: Awake and alert. Moves all extremity. Normal speech.no focal neurological deficit Hospital Course Patient admitted for fecal impact patient dehydration, elevated LFT with CT abdomen findings suggesting possible gallstone with wall thickening, patient started on bowel regimen, iv fluid, GI consulted, constipation improved, right upper quadrant ultrasound has been done did not show significant findings of colitiss positive large stones, hepatitis profile negative. Anemia workup showed iron panel consistent with iron deficiency however MCV was 108, normal B12 and folate, methylmalonic acid pending, I discussed with the nurse and the caregiver patient will need further follow up with hematology as an outpatient, will avoid iron supplement at this time due to the recent constipation. [id number] encounter performed with the patient on discharge day, as well as physical exam, summary of hospitalization course and postdischarge plan has been D/W the patient. D/W nurse D/W rifle case repairer. Discharge medications reviewed and printed and signed, post discharge follow up visit with PCP and other specialist as well as Brief hospital course and discharge summary has been placed. Pt Condition on Discharge: Stable Discharge Disposition: Discharge Home Discharge Time: > 30 minutes Discharge Instructions DIET: Follow Instructions for: As Tolerated, No Restrictions Speech Therapy-Diet Recommends: Honey Thickened Liquids, Pureed Activities you can perform: Regular-No Restrictions Follow up Referrals: Oncology/Hematology - 1 Week with Charlie Coburn MD PCP Follow-up - 1 Week with Néstor Correia Jr., MD (Paul) New Medications: Sennosides-Docusate Sodium (Gnp Senna Plus 8.6-50 mg) 8.6 Mg-50 Mg Tab 2 TAB PO BID for Bowel Management, #60 TAB Continued Medications: Albuterol 18 GM Inh (Ventolin Hfa 18 GM Inh) 90 Mcg/Act Aer 2 PUFF INH Q6H PRN for SHORTNESS OF BREATH, #1 INHALER 1 Refill Aripiprazole (Abilify) 30 Mg Tab 30 MG PO DAILY, #30 TAB 0 Refills Calcium Carbonate (Calcium) 600 Mg Tab 1200 MG PO BID Escitalopram (Lexapro) 20 Mg Tab 20 MG PO DAILY for DEPRESSIVE DISORDER, #30 TAB 0 Refills Oxcarbazepine (Trileptal) 600 Mg Tab 600 MG PO BID for EXPLOSIVE BEHAVIOR, #60 TAB 0 Refills Potassium Chloride ER (K-Tab) 10 Meq Tab 10 MEQ PO DAILY for Electrolyte Replacement, #30 TAB 0 Refills Quetiapine (Seroquel) 100 Mg Tab 100 MG PO BID, #60 TAB 0 Refills Simvastatin (Zocor) 10 Mg Tab 10 MG PO HS for Cholesterol Management, #30 TAB 0 Refills Discontinued Medications: Furosemide (Lasix) 40 Mg Tab 40 MG PO DAILY for EDEMA, #30 TAB 0 Refills Ele Tripp MD May 04, 2017 10:19
== END 2017-05-04 10:21 ==
LOC: NEPD 15:07 → NEDA 21:27 → NEPGCP 23:45 → NEPFCDU 05-03 19:02
PROVIDERS: ADMIT Hospitalist; ATTEND Hospitalist
DX: K59.00 Constipation, unspecified (principal); K92.2 Gastrointestinal hemorrhage, unspecified; E86.0 Dehydration; Q90.9 Down syndrome, unspecified; F79 Unspecified intellectual disabilities; K56.41 Fecal impaction; R79.89 Other specified abnormal findings of blood chemistry; D50.9 Iron deficiency anemia, unspecified; D53.9 Nutritional anemia, unspecified; D72.819 Decreased white blood cell count, unspecified; R74.8 Abnormal levels of other serum enzymes; K75.9 Inflammatory liver disease, unspecified; K80.20 Calculus of gallbladder without cholecystitis without obstruction; K43.9 Ventral hernia without obstruction or gangrene; E78.00 Pure hypercholesterolemia, unspecified; F41.9 Anxiety disorder, unspecified; Z79.899 Other long term (current) drug therapy
CPT/HCPCS: 74000; 74177; 76705; 76937; 80053; 80074; 82272; 82607; 82728; 82746; 83540; 83550; 83690; 83735; 83921; 84443; 85025; 85060; 85610; 85730; 86850; 86900; 86901; 96361; 96372; 96374; 99285; G0378; J2060; J7030; J7040; Q9967

== ENCOUNTER 2017-08-04 10:30 | Emergency (ER) | payer OTHER ==
[~2017-08-04 10:30] MED LIST changes: -ASPI-183 PO; -BACT2OIN2 TOPICAL; -CEPH500C PO; -CETALOT TOPICAL; -DEPO150I IM; -DIAZ5 PO; -FERR325T PO; -FLUT1SPR5 EACH NARE; -FURO1TAB60 PO; -GUAI200T PO; -LOTR15T TOPICAL; +PERI PO; -PRED10PA PO; -PROBCAP28 PO; +SERO100T PO; -THERTAB17 PO; -THICPOW5; -TYLE325T PO; -[UNRECOGNIZED DRUG - CODE] PO; -[UNRECOGNIZED DRUG - CODE] TOPICAL; -[UNRECOGNIZED DRUG - OTHER] TOP; -[UNRECOGNIZED DRUG - OTHER] TOP
[2017-08-04 10:33] VITALS: BP 124/58; PULSE 70; RESP 16; TEMP 98.4; O2SAT 99
--- NOTE | 2017-08-04 10:49 | PD ---
HPI Chief Complaint: Cold / Flu Symptoms Time Seen by Provider: 10:44 Travel History International Travel<30 days: No Contact w/Intl Traveler<30days: No Traveled to known affect area: No History of Present Illness HPI 47-year-old female presents to the emergency department with her occupational physician at bedside for evaluation of nasal drainage, productive cough that started yesterday. Caregivers that she had temp of up to 99.9 yesterday was given Tylenol. The patient is developmentally delayed and contributes little to her history. No nausea, vomiting, diarrhea. Otherwise, she has been acting normally according to the caregiver. No exacerbating or alleviating factors. Moderate severity. PFSH Past Medical History Anemia: Yes (ANEMIA; HYPERLIPIDEMIA) Arthritis: No Asthma: No Autoimmune Disease: No Blood Disorders: No Anxiety: Yes Depression: No Heart Rhythm Problems: No Cancer: No Cardiovascular Problems: No High Cholesterol: Yes Chemotherapy: No Chest Pain: No Congestive Heart Failure: No COPD: No Cerebrovascular Accident: No Developmental Delay: Yes (DOWN SYNDROME) Diabetes: No Diminished Hearing: No Endocrine: No Gastrointestinal Disorders: No GERD: No Glaucoma: No Genitourinary: No Headaches: No Hepatitis: No Hiatal Hernia: No Hypertension: No Immune Disorder: No Kidney Stones: No Musculoskeletal: No Neurologic: Yes Psychiatric: Yes Reproductive: No Respiratory: No Myocardial Infarction: No Pneumonia: Yes Radiation Therapy: No Renal Failure: No Seizures: Yes Sleep Apnea: No Thyroid Disease: No Ulcer: No Past Surgical History Abdominal Surgery: Yes ("GASTROINTESTINAL SURGERY UNSURE WHAT EXACTLY") AICD: No Joint Replacement: No Pacemaker: No Other Surgery: No Social History Alcohol Use: No Tobacco Use: No Substance Use: No Allergies-Medications (Allergen,Severity, Reaction): Coded Allergies: No Known Allergies (Unverified Adverse Reaction, Unknown, 05/01/17) Reported Meds & Prescriptions Reported Meds & Active Scripts Active Gnp Senna Plus 8.6-50 mg (Sennosides-Docusate Sodium) 8.6 Mg-50 Mg Tab 2 Tab PO BID Ventolin Hfa 18 GM Inh (Albuterol Sulfate) 90 Mcg/Act Aer 2 Puff INH Q6H PRN Reported Seroquel (Quetiapine Fumarate) 100 Mg Tab 100 Mg PO BID Calcium (Calcium Carbonate) 600 Mg Tab 1,200 Mg PO BID Zocor (Simvastatin) 10 Mg Tab 10 Mg PO HS K-Tab (Potassium Chloride) 10 Meq Tab 10 Meq PO DAILY Trileptal (Oxcarbazepine) 600 Mg Tab 600 Mg PO BID Lexapro (Escitalopram Oxalate) 20 Mg Tab 20 Mg PO DAILY Abilify (Aripiprazole) 30 Mg Tab 30 Mg PO DAILY Review of Systems Except as stated in HPI: all other systems reviewed are Neg Physical Exam Narrative GENERAL: Well-nourished, well-developed female patient, afebrile. SKIN: Focused skin assessment warm/dry. HEAD: Normocephalic. Atraumatic. ENT: Mucosa pink and moist. No erythema or exudates. No uvular edema. No uvular , palatal, or tonsillar deviation. Airway patent. Nasal turbinates appear normal without nasal blood, purulent drainage or septal hematoma. Bilateral tympanic membranes are clear without erythema or perforation. EYES: No scleral icterus. No injection or drainage. NECK: Supple, trachea midline. No JVD or lymphadenopathy. CARDIOVASCULAR: Regular rate and rhythm without murmurs, gallops, or rubs. RESPIRATORY: Breath sounds equal bilaterally. No accessory muscle use. Lungs sounds are clear to auscultation. GASTROINTESTINAL: Abdomen soft, non-tender, nondistended. MUSCULOSKELETAL: No cyanosis, or edema. BACK: Nontender without obvious deformity. No CVA tenderness. Data Data Last Documented VS Vital Signs Date Time Temp Pulse Resp B/P (MAP) Pulse Ox O2 Delivery O2 Flow Rate FiO2 08/04/17 11:04 Room Air 08/04/17 10:33 98.4 70 16 124/58 (80) 99 Orders Orders Influenzae A/B Antigen (08/04/17 10:47) [facility] Medical Decision Making Medical Screen Exam Complete: Yes Emergency Medical Condition: Yes Medical Record Reviewed: Yes Differential Diagnosis Influenza versus viral URI versus pneumonia Narrative Course 47-year-old developmentally delayed female presents to the emergency department for evaluation of cold/flulike symptoms that started yesterday. She does appear well on exam. Vital signs are stable. Influenza swab is ordered and pending. Influenza is negative. Patient will be discharged with a prescription for azithromycin. Caregiver verbalizes agreement and understanding. The patient was discharged in stable condition with instructions, including return instructions and follow up instructions. Diagnosis Primary Impression: URI (upper respiratory infection) Qualified Codes: J06.9 - Acute upper respiratory infection, unspecified Referrals: Primary Care Physician 2 days Patient Instructions: General Instructions, Upper Respiratory Infection (ED) Additional Instructions: Take antibiotic as directed until gone. Follow-up with your primary care physician. Return to the emergency department for any acute worsening of symptoms. Med/Other Pt SpecificInfo: Prescription(s) given Scripts Azithromycin (Zithromax Z-Nehemias) 250 Mg Dspk 250 MG PO DIRECTED for Infection, #1 DSPK 0 Refills 500 MG (2 tabs) day 1, then 1 tab days 2-5. Prov: Lupis 08/04/17 Disposition: 01 DISCHARGE HOME Condition: Stable Lupis Mon Aug 04, 2017 10:49
[2017-08-04] MEDS ORDERED: ZITHTAB PO (11:36)
== END 2017-08-04 11:49 | disposition home or self-care (01) ==
LOC: NEPK 10:30
DX: R62.59 Other lack of expected normal physiological development in childhood (principal); D64.9 Anemia, unspecified
CPT/HCPCS: 87804; 99283

== ENCOUNTER 2017-10-13 13:41 | Emergency (ER) | payer OTHER | END 2017-10-13 14:53 | disposition home or self-care (01) | LOC: NEPD 13:41 | DX: S01.01XA Laceration without foreign body of scalp, initial encounter (principal); Q90.9 Down syndrome, unspecified; D64.9 Anemia, unspecified; E78.00 Pure hypercholesterolemia, unspecified; F41.9 Anxiety disorder, unspecified; W07.XXXA Fall from chair, initial encounter | CPT/HCPCS: 99283 ==